=== PATIENT | female | born 1930 ===

== ENCOUNTER 2016-12-10 15:16 | Inpatient (IN) | payer MEDICARE, MEDICAID ==
--- NOTE | 2016-12-10 16:01 | ED PDOC ---
Lower Extremity Pain/Injury Time Seen by Provider: 12/10/16 15:55 Chief Complaint (Nursing): Lower Extremity Problem/Injury Chief Complaint (Provider): knee problem History Per: Patient, EMS, Family (Son), Other (Records) History/Exam Limitations: other (Mental status) Onset/Duration Of Symptoms: Days Current Symptoms Are (Timing): Still Present Additional Complaint(s): 86 y/o F with PMHx of R/knee replacement around 15 years ago presents with son transferred from [facility] for L/knee wound and hardware protruding from the lateral aspect of the knee. C/O pain with palpation in the area, denies vomiting, nausea, CP, palpitations, changes in urination or stools or SOB. Patient's son states they don't know exactly for how long the wound have been present. Denies recent trauma. Patient and son are poor historians. As per son, patient is being transferred for knee repair. [facility] to [facility] patient has Hx of liver cirrhosis and GI bleeding in the past. Past Medical History Vital Signs: Last Vital Signs Temp 97.3 F L 12/10/16 15:17 Pulse 64 12/10/16 15:17 Resp 16 12/10/16 15:17 BP 119/56 L 12/10/16 15:17 Pulse Ox 98 12/10/16 15:17 - Medical History PMH: Dementia, HTN - Surgical History Other surgeries: R/Knee replacement - Family History Family History: States: No Known Family Hx - Living Arrangements Living Arrangements: [facility] - Home Medications Home Medications: Ambulatory Orders Medication Instructions Recorded Acetaminophen [Tylenol 325mg tab] 650 mg PO Q6H PRN 05/23/16 Acetaminophen [Tylenol 325mg tab] 650 mg PO Q6H PRN 05/23/16 Citalopram [celeXA] 10 mg PO HS 05/23/16 Iron Polysaccharide [Ferrex-150] 150 mg PO DAILY 05/23/16 Lisinopril 2.5 mg PO DAILY 05/23/16 Magnesium Hydroxide [Milk Of 30 ml PO Q72 PRN 05/23/16 Magnesia] Pantoprazole Sodium [Protonix] 40 mg PO Q12H 05/23/16 Ursodiol [Marta] 250 mg PO BID 05/23/16 Donepezil [Aricept] 10 mg PO HS 12/10/16 Levothyroxine [Synthroid] 75 mcg PO DAILY 12/10/16 Memantine [Namenda] 10 mg PO BID 12/10/16 Multimineral/Multivitamin 1 tab PO DAILY 12/10/16 [Therapeutic-M Tab] Mupirocin 2% Ointment [Bactroban 1 appl TOP BID 12/10/16 Ointment] Propranolol [Inderal] 10 mg PO Q8H 12/10/16 - Allergies Allergies/Adverse Reactions: Allergies Allergy/AdvReac Type Severity Reaction Status Date / Time No Known Allergies Allergy Verified 05/23/16 11:21 Review of Systems ROS Statement: Except As Marked, All Systems Reviewed And Found Negative Musculoskeletal: Positive for: Other (Knee pain, knee wound) Physical Exam - Reviewed Nursing Documentation Reviewed: Yes Vital Signs Reviewed: Yes - Physical Exam Appears: Positive for: Non-toxic, No Acute Distress Skin: Positive for: Warm Eye Exam: Positive for: PERRL Cardiovascular/Chest: Positive for: Regular Rate, Rhythm. Negative for: Gallop Respiratory: Positive for: Normal Breath Sounds. Negative for: Crackles, Wheezing Pulses-Dorsalis Pedis (L): 2+ Pulses-Dorsalis Pedis (R): 2+ Gastrointestinal/Abdominal: Positive for: Soft. Negative for: Tenderness Extremity: Positive for: Deformity (Knee), Other (ROM R/knee slightly limited. THere is a linear wound in the anterolateral aspect of the r/knee about 4cm. Hardware observed to be protruding from the wound. NO cellulitis associated). Negative for: Pedal Edema, Calf Tenderness, Swelling Neurologic/Psych: Positive for: Alert, Other (Memory loss. ). Negative for: Oriented (Partially) - ECG O2 Sat by Pulse Oximetry: 98 Medical Decision Making Medical Decision Makin86 y/o with PMHx of knee replacement presents for knee pain and wound R/Knee wound S/p R/knee replacement 15 years ago No evident signs of skin or joint infection R/Knee xray and CT CBC/CMP/UA VS WNL Patient will be admitted for Orthopedic Sx eval Disposition - Clinical Impression Clinical Impression: Open wound of knee - Patient ED Disposition Is Patient to be Admitted: Yes - Disposition Disposition: Transfer of Care Disposition Time: 17:00 Condition: STABLE
--- NOTE | 2016-12-10 16:56 | RAD ---
PROCEDURE: Right Knee Radiographs. HISTORY: knee prostesis problem COMPARISON: Right knee radiographs 05/23/2016. FINDINGS: BONES: No acute fracture dislocation is identified. Diffuse osteopenia suggests osteoporosis. Prior right knee told knee replacement hardware is unchanged in appearance and positioning. Local soft tissues are stable and unremarkable appearing. No overt radiographic sign suggests loosening of either prosthetic device. JOINTS: As above. JOINT EFFUSION: None. OTHER FINDINGS: None. IMPRESSION: No acute fracture dislocation with diffuse osteopenia suggests osteoporosis. Normal change in the appearance of right total knee replacement hardware as discussed above.
[2016-12-10 16:59] LABS: BASO % 1.1 % (0.0-2.0); EOS # 0.2 K/uL (0.0-0.7); EOS % 6.2 % (0.0-4.0); HEMOGLOBIN 12.6 g/dL (12.0-16.0); LYMPH # 1.4 K/uL (1.0-4.3); LYMPH % 36.8 % (20.0-40.0); MEAN CELL VOLUME 94.3 fl (81.0-99.0); MEAN CORPUSCULAR HGB CONC 32.9 g/dL (33.0-37.0); MEAN PLATELET VOLUME 9.5 fl (7.2-11.7); MONO # 0.5 K/uL (0.0-0.8); NEUT # 1.6 K/uL (1.8-7.0); NEUT % 43.9 % (50.0-75.0); NRBC % 0.1 % (0.0-0.0); RBC 4.08 Mil/uL (3.80-5.20); RED CELL DISTRIBUTION WIDTH 15.3 % (11.5-14.5); WHITE BLOOD COUNT 3.7 K/uL (4.8-10.8)
--- NOTE | 2016-12-10 17:31 | CP.PCM.HP ---
History of Present Illness - History of Present Illness History of Present Illness: 86 yo female with history of CHF, DM2, Hypothyroidism, HLD, Dementia, HTN, Abdominal Mass, Malignant Ovarian Tumor and Liver Cirrhosis with bleeding esophageal varices last year brought in here as per recommendation from Dr Castle for possible surgical procedure on the right knee which had started leaking serous fluid a year ago later forming a crater exposing a white prosthetic material on the right knee. 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 Patient had been non-ambulatory since then. Present on Admission - Present on Admission Any Indicators Present on Admission: No History of DVT/PE: No History of Uncontrolled Diabetes: No Urinary Catheter: No Decubitus Ulcer Present: No Review of Systems - Review of Systems Systems not reviewed;Unavailable: Dementia Past Patient History - Tetanus Immunizations Tetanus Immunization: Unknown - Past Social History Smoking Status: Unknown If Ever Smoked Alcohol: Other (relatives remembered her drinking heavily before) Home Situation {Lives}: Alf - CARDIAC Hx Congestive Heart Failure: Yes Hx Hypertension: Yes - PULMONARY Hx Pneumonia: Yes - NEUROLOGICAL Hx Dementia: Yes - ENDOCRINE/METABOLIC Hx Diabetes Mellitus Type 2: Yes Hx Hypothyroidism: Yes - MUSCULOSKELETAL/RHEUMATOLOGICAL Hx Arthritis: Yes Hx Fractures: Yes Other/Comment: gen. muscle weakness, rt. artificial knee joint, diff. walking - GASTROINTESTINAL Other/Comment: gi hemorrhage - GENITOURINARY/GYNECOLOGICAL Hx Urinary Tract Infection: Yes Other/Comment: malignant neoplasm ovary - PSYCHIATRIC Hx Substance Use: No - SURGICAL HISTORY Hx Surgeries: Yes Hx Orthopedic Surgery: Yes - ANESTHESIA Hx Anesthesia: Yes Meds Allergies/Adverse Reactions: Allergies Allergy/AdvReac Type Severity Reaction Status Date / Time No Known Allergies Allergy Verified 05/23/16 11:21 Physical Exam - Constitutional Appears: No Acute Distress - Head Exam Head Exam: ATRAUMATIC - Eye Exam Eye Exam: absent: Scleral icterus - ENT Exam ENT Exam: Mucous Membranes Moist - Neck Exam Neck exam: Negative for: Meningismus - Respiratory Exam Respiratory Exam: absent: Rhonchi, Wheezes, Respiratory Distress - Cardiovascular Exam Cardiovascular Exam: REGULAR RHYTHM, +S1, +S2 - GI/Abdominal Exam GI & Abdominal Exam: Distended, Soft. absent: Tenderness - Rectal Exam Rectal Exam: Deferred - Extremities Exam Extremities exam: Negative for: calf tenderness, full ROM (right knee with 2 cm crater exposing a white plastic like material), pedal edema - Neurological Exam Neurological exam: Alert - Psychiatric Exam Psychiatric exam: Normal Affect - Skin Skin Exam: Dry Results - Vital Signs Recent Vital Signs: Last Vital Signs Temp 97.3 F L 12/10/16 15:17 Pulse 64 12/10/16 15:17 Resp 16 12/10/16 15:17 BP 119/56 L 12/10/16 15:17 Pulse Ox 98 12/10/16 16:52 - Labs Result Diagrams: 12/10/16 16:40 Labs: Laboratory Results - last 24 hr 12/10/16 16:40 WBC 3.7 L RBC 4.08 Hgb 12.6 Hct 38.4 MCV 94.3 D MCH 31.0 MCHC 32.9 L RDW 15.3 H Plt Count 96 L MPV 9.5 Neut % (Auto) 43.9 L Lymph % (Auto) 36.8 Florence % (Auto) 12.0 H Eos % (Auto) 6.2 H Baso % (Auto) 1.1 Neut # 1.6 L Lymph # 1.4 Florence # 0.5 Eos # 0.2 Baso # 0.0 Assessment & Plan (1) Open wound of knee Status: Acute Comment: admit to med/surg. blood culture x 2. wound cultutre on discharge of right knee. ID consult with Dr Saeed. cardiology consult with Dr Monaco for cardiac clearance. Zosyn 3.375 gm IV q 6hrs. Vancomycin 1gm IV q 12hrs. Vanco trough on at 830am (2) Liver cirrhosis Status: Acute Comment: continue Propranolol 10mg PO q 8hrs. abdominal sonogram (3) CHF (congestive heart failure) Status: Acute Comment: ECHO. cardiology consult with Dr Monaco (4) DM2 (diabetes mellitus, type 2) Status: Acute Comment: accuchek ACHS. HgA1C, BMP in am. history of diabetes noted in correction paper and confirmed by family (5) HTN (hypertension) Status: Acute Comment: BP controlled. continue Lisinopril plus Propranolol (given for portal HTN) (6) Dementia Status: Acute Comment: on Namenda and Aricept (7) DVT prophylaxis Status: Acute Comment: avoid anti coagulant because of history of GI bleed and esophageal varices
[2016-12-10 17:32] LABS: BLOOD UREA NITROGEN 12 mg/dl (7-17); CALCIUM 9.6 mg/dL (8.4-10.2); GFR AFRICAN-AMERICAN > 60; GFR NON-AFRICAN AMERICAN > 60
[2016-12-10 17:38] LABS: INR 1.2 (0.9-1.2); PARTIAL THROMBOPLASTIN TIME 37.8 Seconds (25.6-37.1); PROTHROMBIN TIME 12.6 Seconds (9.8-13.1)
[2016-12-10] MEDS ORDERED: Magnesium Hydroxide Susp 30 ml UD PO PRN (17:50)
--- NOTE | 2016-12-10 18:28 | CP.PCM.PN ---
Subjective - Date & Time of Evaluation Date of Evaluation: 12/10/16 Time of Evaluation: 18:26 - Subjective Subjective: I D NOTE INITIAL ANTIBIOTIC COVERAGE ORDERED Objective - Vital Signs/Intake and Output Vital Signs (last 24 hours): Temp Pulse Resp BP Pulse Ox 98.2 F 68 18 145/53 L 99 12/10/16 18:22 12/10/16 18:22 12/10/16 18:22 12/10/16 18:22 12/10/16 18:19 - Medications Medications: Current Medications Citalopram Hydrobromide (Celexa) 10 mg PO HS [facility] Donepezil HCl (Aricept) 10 mg PO HS [facility] Home Med (Iron Polysaccharide [Ferrex-150]) 150 mg PO DAILY [facility] Home Med (Ursodiol [Marta]) 250 mg PO BID [facility] Vancomycin HCl 1 gm/ Sodium (Chloride) 250 mls @ 166.667 mls/hr IVPB Q12 [facility] Piperacillin Sod/Tazobactam (Sod 3.375 gm/ Sodium Chloride) 100 mls @ 100 mls/ hr IVPB Q12 [facility] Levothyroxine Sodium (Synthroid) 75 mcg PO DAILY@0630 [facility] Lisinopril (Zestril) 2.5 mg PO DAILY [facility] Magnesium Hydroxide (Milk Of Magnesia) 30 ml PO Q72 PRN PRN Reason: Constipation Memantine (Namenda) 10 mg PO BID [facility] Multivitamins/Minerals (Therapeutic-M Tab) 1 tab PO DAILY [facility] Mupirocin (Bactroban Ointment) 1 applic TOP BID [facility] Pantoprazole Sodium (Protonix Ec Tab) 40 mg PO Q12H [facility] Propranolol HCl (Inderal) 10 mg PO Q8H [facility] - Labs Labs: 12/10/16 16:40 12/10/16 16:40 PT 12.6 Seconds (9.8-13.1) 12/10/16 16:40 INR 1.2 (0.9-1.2) 12/10/16 16:40 APTT 37.8 Seconds (25.6-37.1) H 12/10/16 16:40
[2016-12-10] MEDS: Piperacillin/Tazobact 3.375 GM in Sodium Chloride 0.9% 100 ML IVPB SCH (21:00)
[2016-12-10] MEDS: Pantoprazole 40 mg EC Tab PO SCH (21:59)
[2016-12-11] MEDS: Levothyroxine 75 MCG TAB PO SCH (06:29)
[2016-12-11] MEDS: Pantoprazole 40 mg EC Tab PO SCH ×2 (07:05→18:11)
[2016-12-11 07:28] LABS: BLOOD UREA NITROGEN 12 mg/dl (7-17); CALCIUM 9.3 mg/dL (8.4-10.2); GFR AFRICAN-AMERICAN > 60; GFR NON-AFRICAN AMERICAN 59
[2016-12-11 07:33] LABS: EOS # 0.2 K/uL (0.0-0.7); EOS % 5.9 % (0.0-4.0); HEMOGLOBIN 11.9 g/dL (12.0-16.0); LYMPH # 1.1 K/uL (1.0-4.3); LYMPH % 32.8 % (20.0-40.0); MEAN CELL VOLUME 94.7 fl (81.0-99.0); MEAN CORPUSCULAR HGB CONC 32.8 g/dL (33.0-37.0); MONO # 0.4 K/uL (0.0-0.8); MONO % 12.1 % (0.0-10.0); NEUT # 1.7 K/uL (1.8-7.0); NEUT % 48.2 % (50.0-75.0); NRBC % 0.4 % (0.0-0.0); RBC 3.82 Mil/uL (3.80-5.20); RED CELL DISTRIBUTION WIDTH 15.3 % (11.5-14.5); WHITE BLOOD COUNT 3.5 K/uL (4.8-10.8)
[2016-12-11] MEDS ORDERED: URSODIOL 250 MG PO SCH (09:00)
[2016-12-11] MEDS: Multivitamin With Minerals Tab PO SCH (09:06)
[2016-12-11] MEDS: Piperacillin/Tazobact 3.375 GM in Sodium Chloride 0.9% 100 ML IVPB SCH ×2 (09:08→20:38)
--- NOTE | 2016-12-11 09:35 | CARD ---
APPROVED REPORT EXAM: Two-dimensional and M-mode echocardiogram with Doppler and color Doppler. Other Information Quality : FairRhythm : NSR Technically limited study due to vERY POOR PARASTERNAL ECHO WINDOW INDICATION Pre-Op Mitral Valve E/A ratio0.0 TDI E/Lateral E'0.0E/Medial E'0.0 Tricuspid Valve TR Peak [id number] [id number] Peak Gr.24mmHg [id number] LEFT VENTRICLE The left ventricle is normal size. There is normal left ventricular wall thickness. Overall LV systolic function appeared preserved. LVEF could not be assesed. Individual LV segments could not be examined and their motion pattern could not be evaluated Could not be assesed. RIGHT VENTRICLE The right ventricle is normal size. There is normal right ventricular wall thickness. The right ventricular systolic function is normal. ATRIA The left atrium size is normal. The right atrium size is normal. AORTIC VALVE Appeared sclerotic No aortic regurgitation is present. Systolic flow pattern could not be evaluated MITRAL VALVE Mitral annular calcification is moderate to severe. There is no evidence of mitral valve prolapse. Could not be evaluated. Could not be evaluated. TRICUSPID VALVE The tricuspid valve is normal in structure. There is mild tricuspid regurgitation. Right ventricular systolic pressure is estimated at 33 mmHg. There is mild pulmonary hypertension. PULMONIC VALVE The pulmonic valve is not well visualized. Could not be evaluated GREAT VESSELS The aortic root is normal in size. The IVC was not visualized. PERICARDIAL EFFUSION The pericardium appears normal. <Conclusion> Extremely poor echo window with poor imges and an extremely poor doppler signal Mitral and aortic valves could not be interrogated. The left ventricle is normal size. There is normal left ventricular wall thickness. Individual LV segments could not be examined and their motion pattern could not be evaluated Overall LV systolic function appeared preserved. LVEF could not be assesed.
--- NOTE | 2016-12-11 10:05 | CT ---
PROCEDURE: HISTORY: knee prostesis problem COMPARISON: TECHNIQUE: FINDINGS: Evaluation demonstrates previous total knee arthroplasty with streak artifact and beam hardening artifact limiting assessment. The lateral patella appears to encroach and protrude beyond the skin surface. Recommend clinical correlation. The patella is not well visualized due to beam hardening artifact. There is no joint effusion. There is diffuse muscle atrophy. There is no evidence of loosening or infection. There is no fracture or dislocation. IMPRESSION: As above.
--- NOTE | 2016-12-11 11:52 | CP.PCM.CON ---
History of Present Illness - History of Present Illness History of Present Illness: THE PATIENT IS AN 86 YEAR OLD FEMALE [place] WHO HAD A RIGHT TKR SEVERAL YEARS AGO AND HAS HAD A SKIN OPENING OVER IT WITH DRAINAGE FOR ABOUT ONE YEAR TREATED CONSERVATIVE WITH LOCAL WOUND CARE. THE PLASTIC HARDWARE IS NOW SHOWING SO SHE WAS ADMITTED FOR WOUND ASRE ORTHOPEDIC INTERVENTION. SHE IS [place] IN THE [place]. SHE ALSO HAS A HISTORY OF DEMENTIA, CIRRHOSIS OF THE LIVER WITH A GI BLEED ABOUT 6 MOS AGO, HYPERTENSION, HYPERLIPIDEMIA AND DIABETES MELLITUS. HER MEDICAL CHART STATES THAT SHE HAD CHF BUT THE FAMILY IS UNAWARE OF ANY CAD OR HI AND IS UNAWARE OF A CHF DIAGNOSIS BUT SHE DID HAVE SOB BEFORE. CARDIOLOGY IS NOW ASKED TO SEE HER FOR CLEARANCE SHOULD SHE UNDERGO SURGERY. SHE DENIES CHEST PAIN OR SOB AT THE RESENT TIME. Past Patient History - Tetanus Immunizations Tetanus Immunization: Unknown - Past Medical History & Family History Past Medical History?: Yes - Past Social History Smoking Status: Unknown If Ever Smoked - CARDIAC Hx Cardiac Disorders: Yes Hx Congestive Heart Failure: Yes Hx Hypercholesterolemia: Yes Hx Hypertension: Yes - PULMONARY Hx Respiratory Disorders: Yes Hx Pneumonia: Yes - NEUROLOGICAL Hx Dementia: Yes - RENAL Hx Chronic Kidney Disease: Yes - ENDOCRINE/METABOLIC Hx Endocrine Disorders: Yes Hx Diabetes Mellitus Type 2: Yes Hx Hypothyroidism: Yes - HEMATOLOGICAL/ONCOLOGICAL Hx Blood Disorders: Yes - MUSCULOSKELETAL/RHEUMATOLOGICAL Hx Musculoskeletal Disorders: Yes Hx Arthritis: Yes Hx Falls: (unknown) - GASTROINTESTINAL Hx Liver Failure: Yes (liver cirrhosis) Other/Comment: gi hemorrhage/abdominal mass /bleeding esophageal varices - GENITOURINARY/GYNECOLOGICAL Hx Genitourinary Disorders: Yes Hx Ovarian Cancer: Yes (malignant ovarian tumor) Hx Urinary Tract Infection: Yes - PSYCHIATRIC Hx Psychophysiologic Disorder: Yes Hx Substance Use: (unknown) - SURGICAL HISTORY Hx Surgeries: Yes Hx Orthopedic Surgery: Yes (rt knee replacement 20 yrs ago) - ANESTHESIA Hx Anesthesia: Yes Hx Anesthesia Reactions: No Meds Allergies/Adverse Reactions: Allergies Allergy/AdvReac Type Severity Reaction Status Date / Time No Known Allergies Allergy Verified 05/23/16 11:21 - Medications Medications: Current Medications Citalopram Hydrobromide (Celexa) 10 mg PO HS [facility] Last Admin: 12/10/16 21:57 Dose: 10 mg Donepezil HCl (Aricept) 10 mg PO HS [facility] Last Admin: 12/10/16 21:57 Dose: 10 mg Home Med (Iron Polysaccharide [Ferrex-150]) 150 mg PO DAILY [facility] Home Med (Ursodiol [Marta]) 250 mg PO BID [facility] Vancomycin HCl 1 gm/ Sodium (Chloride) 250 mls @ 166.667 mls/hr IVPB Q12 [facility] Last Admin: 12/11/16 09:07 Dose: 166.667 mls/hr Piperacillin Sod/Tazobactam (Sod 3.375 gm/ Sodium Chloride) 100 mls @ 100 mls/ hr IVPB Q12 [facility] Last Admin: 12/11/16 09:08 Dose: 100 mls/hr Levothyroxine Sodium (Synthroid) 75 mcg PO DAILY@0630 [facility] Last Admin: 12/11/16 06:29 Dose: 75 mcg Lisinopril (Zestril) 2.5 mg PO DAILY [facility] Last Admin: 12/11/16 09:03 Dose: 2.5 mg Magnesium Hydroxide (Milk Of Magnesia) 30 ml PO Q72 PRN PRN Reason: Constipation Memantine (Namenda) 10 mg PO BID [facility] Last Admin: 12/11/16 09:05 Dose: 10 mg Multivitamins/Minerals (Therapeutic-M Tab) 1 tab PO DAILY [facility] Last Admin: 12/11/16 09:06 Dose: 1 tab Mupirocin (Bactroban Ointment) 1 applic TOP BID [facility] Last Admin: 12/11/16 09:09 Dose: 1 applic Pantoprazole Sodium (Protonix Ec Tab) 40 mg PO Q12H [facility] Last Admin: 12/11/16 07:05 Dose: 40 mg Propranolol HCl (Inderal) 10 mg PO Q8H [facility] Last Admin: 12/11/16 09:04 Dose: 10 mg Physical Exam - Respiratory Exam Respiratory Exam: Clear to Auscultation Bilateral - Cardiovascular Exam Cardiovascular Exam: REGULAR RHYTHM, +S1, +S2 - Extremities Exam Additional comments: NO LE EDEMA - Additional Findings Additional findings: EKG NSR ECHO SHOWS GOOD LV SYSTOLIC FUNCTION, MITRAL ANNULAR CALCIFICATION, AORTIC SCLEROSIS WITHOUT STENOSIS INR 1,[address] 80K Results - Vital Signs Recent Vital Signs: Last Vital Signs Temp 98.1 F 12/11/16 07:46 Pulse 59 L 12/11/16 09:04 Resp 20 12/11/16 07:46 BP 152/68 H 12/11/16 09:04 Pulse Ox 98 12/11/16 07:46 - Labs Result Diagrams: 12/11/16 06:25 12/11/16 06:25 Labs: Laboratory Results - last 24 hr 12/10/16 12/10/16 12/10/16 16:40 16:40 16:40 WBC 3.7 L RBC 4.08 Hgb 12.6 Hct 38.4 MCV 94.3 D MCH 31.0 MCHC 32.9 L RDW 15.3 H Plt Count 96 L MPV 9.5 Neut % (Auto) 43.9 L Lymph % (Auto) 36.8 Smith % (Auto) 12.0 H Eos % (Auto) 6.2 H Baso % (Auto) 1.1 Neut # 1.6 L Lymph # 1.4 Smith # 0.5 Eos # 0.2 Baso # 0.0 PT 12.6 INR 1.2 APTT 37.8 H Sodium 136 Potassium 4.5 Chloride 103 Carbon Dioxide 26 Anion Gap 12 BUN 12 Creatinine 0.8 Est GFR ( Amer) > 60 Est GFR (Non-Af Amer) > 60 POC Glucose (mg/dL) Random Glucose 81 Calcium 9.6 Blood Type Antibody Screen BBK History Checked 12/10/16 12/10/16 12/10/16 16:40 18:14 22:59 WBC RBC Hgb Hct MCV MCH MCHC RDW Plt Count MPV Neut % (Auto) Lymph % (Auto) Smith % (Auto) Eos % (Auto) Baso % (Auto) Neut # Lymph # Smith # Eos # Baso # PT INR APTT Sodium Potassium Chloride Carbon Dioxide Anion Gap BUN Creatinine Est GFR ( Amer) Est GFR (Non-Af Amer) POC Glucose (mg/dL) 90 76 Random Glucose Calcium Blood Type O POSITIVE Antibody Screen Negative BBK History Checked Patient has bt 12/11/16 12/11/16 12/11/16 06:25 06:25 06:43 WBC 3.5 L RBC 3.82 Hgb 11.9 L Hct 36.2 MCV 94.7 MCH 31.0 MCHC 32.8 L RDW 15.3 H Plt Count 80 L MPV 9.0 Neut % (Auto) 48.2 L Lymph % (Auto) 32.8 Smith % (Auto) 12.1 H Eos % (Auto) 5.9 H Baso % (Auto) 1.0 Neut # 1.7 L Lymph # 1.1 Smith # 0.4 Eos # 0.2 Baso # 0.0 PT INR APTT Sodium 137 Potassium 4.1 Chloride 105 Carbon Dioxide 25 Anion Gap 11 BUN 12 Creatinine 0.9 Est GFR ( Amer) > 60 Est GFR (Non-Af Amer) 59 POC Glucose (mg/dL) 78 Random Glucose 76 Calcium 9.3 Blood Type Antibody Screen BBK History Checked 12/11/16 10:37 WBC RBC Hgb Hct MCV MCH MCHC RDW Plt Count MPV Neut % (Auto) Lymph % (Auto) Smith % (Auto) Eos % (Auto) Baso % (Auto) Neut # Lymph # Smith # Eos # Baso # PT INR APTT Sodium Potassium Chloride Carbon Dioxide Anion Gap BUN Creatinine Est GFR ( Amer) Est GFR (Non-Af Amer) POC Glucose (mg/dL) 79 Random Glucose Calcium Blood Type Antibody Screen BBK History Checked Assessment & Plan - Assessment and Plan (Free Text) Assessment: REMOTE RIGHT TKR WITH WOUND OPENING AND EXPOSURE OF ORTHOPEDIC HARDWARE STABLE CARDIAC HISTORY. CHF HISTORY? HYPERTENSION HYPERLIPIDEMIA CIRRHOSIS OF THE LIVER DEMENTIA THROMBOCYTOPENIA Plan: CONTINUE METOPROLOL AND ZESTRIL IV ANTIBIOTICS PER ID HEMATOLOGY TO SEE THE FAMILY WANTS TO DISCUSS TREATMENT OPTIONS WITH DR WEISS SHE IS A HIGH RISK FOR SURGERY AND IS BEDRIDDEN THE PATIENT IS CLEARED FOR SURGERY FROM THE CARDIAC VIEWPOINT
--- NOTE | 2016-12-11 15:20 | CP.PCM.PN ---
Subjective - Date & Time of Evaluation Date of Evaluation: 12/11/16 Time of Evaluation: 11:20 - Subjective Subjective: Pt seen and examined. Appeared calm and relax. Denied any complaint. Objective - Vital Signs/Intake and Output Vital Signs (last 24 hours): Temp Pulse Resp BP Pulse Ox 98.1 F 59 L 20 152/68 H 98 12/11/16 07:46 12/11/16 09:04 12/11/16 07:46 12/11/16 09:04 12/11/16 07:46 - Medications Medications: Current Medications Citalopram Hydrobromide (Celexa) 10 mg PO [facility] Last Admin: 12/10/16 21:57 Dose: 10 mg Donepezil HCl (Aricept) 10 mg PO [facility] Last Admin: 12/10/16 21:57 Dose: 10 mg Home Med (Iron Polysaccharide [Ferrex-150]) 150 mg PO DAILY [facility] Home Med (Ursodiol [Marta]) 250 mg PO BID [facility] Vancomycin HCl 1 gm/ Sodium (Chloride) 250 mls @ 166.667 mls/hr IVPB Q12 [facility] Last Admin: 12/11/16 09:07 Dose: 166.667 mls/hr Piperacillin Sod/Tazobactam (Sod 3.375 gm/ Sodium Chloride) 100 mls @ 100 mls/ hr IVPB Q12 [facility] Last Admin: 12/11/16 09:08 Dose: 100 mls/hr Levothyroxine Sodium (Synthroid) 75 mcg PO DAILY@0630 [facility] Last Admin: 12/11/16 06:29 Dose: 75 mcg Lisinopril (Zestril) 2.5 mg PO DAILY [facility] Last Admin: 12/11/16 09:03 Dose: 2.5 mg Magnesium Hydroxide (Milk Of Magnesia) 30 ml PO Q72 PRN PRN Reason: Constipation Memantine (Namenda) 10 mg PO BID [facility] Last Admin: 12/11/16 09:05 Dose: 10 mg Multivitamins/Minerals (Therapeutic-M Tab) 1 tab PO DAILY [facility] Last Admin: 12/11/16 09:06 Dose: 1 tab Mupirocin (Bactroban Ointment) 1 applic TOP BID [facility] Last Admin: 12/11/16 09:09 Dose: 1 applic Pantoprazole Sodium (Protonix Ec Tab) 40 mg PO Q12H [facility] Last Admin: 12/11/16 07:05 Dose: 40 mg Propranolol HCl (Inderal) 10 mg PO Q8H [facility] Last Admin: 12/11/16 09:04 Dose: 10 mg - Labs Labs: 12/11/16 06:25 12/11/16 06:25 PT 12.6 Seconds (9.8-13.1) 12/10/16 16:40 INR 1.2 (0.9-1.2) 12/10/16 16:40 APTT 37.8 Seconds (25.6-37.1) H 12/10/16 16:40 - Constitutional Appears: No Acute Distress - Head Exam Head Exam: ATRAUMATIC - Eye Exam Eye Exam: absent: Scleral icterus - ENT Exam ENT Exam: Mucous Membranes Moist - Neck Exam Neck Exam: absent: Meningismus - Respiratory Exam Respiratory Exam: absent: Rhonchi, Wheezes, Respiratory Distress - Cardiovascular Exam Cardiovascular Exam: REGULAR RHYTHM, +S1, +S2 - GI/Abdominal Exam GI & Abdominal Exam: Soft. absent: Tenderness - Rectal Exam Rectal Exam: Deferred - Extremities Exam Additional comments: right knee with 2 cm crater exposing a white plastic like material - Neurological Exam Neurological Exam: Alert - Psychiatric Exam Psychiatric exam: Flat Affect - Skin Skin Exam: Dry, Intact Assessment and Plan (1) Open wound of knee Status: Acute (2) Liver cirrhosis Status: Acute (3) CHF (congestive heart failure) Status: Acute (4) DM2 (diabetes mellitus, type 2) Status: Acute (5) HTN (hypertension) Status: Acute (6) Dementia Status: Acute (7) DVT prophylaxis Status: Acute - Assessment and Plan (Free Text) Assessment: 86 yo female with history of CHF, DM2, Hypothyroidism, HLD, Dementia, HTN, Abdominal Mass, Malignant Ovarian Tumor and Liver Cirrhosis with bleeding esophageal varices last year brought in here as per recommendation from Dr Castle for possible surgical procedure on the right knee which had started leaking serous fluid a year ago later forming a crater exposing a white prosthetic material on the right knee. 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 Patient had been non-ambulatory since then. (1) Open wound of knee blood culture and wound culture: pending ID consult with Dr Saeed appreciated Dr Monaco clearing patient for surgical procedure continue Zosyn 3.375 gm IV q 6hrs and Vancomycin 1gm IV q 12hrs. Vanco trough tomorrow at 830am (2) Liver cirrhosis continue Propranolol 10mg PO q 8hrs. noted to have history of portal HTN and esophageal varices (3) CHF (congestive heart failure) ECHO: preserved LV function Dr Monaco on consult, cardiac clearance approved (4) DM2 (diabetes mellitus, type 2) BS within normal range without medication HgA1C: pending patient may not have diabetes (5) HTN (hypertension) BP controlled. 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
--- NOTE | 2016-12-11 16:32 | CP.PCM.CON ---
History of Present Illness - History of Present Illness History of Present Illness: ID: 86 yo amber sdpeaking female CC : open R knee joint injury now 11 yrs as/p index arthroplasty HPI: [id number] yo female well known to my practice presents s/P open laceration to R knee 11 yrs s/p index arthroplasty. Pt presents with open knee joint thru ER Pt had been consulted by DR Howie Dickerson when pt was in pt at [facility]. Pt admitted for medical clearance and for Arthrotomy/ irrigation and debridemnt and possible patella revision/possible patellectomy and extensor reconstruction ( David procedure) Past Patient History - Tetanus Immunizations Tetanus Immunization: Unknown - Past Medical History & Family History Past Medical History?: Yes - Past Social History Smoking Status: Unknown If Ever Smoked - CARDIAC Hx Cardiac Disorders: Yes Hx Congestive Heart Failure: Yes Hx Hypercholesterolemia: Yes Hx Hypertension: Yes - PULMONARY Hx Respiratory Disorders: Yes Hx Pneumonia: Yes - NEUROLOGICAL Hx Dementia: Yes - RENAL Hx Chronic Kidney Disease: Yes - ENDOCRINE/METABOLIC Hx Endocrine Disorders: Yes Hx Diabetes Mellitus Type 2: Yes Hx Hypothyroidism: Yes - HEMATOLOGICAL/ONCOLOGICAL Hx Blood Disorders: Yes - MUSCULOSKELETAL/RHEUMATOLOGICAL Hx Musculoskeletal Disorders: Yes Hx Arthritis: Yes Hx Falls: (unknown) - GASTROINTESTINAL Hx Liver Failure: Yes (liver cirrhosis) Other/Comment: gi hemorrhage/abdominal mass /bleeding esophageal varices - GENITOURINARY/GYNECOLOGICAL Hx Genitourinary Disorders: Yes Hx Ovarian Cancer: Yes (malignant ovarian tumor) Hx Urinary Tract Infection: Yes - PSYCHIATRIC Hx Psychophysiologic Disorder: Yes Hx Substance Use: (unknown) - SURGICAL HISTORY Hx Surgeries: Yes Hx Orthopedic Surgery: Yes (rt knee replacement 20 yrs ago) - ANESTHESIA Hx Anesthesia: Yes Hx Anesthesia Reactions: No Meds Allergies/Adverse Reactions: Allergies Allergy/AdvReac Type Severity Reaction Status Date / Time No Known Allergies Allergy Verified 05/23/16 11:21 - Medications Medications: Current Medications Citalopram Hydrobromide (Celexa) 10 mg PO [facility] Last Admin: 12/10/16 21:57 Dose: 10 mg Donepezil HCl (Aricept) 10 mg PO [facility] Last Admin: 12/10/16 21:57 Dose: 10 mg Home Med (Iron Polysaccharide [Ferrex-150]) 150 mg PO DAILY [facility] Home Med (Ursodiol [Marta]) 250 mg PO BID [facility] Vancomycin HCl 1 gm/ Sodium (Chloride) 250 mls @ 166.667 mls/hr IVPB Q12 [facility] Last Admin: 12/11/16 09:07 Dose: 166.667 mls/hr Piperacillin Sod/Tazobactam (Sod 3.375 gm/ Sodium Chloride) 100 mls @ 100 mls/ hr IVPB Q12 [facility] Last Admin: 12/11/16 09:08 Dose: 100 mls/hr Levothyroxine Sodium (Synthroid) 75 mcg PO DAILY@0630 [facility] Last Admin: 12/11/16 06:29 Dose: 75 mcg Lisinopril (Zestril) 2.5 mg PO DAILY [facility] Last Admin: 12/11/16 09:03 Dose: 2.5 mg Magnesium Hydroxide (Milk Of Magnesia) 30 ml PO Q72 PRN PRN Reason: Constipation Memantine (Namenda) 10 mg PO BID [facility] Last Admin: 12/11/16 09:05 Dose: 10 mg Multivitamins/Minerals (Therapeutic-M Tab) 1 tab PO DAILY [facility] Last Admin: 12/11/16 09:06 Dose: 1 tab Mupirocin (Bactroban Ointment) 1 applic TOP BID [facility] Last Admin: 12/11/16 09:09 Dose: 1 applic Pantoprazole Sodium (Protonix Ec Tab) 40 mg PO Q12H [facility] Last Admin: 12/11/16 07:05 Dose: 40 mg Propranolol HCl (Inderal) 10 mg PO Q8H [facility] Last Admin: 12/11/16 09:04 Dose: 10 mg Physical Exam - Additional Findings Additional findings: Exam sysrtemic excam- please refer to Dr Candelaria/DR Del Toro and DSr Badinj consult Musculoskekltal stance/ gait- defrred pt with open laceration lateral aspect of patell Xray reviewd- acceptable position of construct Results - Vital Signs Recent Vital Signs: Last Vital Signs Temp 98.1 F 12/11/16 07:46 Pulse 59 L 12/11/16 09:04 Resp 20 12/11/16 07:46 BP 152/68 H 12/11/16 09:04 Pulse Ox 98 12/11/16 07:46 - Labs Result Diagrams: 12/11/16 06:25 12/11/16 06:25 Labs: Laboratory Results - last 24 hr 0812/10/16 12/10/16 16:40 16:40 16:40 WBC 3.7 L RBC 4.08 Hgb 12.6 Hct 38.4 MCV 94.3 D MCH 31.0 MCHC 32.9 L RDW 15.3 H Plt Count 96 L MPV 9.5 Neut % (Auto) 43.9 L Lymph % (Auto) 36.8 Real % (Auto) 12.0 H Eos % (Auto) 6.2 H Baso % (Auto) 1.1 Neut # 1.6 L Lymph # 1.4 Real # 0.5 Eos # 0.2 Baso # 0.0 PT 12.6 INR 1.2 APTT 37.8 H Sodium 136 Potassium 4.5 Chloride 103 Carbon Dioxide 26 Anion Gap 12 BUN 12 Creatinine 0.8 Est GFR ( Amer) > 60 Est GFR (Non-Af Amer) > 60 POC Glucose (mg/dL) Random Glucose 81 Calcium 9.6 Blood Type Antibody Screen BBK History Checked 12/10/16 12/10/16 12/10/16 16:40 18:14 22:59 WBC RBC Hgb Hct MCV MCH MCHC RDW Plt Count MPV Neut % (Auto) Lymph % (Auto) Real % (Auto) Eos % (Auto) Baso % (Auto) Neut # Lymph # Real # Eos # Baso # PT INR APTT Sodium Potassium Chloride Carbon Dioxide Anion Gap BUN Creatinine Est GFR ( Amer) Est GFR (Non-Af Amer) POC Glucose (mg/dL) 90 76 Random Glucose Calcium Blood Type O POSITIVE Antibody Screen Negative BBK History Checked Patient has bt 12/11/16 12/11/16 12/11/16 06:25 06:25 06:43 WBC 3.5 L RBC 3.82 Hgb 11.9 L Hct 36.2 MCV 94.7 MCH 31.0 MCHC 32.8 L RDW 15.3 H Plt Count 80 L MPV 9.0 Neut % (Auto) 48.2 L Lymph % (Auto) 32.8 Real % (Auto) 12.1 H Eos % (Auto) 5.9 H Baso % (Auto) 1.0 Neut # 1.7 L Lymph # 1.1 Real # 0.4 Eos # 0.2 Baso # 0.0 PT INR APTT Sodium 137 Potassium 4.1 Chloride 105 Carbon Dioxide 25 Anion Gap 11 BUN 12 Creatinine 0.9 Est GFR ( Amer) > 60 Est GFR (Non-Af Amer) 59 POC Glucose (mg/dL) 78 Random Glucose 76 Calcium 9.3 Blood Type Antibody Screen BBK History Checked 12/11/16 12/11/16 10:37 15:29 WBC RBC Hgb Hct MCV MCH MCHC RDW Plt Count MPV Neut % (Auto) Lymph % (Auto) Real % (Auto) Eos % (Auto) Baso % (Auto) Neut # Lymph # Real # Eos # Baso # PT INR APTT Sodium Potassium Chloride Carbon Dioxide Anion Gap BUN Creatinine Est GFR ( Amer) Est GFR (Non-Af Amer) POC Glucose (mg/dL) 79 101 Random Glucose Calcium Blood Type Antibody Screen BBK History Checked Assessment & Plan - Assessment and Plan (Free Text) Assessment: A-0 open knee joint injury with damge to poly paterlla P- when medically/hematologically stable- pt to OR for arthrotomy, irrigation/ debridement R knee
--- NOTE | 2016-12-11 21:19 | CP.PCM.CON ---
History of Present Illness - History of Present Illness History of Present Illness: 86 year old female with a history of HTN, DM, CHF, hypothyroid, ovarian cancer ( untreated), liver cirrhosis with varices complicated by GI bleeding, pancytopenia, admitted for orthopedic knee surgery. The patient has had progressive complications related to an open knee wound with drainage and exposure of hardware from prior orthopedic surgery. Conservative medical management and treatment has failed to resolve her joint issues and she is admitted for orthopedic surgery treatment. Due to a platelet count of 80,000, I have been asked to clear the patient for surgery. 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 Allergies: NKA Review of systems: All remaining review of systems including HEENT, cardiovacular, respiratory, gastrointestinal, genitoruinary, musculoskeletal, dermatologic, neurologic, and psychiatric are negative unless mentioned in the HPI. Past Patient History - Tetanus Immunizations Tetanus Immunization: Unknown - Past Medical History & Family History Past Medical History?: Yes - Past Social History Smoking Status: Unknown If Ever Smoked - CARDIAC Hx Cardiac Disorders: Yes Hx Congestive Heart Failure: Yes Hx Hypercholesterolemia: Yes Hx Hypertension: Yes - PULMONARY Hx Respiratory Disorders: Yes Hx Pneumonia: Yes - NEUROLOGICAL Hx Dementia: Yes - RENAL Hx Chronic Kidney Disease: Yes - ENDOCRINE/METABOLIC Hx Endocrine Disorders: Yes Hx Diabetes Mellitus Type 2: Yes Hx Hypothyroidism: Yes - HEMATOLOGICAL/ONCOLOGICAL Hx Blood Disorders: Yes - MUSCULOSKELETAL/RHEUMATOLOGICAL Hx Musculoskeletal Disorders: Yes Hx Arthritis: Yes Hx Falls: (unknown) - GASTROINTESTINAL Hx Liver Failure: Yes (liver cirrhosis) Other/Comment: gi hemorrhage/abdominal mass /bleeding esophageal varices - GENITOURINARY/GYNECOLOGICAL Hx Genitourinary Disorders: Yes Hx Ovarian Cancer: Yes (malignant ovarian tumor) Hx Urinary Tract Infection: Yes - PSYCHIATRIC Hx Psychophysiologic Disorder: Yes Hx Substance Use: (unknown) - SURGICAL HISTORY Hx Surgeries: Yes Hx Orthopedic Surgery: Yes (rt knee replacement 20 yrs ago) - ANESTHESIA Hx Anesthesia: Yes Hx Anesthesia Reactions: No Meds Allergies/Adverse Reactions: Allergies Allergy/AdvReac Type Severity Reaction Status Date / Time No Known Allergies Allergy Verified 05/23/16 11:21 - Medications Medications: Current Medications Citalopram Hydrobromide (Celexa) 10 mg PO HS [facility] Last Admin: 12/10/16 21:57 Dose: 10 mg Donepezil HCl (Aricept) 10 mg PO [facility] Last Admin: 12/10/16 21:57 Dose: 10 mg Home Med (Iron Polysaccharide [Ferrex-150]) 150 mg PO DAILY [facility] Home Med (Ursodiol [Marta]) 250 mg PO BID [facility] Vancomycin HCl 1 gm/ Sodium (Chloride) 250 mls @ 166.667 mls/hr IVPB Q12 [facility] Last Admin: 12/11/16 09:07 Dose: 166.667 mls/hr Piperacillin Sod/Tazobactam (Sod 3.375 gm/ Sodium Chloride) 100 mls @ 100 mls/ hr IVPB Q12 [facility] Last Admin: 12/11/16 20:38 Dose: 100 mls/hr Levothyroxine Sodium (Synthroid) 75 mcg PO DAILY@0630 [facility] Last Admin: 12/11/16 06:29 Dose: 75 mcg Lisinopril (Zestril) 2.5 mg PO DAILY [facility] Last Admin: 12/11/16 09:03 Dose: 2.5 mg Magnesium Hydroxide (Milk Of Magnesia) 30 ml PO Q72 PRN PRN Reason: Constipation Memantine (Namenda) 10 mg PO BID [facility] Last Admin: 12/11/16 18:11 Dose: 10 mg Multivitamins/Minerals (Therapeutic-M Tab) 1 tab PO DAILY [facility] Last Admin: 12/11/16 09:06 Dose: 1 tab Mupirocin (Bactroban Ointment) 1 applic TOP BID [facility] Last Admin: 12/11/16 18:09 Dose: 1 applic Pantoprazole Sodium (Protonix Ec Tab) 40 mg PO Q12H [facility] Last Admin: 12/11/16 18:11 Dose: 40 mg Propranolol HCl (Inderal) 10 mg PO Q8H [facility] Last Admin: 12/11/16 18:12 Dose: 10 mg Physical Exam - Head Exam Head Exam: ATRAUMATIC - Eye Exam Eye Exam: Normal appearance - ENT Exam ENT Exam: Mucous Membranes Dry - Respiratory Exam Respiratory Exam: NORMAL BREATHING PATTERN - Cardiovascular Exam Cardiovascular Exam: +S1, +S2 - GI/Abdominal Exam GI & Abdominal Exam: Normal Bowel Sounds Results - Vital Signs Recent Vital Signs: Last Vital Signs Temp 98.6 F 12/11/16 16:27 Pulse 86 12/11/16 18:12 Resp 20 12/11/16 16:27 BP 119/54 L 12/11/16 18:12 Pulse Ox 100 12/11/16 16:27 - Labs Result Diagrams: 12/11/16 06:25 12/11/16 06:25 Labs: Laboratory Results - last 24 hr 12/10/16 12/10/16 12/10/16 16:40 18:14 22:59 WBC RBC Hgb Hct MCV MCH MCHC RDW Plt Count MPV Neut % (Auto) Lymph % (Auto) [place] % (Auto) Eos % (Auto) Baso % (Auto) Neut # Lymph # [place] # Eos # Baso # Sodium Potassium Chloride Carbon Dioxide Anion Gap BUN Creatinine Est GFR ( Amer) Est GFR (Non-Af Amer) POC Glucose (mg/dL) 90 76 Random Glucose Hemoglobin A1c Calcium Blood Type O POSITIVE Antibody Screen Negative Crossmatch IS Only See Detail BBK History Checked Patient has bt 12/11/16 12/11/16 12/11/16 06:25 06:25 06:43 WBC 3.5 L RBC 3.82 Hgb 11.9 L Hct 36.2 MCV 94.7 MCH 31.0 MCHC 32.8 L RDW 15.3 H Plt Count 80 L MPV 9.0 Neut % (Auto) 48.2 L Lymph % (Auto) 32.8 [place] % (Auto) 12.1 H Eos % (Auto) 5.9 H Baso % (Auto) 1.0 Neut # 1.7 L Lymph # 1.1 [place] # 0.4 Eos # 0.2 Baso # 0.0 Sodium 137 Potassium 4.1 Chloride 105 Carbon Dioxide 25 Anion Gap 11 BUN 12 Creatinine 0.9 Est GFR ( Amer) > 60 Est GFR (Non-Af Amer) 59 POC Glucose (mg/dL) 78 Random Glucose 76 Hemoglobin A1c Calcium 9.3 Blood Type Antibody Screen Crossmatch IS Only BBK History Checked 12/11/16 12/11/16 12/11/16 10:37 15:29 15:54 WBC RBC Hgb Hct MCV MCH MCHC RDW Plt Count MPV Neut % (Auto) Lymph % (Auto) [place] % (Auto) Eos % (Auto) Baso % (Auto) Neut # Lymph # [place] # Eos # Baso # Sodium Potassium Chloride Carbon Dioxide Anion Gap BUN Creatinine Est GFR ( Amer) Est GFR (Non-Af Amer) POC Glucose (mg/dL) 79 101 Random Glucose Hemoglobin A1c 5.1 Calcium Blood Type Antibody Screen Crossmatch IS Only BBK History Checked Assessment & Plan (1) Pancytopenia Assessment and Plan: likely related to liver disease, splenic sequestration the patient is high risk for bleeding complications given her cytopenias and liver disease. If the benefit of surgery outways the risk, I will plan to transfuse platelets prior to surgery for goal plt near 100,000. She will have a post transfusion CBC to document her blood counts are at goal prior to surgery. The patient is also s/p vitamin K for mild coagulpathy and she is cleared for surgery if INR <1.5. Any abnormal bleeding/hemostasis issues will be treated with blood, platelet, and plasma transfusions. Thank you for this interesting consult. Status: Acute
[2016-12-11 21:44] LABS: SQUAMOUS EPITHIAL 1 /hpf (0-5); URINE BACTERIA RARE (<OCC); URINE BILIRUBIN NEGATIVE (NEGATIVE); URINE BLOOD NEGATIVE (NEGATIVE); URINE CLARITY SLIGHTY-CLOUDY (Clear); URINE COLOR YELLOW (YELLOW); URINE GLUCOSE (UA) NEG (Normal); URINE LEUKOCYTE ESTERASE LARGE Leu/uL (Negative); URINE NITRATE NEGATIVE (NEGATIVE); URINE PROTEIN NEGATIVE (NEGATIVE); URINE UROBILINOGEN 0.2-1.0 mg/dL (0.2-1.0)
[2016-12-12] MEDS: Pantoprazole 40 mg EC Tab PO SCH ×2 (06:23→17:47)
[2016-12-12] MEDS: Levothyroxine 75 MCG TAB PO SCH (06:23)
[2016-12-12 07:10] LABS: HEMOGLOBIN 12.1 g/dL (12.0-16.0); MEAN CELL VOLUME 94.2 fl (81.0-99.0); MEAN CORPUSCULAR HEMOGLOBIN 30.9 pg (27.0-31.0); MEAN CORPUSCULAR HGB CONC 32.7 g/dL (33.0-37.0); RBC 3.93 Mil/uL (3.80-5.20); RED CELL DISTRIBUTION WIDTH 15.1 % (11.5-14.5); WHITE BLOOD COUNT 3.3 K/uL (4.8-10.8)
[2016-12-12] MEDS ORDERED: Absorbable Gelatin Sponge Size 100 ONE (07:10)
[2016-12-12] MEDS ORDERED: Ropivacaine 0.5% 30ML IV ONE (07:32)
[2016-12-12 07:45] LABS: INR 1.2 (0.9-1.2); PROTHROMBIN TIME 12.5 Seconds (9.8-13.1)
[2016-12-12 07:46] LABS: PARTIAL THROMBOPLASTIN TIME 37.3 Seconds (25.6-37.1)
[2016-12-12] MEDS ORDERED: Lactated Ringer's 500 ML IV ONE (08:00)
--- NOTE | 2016-12-12 09:19 | RAD ---
HISTORY: pre-op COMPARISON: No prior. FINDINGS: LUNGS: Fluid is seen in the minor fissure versus linear atelectasis adjacent to it. No acute infiltrate is identified and there is no definite pleural effusion either. Cardiac size is normal. No pulmonary derangement. PLEURA: No significant pleural effusion identified, no pneumothorax apparent. CARDIOVASCULAR: Normal. OSSEOUS STRUCTURES: No significant abnormalities. VISUALIZED UPPER ABDOMEN: Normal. OTHER FINDINGS: Elevation the right hemidiaphragm is identified of indeterminate etiology. IMPRESSION: No acute infiltrate or pleural effusion is identified. Trace fluid or linear atelectasis is seen associated with the minor fissure. Elevation the right hemidiaphragm is identified.
[2016-12-12] MEDS ORDERED: Midazolam 2 MG/2 ML VIAL ONE (09:30)
[2016-12-12] MEDS ORDERED: Propofol 10 mg/ml Inj (20 ML) ONE (09:30)
[2016-12-12] MEDS ORDERED: Phenylephrine 10 mg/ml Inj ONE (09:30)
[2016-12-12] MEDS ORDERED: Etomidate 20 mg/10ml Inj IV ONE (09:30)
[2016-12-12] MEDS ORDERED: Rocuronium 10 mg/ml (5 ml) ONE (09:30)
[2016-12-12] MEDS ORDERED: Succinylcholine 200 mg/10 ml Inj IV ONE (09:30)
[2016-12-12] MEDS ORDERED: ePHEDrine 50 mg/ml Inj ONE (09:31)
[2016-12-12 09:43] LABS: FLUID TYPE SYNOVIAL FLUID
[2016-12-12] MEDS ORDERED: Neostigmine Methylsulfate 3mg/3ml Syringe IV ONE (09:46)
[2016-12-12] MEDS ORDERED: Neostigmine Methylsulfate 2 MG/2 ML ML IV ONE ×2 (09:46→11:04)
[2016-12-12 09:47] LABS: SF GROSS APPEARANCE BLOODY (CLEAR); SYNOVIAL FLUID COMMENT CLOUDY
[2016-12-12] MEDS ORDERED: HYDROmorphone 0.5 mg/0.5 ml ISec IVP PRN (09:59)
--- NOTE | 2016-12-12 10:01 | PCM.ANESB3 ---
Femoral Nerve Block - Femoral Nerve Block Date of Procedure: 12/12/16 Anesthesiologist: elliot Pre-Procedure Diagnosis: r knee djd Post-Procedure Diagnosis: same Procedure Performed: Femoral Nerve Block Right - Procedure Femoral Nerve Block: The procedure was explained to the patient that it is for the post-operative pain management. Consent was obtained after a thorough discussion with the patient regarding the benefits and possible complications of local anesthetic block of the femoral nerve at the inguinal crease area. The patient was brought to the operating room and standard monitors were applied. Time-out was held with the circulating nurse to confirm the correct surgery and the appropriate block. After applying oxygen by nasal cannula and administering IV Sedation, patient was placed in supine position with fully extended lower extremities and the ___right groin exposed. The femoral artery was then carefully palpated. The ultrasound transducer was then applied to this area in the transverse plane and the femoral nerve was visualized lateral to the femoral artery and underneath the fascia iliaca. After thorough identification, the inguinal crease area was prepped with Betadine solution three times and 1 % Lidocaine was injected subcutaneously for topical anesthesia. At this point, a #22 gauge Stimuplex 2-inch needle was inserted immediately lateral to the femoral artery pulse at the inguinal crease and advanced perpendicularly. The needle was inserted to the ultrasound transducer in-plane towards the femoral nerve in a [id number] direction. Needle advancement was performed carefully under direct ultrasound visualization. Nerve stimulator was used and twitch of the quadriceps muscle was obtained at current of __2.0___ MA. After negative aspiration, __1___cc of __0.5___% ____ropivicaine ____was injected and this was followed with ____19__ cc of __0.5____ % __ ropivicaine . Under ultrasound guidance the local anesthetics were observed spreading below fascia iliaca and around the femoral nerve. The needle was removed intact and sterile dressing was applied. The patient had stable vital signs, was conscious and in no apparent distress. The patient tolerated the femoral nerve block well with stable vital signs and was prepared for subsequent surgery.
--- NOTE | 2016-12-12 10:03 | CP.PCM.PN ---
Subjective - Date & Time of Evaluation Date of Evaluation: 12/12/16 Time of Evaluation: 14:00 - Subjective Subjective: Patient seen and examined post op. Complains of pain to left knee . Hemodynamically stable, afebrile No acute issues overnight. Objective - Vital Signs/Intake and Output Vital Signs (last 24 hours): Temp Pulse Resp BP Pulse Ox 98.4 F 66 19 165/96 H 96 12/12/16 03:50 12/12/16 03:50 12/12/16 03:50 12/12/16 03:50 12/12/16 03:50 - Medications Medications: Current Medications Citalopram Hydrobromide (Celexa) 10 mg PO [facility] Last Admin: 12/11/16 22:00 Dose: 10 mg Donepezil HCl (Aricept) 10 mg PO [facility] Last Admin: 12/11/16 22:00 Dose: 10 mg Home Med (Iron Polysaccharide [Ferrex-150]) 150 mg PO DAILY [facility] Home Med (Ursodiol [Marta]) 250 mg PO BID [facility] Hydromorphone HCl (Dilaudid) 0.5 mg IVP Q5M PRN PRN Reason: Pain, severe (8-10) Stop: 12/12/16 11:59 Vancomycin HCl 1 gm/ Sodium (Chloride) 250 mls @ 166.667 mls/hr IVPB Q12 [facility] Last Admin: 12/11/16 22:01 Dose: 166.667 mls/hr Piperacillin Sod/Tazobactam (Sod 3.375 gm/ Sodium Chloride) 100 mls @ 100 mls/ hr IVPB Q12 [facility] Last Admin: 12/11/16 20:38 Dose: 100 mls/hr Levothyroxine Sodium (Synthroid) 75 mcg PO DAILY@0630 [facility] Last Admin: 12/12/16 06:23 Dose: Not Given Lisinopril (Zestril) 2.5 mg PO DAILY [facility] Last Admin: 12/11/16 09:03 Dose: 2.5 mg Magnesium Hydroxide (Milk Of Magnesia) 30 ml PO Q72 PRN PRN Reason: Constipation Memantine (Namenda) 10 mg PO BID [facility] Last Admin: 12/11/16 18:11 Dose: 10 mg Multivitamins/Minerals (Therapeutic-M Tab) 1 tab PO DAILY [facility] Last Admin: 12/11/16 09:06 Dose: 1 tab Mupirocin (Bactroban Ointment) 1 applic TOP BID [facility] Last Admin: 12/11/16 18:09 Dose: 1 applic Pantoprazole Sodium (Protonix Ec Tab) 40 mg PO Q12H [facility] Last Admin: 12/12/16 06:23 Dose: Not Given Propranolol HCl (Inderal) 10 mg PO Q8H [facility] Last Admin: 12/12/16 02:00 Dose: Not Given - Labs Labs: 12/12/16 06:20 12/11/16 06:25 PT 12.5 Seconds (9.8-13.1) 12/12/16 06:20 INR 1.2 (0.9-1.2) 12/12/16 06:20 APTT 37.3 Seconds (25.6-37.1) H 12/12/16 06:20 - Constitutional Appears: Non-toxic, No Acute Distress, Other (lethargic) - Head Exam Head Exam: ATRAUMATIC Additional comments: microcephaly - Eye Exam Eye Exam: EOMI, PERRL - ENT Exam ENT Exam: Mucous Membranes Dry, Normal Exam - Neck Exam Neck Exam: Normal Inspection - Respiratory Exam Respiratory Exam: Clear to Ausculation Bilateral, NORMAL BREATHING PATTERN. absent: Rales, Rhonchi, Wheezes - Cardiovascular Exam Cardiovascular Exam: REGULAR RHYTHM, RRR, +S1, +S2. absent: JVD - GI/Abdominal Exam GI & Abdominal Exam: Soft, Normal Bowel Sounds. absent: Distended, Guarding, Tenderness, Rebound - Rectal Exam Rectal Exam: Deferred - Extremities Exam Additional comments: right knee neal bandage in place warm to touch, pulses present - Neurological Exam Neurological Exam: Alert Additional comments: lethargic - Psychiatric Exam Psychiatric exam: Flat Affect - Skin Skin Exam: Dry, Warm Assessment and Plan - Assessment and Plan (Free Text) Assessment: 86 yo female with history of CHF, DM2, Hypothyroidism, HLD, Dementia, HTN, Abdominal Mass, Malignant Ovarian Tumor and Liver Cirrhosis with bleeding esophageal varices last year brought in here as per recommendation from Dr Castle for possible surgical procedure on the right knee which had started leaking serous fluid a year ago later forming a crater exposing a white prosthetic material on the right knee. 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 Patient had been non-ambulatory since then. 1. Open wound of right knee s/p knee revision arthroplasty orthopedist Dr. Castle following Patient was cleared for surgery by Dr. Monaco Follow up blood culture and wound culture ID consult with Dr Saeed appreciated continue Zosyn 3.375 gm IV q 6hrs and Vancomycin 1gm IV q 12hrs. Start PT and DVt prophylaxis as per ortho recommendations 2. Liver cirrhosis continue Propranolol 10mg PO q 8hrs. noted to have history of portal HTN and esophageal varices 3. CHF (congestive heart failure)-- unclear if patient has CHF ?-- most likely no CHF since EF is preserved ECHO: preserved LV function Dr Monaco on consult, cardiac clearance approved 4. DM2 ruled out BS within normal range without medication HgA1C: 5.1 5. HTN (hypertension) BP controlled. continue Lisinopril plus Propranolol (given for portal HTN) Hold BP medfs post oip due to hypotension Hydrate IVF 6. 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
[2016-12-12 10:21] LABS: FLUID TYPE SYNOVIAL FLUID
[2016-12-12] MEDS ORDERED: Lactated Ringer's 1,000 ML IV ONE (10:25)
[2016-12-12 10:48] LABS: SF GROSS APPEARANCE CLEAR (CLEAR)
--- NOTE | 2016-12-12 10:56 | PCM.SURG1 ---
Surgeon's Initial Post Op Note - Surgeon's Notes Surgeon: Tin Music Supervisor: STEFFEN Cruz Type of Anesthesia: General Endo, Block Regional Anesthesia Administered By: DR Inocente Washburn Pre-Operative Diagnosis: Patella fx dislocation s/p TKR- open Operative Findings: as above. fl;exion crontracture with fail;ure tiobial compopnent poly Post-Operative Diagnosis: open fx dislocation R prosthetic patella. tibal poly damage Operation Performed: Revision TKR- 2 components. ORIF patella fx with fxiation using #2 fiber wire. Removal hardware (deep). posterior capsular release. lateral patella retinacular release Specimen/Specimens Removed: patella poly/ tibial poly. A/O screw Estimated Blood Loss: EBL {In ML}: 25 Blood Products Given: N/A Drains Used: No Drains Post-Op Condition: Good Date of Surgery/Procedure: 12/12/16 Time of Surgery/Procedure: 09:10 (tiem in room 0800/ anetshesia indcution time)
--- NOTE | 2016-12-12 11:47 | CP.PCM.PN ---
Subjective - Date & Time of Evaluation Date of Evaluation: 12/12/16 Time of Evaluation: 07:00 - Subjective Subjective: NO COMPLAINTS Objective - Vital Signs/Intake and Output Vital Signs (last 24 hours): Temp Pulse Resp BP Pulse Ox 96.5 F L 89 16 112/34 L 100 12/12/16 11:35 12/12/16 11:35 12/12/16 11:35 12/12/16 11:35 12/12/16 11:35 Intake and Output: 12/12/16 12/12/16 06:59 18:59 Intake Total 550 Balance 550 - Medications Medications: Current Medications Citalopram Hydrobromide (Celexa) 10 mg PO [facility] Last Admin: 12/11/16 22:00 Dose: 10 mg Donepezil HCl (Aricept) 10 mg PO [facility] Last Admin: 12/11/16 22:00 Dose: 10 mg Home Med (Iron Polysaccharide [Ferrex-150]) 150 mg PO DAILY [facility] Home Med (Ursodiol [Marta]) 250 mg PO BID [facility] Hydromorphone HCl (Dilaudid) 0.5 mg IVP Q5M PRN PRN Reason: Pain, severe (8-10) Stop: 12/12/16 11:59 Vancomycin HCl 1 gm/ Sodium (Chloride) 250 mls @ 166.667 mls/hr IVPB Q12 [facility] Last Admin: 12/11/16 22:01 Dose: 166.667 mls/hr Piperacillin Sod/Tazobactam (Sod 3.375 gm/ Sodium Chloride) 100 mls @ 100 mls/ hr IVPB Q12 [facility] Last Admin: 12/11/16 20:38 Dose: 100 mls/hr Levothyroxine Sodium (Synthroid) 75 mcg PO DAILY@0630 [facility] Last Admin: 12/12/16 06:23 Dose: Not Given Lisinopril (Zestril) 2.5 mg PO DAILY [facility] Last Admin: 12/11/16 09:03 Dose: 2.5 mg Magnesium Hydroxide (Milk Of Magnesia) 30 ml PO Q72 PRN PRN Reason: Constipation Memantine (Namenda) 10 mg PO BID [facility] Last Admin: 12/11/16 18:11 Dose: 10 mg Multivitamins/Minerals (Therapeutic-M Tab) 1 tab PO DAILY [facility] Last Admin: 12/11/16 09:06 Dose: 1 tab Mupirocin (Bactroban Ointment) 1 applic TOP BID [facility] Last Admin: 12/11/16 18:09 Dose: 1 applic Pantoprazole Sodium (Protonix Ec Tab) 40 mg PO Q12H [facility] Last Admin: 12/12/16 06:23 Dose: Not Given Propranolol HCl (Inderal) 10 mg PO Q8H [facility] Last Admin: 12/12/16 02:00 Dose: Not Given - Labs Labs: 12/12/16 06:20 12/11/16 06:25 PT 12.5 Seconds (9.8-13.1) 12/12/16 06:20 INR 1.2 (0.9-1.2) 12/12/16 06:20 APTT 37.3 Seconds (25.6-37.1) H 12/12/16 06:20 - Respiratory Exam Respiratory Exam: Clear to Ausculation Bilateral - Cardiovascular Exam Cardiovascular Exam: REGULAR RHYTHM, +S1, +S2 Assessment and Plan - Assessment and Plan (Free Text) Assessment: S/P RIGHT TKR WITH WOUND OPENING HYPERTENSION Plan: CONTINUE PROPRANOLOL AND LISINOPRIL FOR OR TODAY
[2016-12-12 12:17] LABS: SYNOVIAL FLUID MONO/MACROPHAGE 4 % (0-0)
--- NOTE | 2016-12-12 12:30 | RAD ---
PROCEDURE: Right Knee Radiographs. HISTORY: s/p rev.right knee arthroplasty COMPARISON: Right knee 12/10/2016 FINDINGS: BONES: No suspicious interval lytic or blastic change. JOINTS: In the interval, postop changes seen at the anterior right knee soft tissues apparently status post revision of prior right knee arthroplasty with no interval fracture is, subluxation or dislocation identified this time. Distal right femoral and proximal right tibial prosthetic devices are appreciated. Increased radiodensity seen deep to the medial tibial prosthetic component suggestive of added orthopedic cement. Diffuse osteopenia suggests osteoporosis. Skin morris are identified at the anterior knee soft tissues. JOINT EFFUSION: None. OTHER FINDINGS: None. IMPRESSION: Postop changes seen the right knee as discussed above with increased orthopedic spine identified related to the medial proximal tibia deep to the tibial prosthetic component as per above. No interval fracture or dislocation.
[2016-12-12] MEDS: Multivitamin With Minerals Tab PO SCH ×2 (15:22→17:47)
[2016-12-12] MEDS: Piperacillin/Tazobact 3.375 GM in Sodium Chloride 0.9% 100 ML IVPB SCH ×2 (15:24→21:39)
--- NOTE | 2016-12-13 06:10 | CP.PCM.PN ---
Subjective - Date & Time of Evaluation Date of Evaluation: 12/12/16 Time of Evaluation: 17:00 - Subjective Subjective: Appears comfortable post op Objective - Vital Signs/Intake and Output Vital Signs (last 24 hours): Temp Pulse Resp BP Pulse Ox 98.7 F 76 18 101/58 L 95 12/13/16 05:00 12/13/16 05:00 12/13/16 05:00 12/13/16 05:00 12/13/16 05:00 Intake and Output: 12/12/16 12/13/16 18:59 06:59 Intake Total 850 Output Total 300 Balance 550 - Medications Medications: Current Medications Citalopram Hydrobromide (Celexa) 10 mg PO [facility] Last Admin: 12/12/16 21:38 Dose: 10 mg Donepezil HCl (Aricept) 10 mg PO [facility] Last Admin: 12/12/16 21:38 Dose: 10 mg Home Med (Iron Polysaccharide [Ferrex-150]) 150 mg PO DAILY [facility] Home Med (Ursodiol [Marta]) 250 mg PO BID [facility] Piperacillin Sod/Tazobactam (Sod 3.375 gm/ Sodium Chloride) 100 mls @ 100 mls/ hr IVPB Q12 [facility] Last Admin: 12/12/16 21:39 Dose: 100 mls/hr Levothyroxine Sodium (Synthroid) 75 mcg PO DAILY@0630 [facility] Last Admin: 12/12/16 06:23 Dose: Not Given Lisinopril (Zestril) 2.5 mg PO DAILY [facility] Last Admin: 12/12/16 15:24 Dose: Not Given Magnesium Hydroxide (Milk Of Magnesia) 30 ml PO Q72 PRN PRN Reason: Constipation Memantine (Namenda) 10 mg PO BID [facility] Last Admin: 12/12/16 17:47 Dose: 10 mg Multivitamins/Minerals (Therapeutic-M Tab) 1 tab PO DAILY [facility] Last Admin: 12/12/16 17:47 Dose: 1 tab Mupirocin (Bactroban Ointment) 1 applic TOP BID [facility] Last Admin: 12/12/16 16:34 Dose: Not Given Pantoprazole Sodium (Protonix Ec Tab) 40 mg PO Q12H [facility] Last Admin: 12/12/16 17:47 Dose: 40 mg Propranolol HCl (Inderal) 10 mg PO Q8H [facility] Last Admin: 12/13/16 02:00 Dose: Not Given Tramadol HCl (Ultram) 100 mg PO Q6 PRN PRN Reason: Pain, severe (8-10) Tramadol HCl (Ultram) 50 mg PO Q6 PRN PRN Reason: Pain, moderate (4-7) Last Admin: 12/12/16 17:46 Dose: 50 mg - Labs Labs: 12/12/16 06:20 12/11/16 06:25 PT 12.5 Seconds (9.8-13.1) 12/12/16 06:20 INR 1.2 (0.9-1.2) 12/12/16 06:20 APTT 37.3 Seconds (25.6-37.1) H 12/12/16 06:20 - Head Exam Head Exam: ATRAUMATIC - Eye Exam Eye Exam: Normal appearance - ENT Exam ENT Exam: Mucous Membranes Dry - Respiratory Exam Respiratory Exam: NORMAL BREATHING PATTERN - Cardiovascular Exam Cardiovascular Exam: +S1, +S2 - GI/Abdominal Exam GI & Abdominal Exam: Normal Bowel Sounds Assessment and Plan (1) Pancytopenia Assessment & Plan: s/p plt transfusion for orthopedic surgery cont. to monitor counts. Status: Acute
[2016-12-13] MEDS: Pantoprazole 40 mg EC Tab PO SCH (06:14)
[2016-12-13] MEDS: Levothyroxine 75 MCG TAB PO SCH (06:14)
[2016-12-13 07:25] LABS: HEMOGLOBIN 10.1 g/dL (12.0-16.0); MEAN CELL VOLUME 93.7 fl (81.0-99.0); MEAN CORPUSCULAR HEMOGLOBIN 31.7 pg (27.0-31.0); MEAN CORPUSCULAR HGB CONC 33.9 g/dL (33.0-37.0); RBC 3.17 Mil/uL (3.80-5.20); RED CELL DISTRIBUTION WIDTH 14.8 % (11.5-14.5); WHITE BLOOD COUNT 4.9 K/uL (4.8-10.8)
[2016-12-13 07:34] LABS: BLOOD UREA NITROGEN 10 mg/dl (7-17); CALCIUM 8.5 mg/dL (8.4-10.2); GFR AFRICAN-AMERICAN > 60; GFR NON-AFRICAN AMERICAN > 60
--- NOTE | 2016-12-13 07:49 | CP.PCM.PN ---
Subjective - Date & Time of Evaluation Date of Evaluation: 12/13/16 Time of Evaluation: 07:45 - Subjective Subjective: S- pt with post op incisional discomfort Objective - Vital Signs/Intake and Output Vital Signs (last 24 hours): Temp Pulse Resp BP Pulse Ox 98.8 F 76 18 93/57 L 95 12/13/16 07:34 12/13/16 07:34 12/13/16 07:34 12/13/16 07:34 12/13/16 07:34 - Medications Medications: Current Medications Citalopram Hydrobromide (Celexa) 10 mg PO HS [facility] Last Admin: 12/12/16 21:38 Dose: 10 mg Donepezil HCl (Aricept) 10 mg PO [facility] Last Admin: 12/12/16 21:38 Dose: 10 mg Home Med (Iron Polysaccharide [Ferrex-150]) 150 mg PO DAILY [facility] Home Med (Ursodiol [Marta]) 250 mg PO BID [facility] Piperacillin Sod/Tazobactam (Sod 3.375 gm/ Sodium Chloride) 100 mls @ 100 mls/ hr IVPB Q12 [facility] Last Admin: 12/12/16 21:39 Dose: 100 mls/hr Levothyroxine Sodium (Synthroid) 75 mcg PO DAILY@0630 [facility] Last Admin: 12/13/16 06:14 Dose: 75 mcg Lisinopril (Zestril) 2.5 mg PO DAILY [facility] Last Admin: 12/12/16 15:24 Dose: Not Given Magnesium Hydroxide (Milk Of Magnesia) 30 ml PO Q72 PRN PRN Reason: Constipation Memantine (Namenda) 10 mg PO BID [facility] Last Admin: 12/12/16 17:47 Dose: 10 mg Multivitamins/Minerals (Therapeutic-M Tab) 1 tab PO DAILY [facility] Last Admin: 12/12/16 17:47 Dose: 1 tab Mupirocin (Bactroban Ointment) 1 applic TOP BID [facility] Last Admin: 12/12/16 16:34 Dose: Not Given Pantoprazole Sodium (Protonix Ec Tab) 40 mg PO Q12H [facility] Last Admin: 12/13/16 06:14 Dose: 40 mg Propranolol HCl (Inderal) 10 mg PO Q8H [facility] Last Admin: 12/13/16 02:00 Dose: Not Given Tramadol HCl (Ultram) 100 mg PO Q6 PRN PRN Reason: Pain, severe (8-10) Tramadol HCl (Ultram) 50 mg PO Q6 PRN PRN Reason: Pain, moderate (4-7) Last Admin: 12/12/16 17:46 Dose: 50 mg - Labs Labs: 12/12/16 06:20 12/11/16 06:25 PT 12.5 Seconds (9.8-13.1) 12/12/16 06:20 INR 1.2 (0.9-1.2) 12/12/16 06:20 APTT 37.3 Seconds (25.6-37.1) H 12/12/16 06:20 - Additional Findings Additional findings: Objective systemic wnl Musculoskeletal stance/gait- defrred dressing/immobilizer dry and intact imp - post op Xrays reveal excellent [id number] pof construct Assessment and Plan - Assessment and Plan (Free Text) Assessment: A- post op xrays reveal excellent positon ofconstruct P- full weight bearing? CPM/ orthopedically stable
--- NOTE | 2016-12-13 08:50 | PCM.OP ---
Operative Report - Operative Report Date of Surgery/Procedure: 12/12/16 Time of Surgery/Procedure: 09:10 (Time in room 8:05/anaesthesia induction time 8 :05) Surgeon: Tin Housefellow: BERT Cruz Anesthesia/Sedation: GETA/ regional- DR Cricket Robb Pre-Operative Diagnosis: Patella fx dislocation s/p R TKR. flexion/extension imbalance causing contracture Post-Operative Diagnosis: same. POSTERIOR CAPSULAR CONTRACTURE Indication for Surgery: OPEN KNEE JOINT WITH FX DISLOCATION R PATELLA COMPONENT Operative Findings: ABOVE Procedure/Operation Description: Revisioin TKR ( 2components). Open treatment patella fx. posterior capsular release. lateral patella release. excisison skin/subcutaneous tissu/muscle. operative procedure. After having obtained informed consent after having identified side site and procedure garcia critical pause/ time out, after the satisfactory ondcution of the anaesthetic by DR Robb, the R lower ext is prepped and draped in the usual fashion for lower ext surgery. The patient had presented with an open knee joint and with fracture dislocation of the patellar component. This was clearly of long standing. The patient presented with a flexion contracture of long duration. I had operated this pot in 2005/. With the right lower extremity prepped and free draped the right lower extremity is exsanguinated using a 6 inch Esmarch . The tourniquet which had been applied is inflated to 350 mmhg. An incision is described 2 fb above the original incision and 2 fb below. skin, subcutaneous tissue and muscle is 3excised. patella component ifs found to be fractured and dislocated. The patella is relocated. there is found to be a flexion contracture with apostyerior capsular contracture. The patella is relocated, the open fracture is treated with partial excision. The patella component is removed with oscillating saw. The patella is removed and reamed. The tibial poly is removed. the posterior capsulae is identiifed and found to be contracted. The posterior capsule is excise,d and released. trialing is accomplished, and the flexion extension gap is balanced. The free hand patella cut is accomplished. patella is reamed to 29 mm. the 12 mm poly is inserted flexion / extension is balanced and found to be excellewnt. Patella is cemented lateral opatella release is performed/ closure is in layers #2 quill O quilkl 2-0 vicryl and morris for skin René Toney compression dressing is applied with knee imjmobilizer post op Xrays satisfatory End op note for Rachel Caraballo Estimated Blood Loss: 85cc Blood Replaced: None Sponge/Instrument Count: correct Drains: none Complications: none Specimen: patella component/tibial poly Discharge & Condition: stable
--- NOTE | 2016-12-13 09:24 | CP.PCM.PN ---
Objective - Vital Signs/Intake and Output Vital Signs (last 24 hours): Temp Pulse Resp BP Pulse Ox 98.8 F 76 18 93/57 L 95 12/13/16 07:34 12/13/16 07:34 12/13/16 07:34 12/13/16 07:34 12/13/16 07:34 - Medications Medications: Current Medications Citalopram Hydrobromide (Celexa) 10 mg PO [facility] Last Admin: 12/12/16 21:38 Dose: 10 mg Donepezil HCl (Aricept) 10 mg PO HS [facility] Last Admin: 12/12/16 21:38 Dose: 10 mg Home Med (Iron Polysaccharide [Ferrex-150]) 150 mg PO DAILY [facility] Home Med (Ursodiol [Marta]) 250 mg PO BID [facility] Piperacillin Sod/Tazobactam (Sod 3.375 gm/ Sodium Chloride) 100 mls @ 100 mls/ hr IVPB Q12 [facility] Last Admin: 12/12/16 21:39 Dose: 100 mls/hr Levothyroxine Sodium (Synthroid) 75 mcg PO DAILY@0630 [facility] Last Admin: 12/13/16 06:14 Dose: 75 mcg Lisinopril (Zestril) 2.5 mg PO DAILY [facility] Last Admin: 12/12/16 15:24 Dose: Not Given Magnesium Hydroxide (Milk Of Magnesia) 30 ml PO Q72 PRN PRN Reason: Constipation Memantine (Namenda) 10 mg PO BID [facility] Last Admin: 12/12/16 17:47 Dose: 10 mg Multivitamins/Minerals (Therapeutic-M Tab) 1 tab PO DAILY [facility] Last Admin: 12/12/16 17:47 Dose: 1 tab Mupirocin (Bactroban Ointment) 1 applic TOP BID [facility] Last Admin: 12/12/16 16:34 Dose: Not Given Pantoprazole Sodium (Protonix Ec Tab) 40 mg PO Q12H [facility] Last Admin: 12/13/16 06:14 Dose: 40 mg Propranolol HCl (Inderal) 10 mg PO Q8H [facility] Last Admin: 12/13/16 02:00 Dose: Not Given Tramadol HCl (Ultram) 100 mg PO Q6 PRN PRN Reason: Pain, severe (8-10) Tramadol HCl (Ultram) 50 mg PO Q6 PRN PRN Reason: Pain, moderate (4-7) Last Admin: 12/12/16 17:46 Dose: 50 mg - Labs Labs: 12/13/16 06:50 12/13/16 06:50 PT 12.5 Seconds (9.8-13.1) 12/12/16 06:20 INR 1.2 (0.9-1.2) 12/12/16 06:20 APTT 37.3 Seconds (25.6-37.1) H 12/12/16 06:20 Assessment and Plan - Assessment and Plan (Free Text) Assessment: 86 yo female with history of CHF, DM2, Hypothyroidism, HLD, Dementia, HTN, Abdominal Mass, Malignant Ovarian Tumor and Liver Cirrhosis with bleeding esophageal varices last year brought in here as per recommendation from Dr Castle for possible surgical procedure on the right knee which had started leaking serous fluid a year ago later forming a crater exposing a white prosthetic material on the right knee. 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 Patient had been non-ambulatory since then. 1. Open wound of right knee s/p knee revision arthroplasty orthopedist Dr. Castle following Patient was cleared for surgery by Dr. Monaco Follow up blood culture and wound culture ID consult with Dr Saeed appreciated continue Zosyn 3.375 gm IV q 6hrs and Vancomycin 1gm IV q 12hrs. Start PT and DVt prophylaxis as per ortho recommendations 2. Liver cirrhosis continue Propranolol 10mg PO q 8hrs. noted to have history of portal HTN and esophageal varices 3. CHF (congestive heart failure)-- unclear if patient has CHF ?-- most likely no CHF since EF is preserved ECHO: preserved LV function Dr Monaco on consult, cardiac clearance approved 4. DM2 ruled out BS within normal range without medication HgA1C: 5.1 5. HTN (hypertension) BP controlled. continue Lisinopril plus Propranolol (given for portal HTN) Hold BP medfs post oip due to hypotension Hydrate IVF 6. 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
[2016-12-13] MEDS: Piperacillin/Tazobact 3.375 GM in Sodium Chloride 0.9% 100 ML IVPB SCH (09:25)
[2016-12-13] MEDS: Multivitamin With Minerals Tab PO SCH (09:32)
--- NOTE | 2016-12-13 11:00 | US ---
HISTORY: liver cirrhosis and abdominal mass (by history) COMPARISON: None. TECHNIQUE: Sonographic evaluation of the abdomen. FINDINGS: LIVER: Measures 13.7 cm. Variable echogenicity of the liver parenchyma. No mass. No intrahepatic bile duct dilatation. GALLBLADDER: Nonvisualized. COMMON BILE DUCT: Nonvisualized. PANCREAS: Obscured by overlying bowel gas. Non diagnostic assessment of the pancreas RIGHT KIDNEY: Measures 4.9 x 9.7cm. Normal echogenicity. No calculus, mass, or hydronephrosis. LEFT KIDNEY: Measures 4.7 x 8.9cm. Normal echogenicity. No calculus, mass, or hydronephrosis.Incidental finding(s): Cyst lower pole 3.1 x 3.0 cm SPLEEN: Normal in size and contour. No mass. AORTA: No aneurysmal dilatation. IVC: Unremarkable. OTHER FINDINGS: None. IMPRESSION: No significant or acute findings to account for/ related to the clinical presentation. Limitations of the current examination: Nonvisualization of the gallbladder, common bile duct and pancreas.
--- NOTE | 2016-12-13 11:03 | CP.PCM.DIS ---
Provider - Provider Date of Admission: 12/10/16 16:06 Attending physician: Sarwat Candelaria MD Consults: ortho consult Hematology consult cardiology consult Id consult Time Spent in preparation of Discharge (in minutes): 15 Hospital Course - Lab Results Lab Results: Micro Results 12/12/16 13:45 Knee - Right Gram Stain - Final 12/12/16 13:45 Knee - Right Gram Stain - Final 12/12/16 13:45 Knee - Right Gram Stain - Final 12/12/16 13:45 Knee - Right Gram Stain - Final 12/12/16 13:45 Knee - Right Gram Stain - Final 12/12/16 13:45 Knee - Right Gram Stain - Final 12/12/16 13:45 Knee - Right Gram Stain - Final 12/12/16 13:45 Knee - Right Gram Stain - Final 12/12/16 10:18 Synovial Fluid Gram Stain - Final 12/12/16 09:41 Synovial Fluid Gram Stain - Final Most Recent Lab Values WBC 4.9 K/uL (4.8-10.8) 12/13/16 06:50 RBC 3.17 Mil/uL (3.80-5.20) L 12/13/16 06:50 Hgb 10.1 g/dL (12.0-16.0) L D 12/13/16 06:50 Hct 29.7 % (34.0-47.0) L 12/13/16 06:50 MCV 93.7 fl (81.0-99.0) 12/13/16 06:50 MCH 31.7 pg (27.0-31.0) H 12/13/16 06:50 MCHC 33.9 g/dL (33.0-37.0) 12/13/16 06:50 RDW 14.8 % (11.5-14.5) H 12/13/16 06:50 Plt Count 93 K/uL (130-400) L D 12/13/16 06:50 MPV 9.0 fl (7.2-11.7) 12/11/16 06:25 Neut % (Auto) 48.2 % (50.0-75.0) L 12/11/16 06:25 Lymph % (Auto) 32.8 % (20.0-40.0) 12/11/16 06:25 Ralls % (Auto) 12.1 % (0.0-10.0) H 12/11/16 06:25 Eos % (Auto) 5.9 % (0.0-4.0) H 12/11/16 06:25 Baso % (Auto) 1.0 % (0.0-2.0) 12/11/16 06:25 Neut # 1.7 K/uL (1.8-7.0) L 12/11/16 06:25 Lymph # 1.1 K/uL (1.0-4.3) 12/11/16 06:25 Ralls # 0.4 K/uL (0.0-0.8) 12/11/16 06:25 Eos # 0.2 K/uL (0.0-0.7) 12/11/16 06:25 Baso # 0.0 K/uL (0.0-0.2) 12/11/16 06:25 PT 12.5 Seconds (9.8-13.1) 12/12/16 06:20 INR 1.2 (0.9-1.2) 12/12/16 06:20 APTT 37.3 Seconds (25.6-37.1) H 12/12/16 06:20 Sodium 139 mmol/l (132-148) 12/13/16 06:50 Potassium 3.5 MMOL/L (3.6-5.0) L 12/13/16 06:50 Chloride 107 mmol/L (98-107) 12/13/16 06:50 Carbon Dioxide 25 mmol/L (22-30) 12/13/16 06:50 Anion Gap 11 (10-20) 12/13/16 06:50 BUN 10 mg/dl (7-17) 12/13/16 06:50 Creatinine 0.8 mg/dL (0.7-1.2) 12/13/16 06:50 Est GFR ( Amer) > 60 12/13/16 06:50 Est GFR (Non-Af Amer) > 60 12/13/16 06:50 POC Glucose (mg/dL) 111 mg/dL (65-110) H 12/13/16 05:05 Random Glucose 110 mg/dL (65-105) H 12/13/16 06:50 Hemoglobin A1c 5.1 % (4.2-6.5) 12/11/16 15:54 Calcium 8.5 mg/dL (8.4-10.2) 12/13/16 06:50 TSH 3rd Generation 1.68 mIU/ML (0.46-4.68) 12/13/16 06:50 Urine Color Yellow (YELLOW) 12/11/16 21:30 Urine Clarity Slighty-cloudy (Clear) 12/11/16 21:30 Urine pH 7.0 (5.0-8.0) 12/11/16 21:30 Ur Specific [place] 1.010 (1.003-1.030) 12/11/16 21:30 Urine Protein Negative mg/dL (NEGATIVE) 12/11/16 21:30 Urine Glucose (UA) Neg mg/dL (Normal) 12/11/16 21:30 Urine Ketones Negative mg/dL (NEGATIVE) 12/11/16 21:30 Urine Blood Negative (NEGATIVE) 12/11/16 21:30 Urine Nitrate Negative (NEGATIVE) 12/11/16 21:30 Urine Bilirubin Negative (NEGATIVE) 12/11/16 21:30 Urine Urobilinogen 0.2-1.0 mg/dL (0.2-1.0) 12/11/16 21:30 Ur Leukocyte Esterase Large Alethea/uL (Negative) 12/11/16 21:30 Urine RBC (Auto) 2 /hpf (0-3) 12/11/16 21:30 Urine Microscopic WBC 114 /hpf (0-5) H 12/11/16 21:30 Ur Squamous Epith Cells 1 /hpf (0-5) 12/11/16 21:30 Urine Bacteria Rare (<OCC) 12/11/16 21:30 Fluid Type Synovial fluid 12/12/16 10:20 Synovial WBC 7.0 /mm3 (0.0-150.0) 12/12/16 10:20 Synovial RBC 156.0 /mm3 (0.0-0.0) H 12/12/16 10:20 Synovial Neutrophils 4.0 % (0-0) H 12/12/16 10:20 Synovial Lymphocytes 1.0 % (0-0) H 12/12/16 10:20 Synov Monos/Macrophage TEST NOT PERFORMED 12/12/16 10:20 Synovial Fluid Comment None 12/12/16 10:20 Vancomycin Trough 23.9 ug/mL (5.0-10.0) H 12/12/16 06:20 Blood Type O POSITIVE 12/10/16 16:40 Antibody Screen Negative 12/10/16 16:40 Crossmatch IS Only See Detail 12/10/16 16:40 BBK History Checked Patient has bt 12/10/16 16:40 - Hospital Course Hospital Course: 86 yo female with history of CHF, DM2, Hypothyroidism, HLD, Dementia, HTN, Abdominal Mass, Malignant Ovarian Tumor and Liver Cirrhosis with bleeding esophageal varices last year brought in here as per recommendation from Dr Castle for possible surgical procedure on the right knee which had started leaking serous fluid a year ago later forming a crater exposing a white prosthetic material on the right knee. 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 Patient has been non-ambulatory since then.Patient was admitted , ortho and ID was consulted . She was started empirically on Vanco and Zosyn Iv.She underwent knee revision arthroplasty after cardiology and hematology clearance. Post op patient doing well, pain is controlled . PT consulted and recommended continuation of PT at [facility]. Patient cleared from ortho for discharge.Will d/c patient to [facility]. Follow up with Dr. Garcia in 1 week.No anticoagulation due to thrombocytopenia. Discussed with ID Dr. Saeed and recommended switching to PO Zyvox for 4 weeks 1. Open wound of right knee s/p knee revision arthroplasty orthopedist Dr. Castle was consulted and patient underwent revision of right knee Patient was cleared for surgery by Dr. Monaco cultures with no growth ID consult with Dr Saeed appreciated received Zosyn 3.375 gm IV q 6hrs and Vancomycin 1gm IV q 12hrs. will continue Zyvox po for 4 weeks PT as tolerated in [facility] with full weight bearing to RLE as per ortho no anticoagulation due to thrombocytopenia 2. Liver cirrhosis continue Propranolol 10mg PO q 8hrs. noted to have history of portal HTN and esophageal varices 3. CHF (congestive heart failure)-- unclear if patient has CHF ?-- most likely no CHF since EF is preserved ECHO: preserved LV function Dr Monaco on consult, cardiac clearance approved 4. DM2 ruled out BS within normal range without medication HgA1C: 5.1 5. HTN (hypertension) BP controlled. continue Lisinopril plus Propranolol (given for portal HTN) Held BP meds post op due to hypotension Hydrated with IVF 6. Dementia on Namenda and Aricept 7.Thrombocytopenia platelet:93 k hematology consult with Dr Gerard APPRECIATED given 1 bag of platelet preop for the surgical procedure Need to follow up Plt count once discharge Qweek while taking Zyvox Follow up with Here PMD 8 .DVT prophylaxis avoid anti coagulant because of history of GI bleed and esophageal varices Discharge Exam - Head Exam Head Exam: ATRAUMATIC, NORMOCEPHALIC - Eye Exam Eye Exam: EOMI, PERRL Pupil Exam: NORMAL ACCOMODATION - ENT Exam ENT Exam: Mucous Membranes Moist, Normal Exam - Neck Exam Neck exam: Full Rom, Normal Inspection - Respiratory Exam Respiratory Exam: Clear to PA & Lateral, NORMAL BREATHING PATTERN. absent: Rhonchi, Wheezes, Respiratory Distress - Cardiovascular Exam Cardiovascular Exam: REGULAR RHYTHM, RRR, +S1, +S2. absent: JVD - GI/Abdominal Exam GI & Abdominal Exam: Normal Bowel Sounds, Soft. absent: Distended, Guarding, Rebound, Tenderness - Rectal Exam Rectal Exam: Deferred - Extremities Exam Extremities exam: pedal pulses present Additional comments: right knee dressing in place - Neurological Exam Neurological exam: Alert Additional comments: awake demented - Psychiatric Exam Psychiatric exam: Flat Affect - Skin Skin Exam: Dry, Normal Color, Warm Discharge Plan - Discharge Medications Prescriptions: Linezolid [Zyvox] 600 mg PO Q12 #60 tab - Follow Up Plan Condition: STABLE Disposition: TRANSF TO SNF Additional Instructions: Continue Zyvox for 4 weeks Full weight bearing to RLE Follow up with Dr. Castle in 1 week Referrals: Prince Castle III, MD [Family Provider] -
--- NOTE | 2016-12-13 11:08 | CP.PCM.PN ---
Subjective - Date & Time of Evaluation Date of Evaluation: 12/13/16 Time of Evaluation: 08:00 - Subjective Subjective: NO COMPLAINTS Objective - Vital Signs/Intake and Output Vital Signs (last 24 hours): Temp Pulse Resp BP Pulse Ox 98.8 F 76 18 93/57 L 95 12/13/16 07:34 12/13/16 09:29 12/13/16 07:34 12/13/16 09:29 12/13/16 07:34 - Medications Medications: Current Medications Citalopram Hydrobromide (Celexa) 10 mg PO [facility] Last Admin: 12/12/16 21:38 Dose: 10 mg Donepezil HCl (Aricept) 10 mg PO [facility] Last Admin: 12/12/16 21:38 Dose: 10 mg Home Med (Iron Polysaccharide [Ferrex-150]) 150 mg PO DAILY [facility] Home Med (Ursodiol [Marta]) 250 mg PO BID [facility] Piperacillin Sod/Tazobactam (Sod 3.375 gm/ Sodium Chloride) 100 mls @ 100 mls/ hr IVPB Q12 [facility] Last Admin: 12/13/16 09:25 Dose: 100 mls/hr Levothyroxine Sodium (Synthroid) 75 mcg PO DAILY@0630 [facility] Last Admin: 12/13/16 06:14 Dose: 75 mcg Lisinopril (Zestril) 2.5 mg PO DAILY [facility] Last Admin: 12/13/16 09:29 Dose: Not Given Magnesium Hydroxide (Milk Of Magnesia) 30 ml PO Q72 PRN PRN Reason: Constipation Memantine (Namenda) 10 mg PO BID [facility] Last Admin: 12/13/16 09:27 Dose: 10 mg Multivitamins/Minerals (Therapeutic-M Tab) 1 tab PO DAILY [facility] Last Admin: 12/13/16 09:32 Dose: 1 tab Pantoprazole Sodium (Protonix Ec Tab) 40 mg PO Q12H [facility] Last Admin: 12/13/16 06:14 Dose: 40 mg Propranolol HCl (Inderal) 10 mg PO Q8H [facility] Last Admin: 12/13/16 09:27 Dose: Not Given Tramadol HCl (Ultram) 100 mg PO Q6 PRN PRN Reason: Pain, severe (8-10) Last Admin: 12/13/16 08:20 Dose: 100 mg Tramadol HCl (Ultram) 50 mg PO Q6 PRN PRN Reason: Pain, moderate (4-7) Last Admin: 12/12/16 17:46 Dose: 50 mg - Labs Labs: 12/13/16 06:50 12/13/16 06:50 PT 12.5 Seconds (9.8-13.1) 12/12/16 06:20 INR 1.2 (0.9-1.2) 12/12/16 06:20 APTT 37.3 Seconds (25.6-37.1) H 12/12/16 06:20 - Respiratory Exam Respiratory Exam: Clear to Ausculation Bilateral - Cardiovascular Exam Cardiovascular Exam: REGULAR RHYTHM, +S1, +S2 - Additional Findings Additional findings: ORTHOPEDIC OPERATIVE REPORT REVIEWED WITH PATELLA FX REPAIR AND REMOVAL OF DEEP HARDWARE Assessment and Plan - Assessment and Plan (Free Text) Assessment: REPAIR OF RIGHT TKR HYPERTENSION HYPERLIPIDEMIA CIRRHOSIS OF THE LIVER Plan: CONTINUE ANTIBIOTICS, INDERAL AND LISINOPRIL PATIENT TO BE TRANSFERRED TO SNF
--- NOTE | 2016-12-13 13:51 | CP.PCM.PN ---
Subjective - Date & Time of Evaluation Date of Evaluation: 12/13/16 Time of Evaluation: 10:30 - Subjective Subjective: No complaints, family at bedside Objective - Vital Signs/Intake and Output Vital Signs (last 24 hours): Temp Pulse Resp BP Pulse Ox 98.8 F 76 18 93/57 L 95 12/13/16 07:34 12/13/16 09:29 12/13/16 07:34 12/13/16 09:29 12/13/16 07:34 - Medications Medications: Current Medications Citalopram Hydrobromide (Celexa) [address] [facility] Last Admin: 12/12/16 21:38 Dose: 10 mg Donepezil HCl (Aricept) [address] [facility] Last Admin: 12/12/16 21:38 Dose: 10 mg Home Med (Iron Polysaccharide [Ferrex-150]) 150 mg PO DAILY [facility] Home Med (Ursodiol [Marta]) 250 mg PO BID [facility] Piperacillin Sod/Tazobactam (Sod 3.375 gm/ Sodium Chloride) 100 mls @ 100 mls/ hr IVPB Q12 [facility] Last Admin: 12/13/16 09:25 Dose: 100 mls/hr Levothyroxine Sodium (Synthroid) 75 mcg PO DAILY@0630 [facility] Last Admin: 12/13/16 06:14 Dose: 75 mcg Lisinopril (Zestril) 2.5 mg PO DAILY [facility] Last Admin: 12/13/16 09:29 Dose: Not Given Magnesium Hydroxide (Milk Of Magnesia) 30 ml PO Q72 PRN PRN Reason: Constipation Memantine (Namenda) 10 mg PO BID [facility] Last Admin: 12/13/16 09:27 Dose: 10 mg Multivitamins/Minerals (Therapeutic-M Tab) 1 tab PO DAILY [facility] Last Admin: 12/13/16 09:32 Dose: 1 tab Pantoprazole Sodium (Protonix Ec Tab) 40 mg PO Q12H [facility] Last Admin: 12/13/16 06:14 Dose: 40 mg Propranolol HCl (Inderal) 10 mg PO Q8H [facility] Last Admin: 12/13/16 09:27 Dose: Not Given Tramadol HCl (Ultram) 100 mg PO Q6 PRN PRN Reason: Pain, severe (8-10) Last Admin: 12/13/16 08:20 Dose: 100 mg Tramadol HCl (Ultram) 50 mg PO Q6 PRN PRN Reason: Pain, moderate (4-7) Last Admin: 12/12/16 17:46 Dose: 50 mg - Labs Labs: 12/13/16 06:50 12/13/16 06:50 PT 12.5 Seconds (9.8-13.1) 12/12/16 06:20 INR 1.2 (0.9-1.2) 12/12/16 06:20 APTT 37.3 Seconds (25.6-37.1) H 12/12/16 06:20 - Head Exam Head Exam: ATRAUMATIC - Eye Exam Eye Exam: Normal appearance - ENT Exam ENT Exam: Mucous Membranes Dry - Respiratory Exam Respiratory Exam: NORMAL BREATHING PATTERN - Cardiovascular Exam Cardiovascular Exam: +S1, +S2 - GI/Abdominal Exam GI & Abdominal Exam: Normal Bowel Sounds - Extremities Exam Additional comments: right leg brace Assessment and Plan (1) Pancytopenia Assessment & Plan: mild s/p plt transfusion preop outpatient count check Status: Acute
[2016-12-13 16:18] VITALS: BP 134/76; PULSE 68; RESP 20; TEMP 98.5; O2SAT 98
== END 2016-12-13 17:56 | DRG 467 ==
LOC: H.ER 15:16 → H.ERHOLD 16:06 → H.MEDSURG1 18:39
PROC: 6A550Z2 Pheresis of Platelets, Single (ICD-10-PCS; 2016-12-11)
PROC: 3E0T3CZ (ICD-10-PCS; 2016-12-12)
PROC: 3E0T33Z Introduction of Anti-inflammatory into Peripheral Nerves and Plexi, Percutaneous Approach (ICD-10-PCS; 2016-12-12)
PROC: 0SPC0JC Removal of Synthetic Substitute from Right Knee Joint, Patellar Surface, Open Approach (ICD-10-PCS; principal; 2016-12-12 08:00)
PROC: 0SRC0J9 Replacement of Right Knee Joint with Synthetic Substitute, Cemented, Open Approach (ICD-10-PCS; 2016-12-12 08:00)
DX: T84.022A Instability of internal right knee prosthesis, initial encounter (principal); D61.818 Other pancytopenia; D68.9 Coagulation defect, unspecified; M96.69 Fracture of other bone following insertion of orthopedic implant, joint prosthesis, or bone plate; K76.6 Portal hypertension; I85.10 Secondary esophageal varices without bleeding; F03.90 Unspecified dementia, unspecified severity, without behavioral disturbance, psychotic disturbance, mood disturbance, and anxiety; S81.001A Unspecified open wound, right knee, initial encounter; M24.561 Contracture, right knee; K74.69 Other cirrhosis of liver; E03.9 Hypothyroidism, unspecified; I12.9 Hypertensive chronic kidney disease with stage 1 through stage 4 chronic kidney disease, or unspecified chronic kidney disease; N18.9 Chronic kidney disease, unspecified; Z96.651 Presence of right artificial knee joint; E78.5 Hyperlipidemia, unspecified; E78.00 Pure hypercholesterolemia, unspecified; Y79.2 Prosthetic and other implants, materials and accessory orthopedic devices associated with adverse incidents; Z85.43 Personal history of malignant neoplasm of ovary; Z74.01 Bed confinement status; Z87.01 Personal history of pneumonia (recurrent); Z87.440 Personal history of urinary (tract) infections; Y92.129 Unspecified place in nursing home as the place of occurrence of the external cause

== ENCOUNTER 2017-02-16 14:17 | Inpatient (IN) | payer MEDICARE, MEDICAID ==
--- NOTE | 2017-02-16 20:05 | CP.PCM.HP ---
History of Present Illness - History of Present Illness History of Present Illness: 86 yo female with history of CHF, Hypothyroidism, HLD, Dementia, HTN, Abdominal Mass, Malignant Ovarian Tumor and Liver Cirrhosis had revision of right TKR [address] Castle was admitted last night to [facility] after her knee was noted to be swollen, reddened and slightly oozing some pus in [place]. She also continued to complain of pain on the right knee but denied having fever or chills. As per history, her right knee was first operated for right TKR 20 yrs ago and was brought in to [facility] for revision because the knee has a crater exposing the prosthetic material and oozing serou-sanguinous fluid. 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 Present on Admission - Present on Admission Any Indicators Present on Admission: No History of DVT/PE: No History of Uncontrolled Diabetes: No Urinary Catheter: No Decubitus Ulcer Present: No Review of Systems - Review of Systems All systems: reviewed and no additional remarkable complaints except (aside from those mentioned above, 12 point system review were negative by me) Past Patient History - Tetanus Immunizations Tetanus Immunization: Unknown - Past Medical History & Family History Past Medical History?: Yes - Past Social History Smoking Status: Unknown If Ever Smoked Alcohol: None Drugs: Denies Home Situation {Lives}: Prison - CARDIAC Hx Cardiac Disorders: Yes Hx Congestive Heart Failure: Yes Hx Hypercholesterolemia: Yes Hx Hypertension: Yes - PULMONARY Hx Respiratory Disorders: Yes Hx Pneumonia: Yes - NEUROLOGICAL Hx Dementia: Yes - RENAL Hx Chronic Kidney Disease: Yes - ENDOCRINE/METABOLIC Hx Endocrine Disorders: Yes Hx Diabetes Mellitus Type 2: Yes Hx Hypothyroidism: Yes - HEMATOLOGICAL/ONCOLOGICAL Hx Blood Disorders: Yes - MUSCULOSKELETAL/RHEUMATOLOGICAL Hx Musculoskeletal Disorders: Yes Hx Arthritis: Yes Hx Falls: (unknown) - GASTROINTESTINAL Hx Liver Failure: Yes (liver cirrhosis) Other/Comment: gi hemorrhage/abdominal mass /bleeding esophageal varices - GENITOURINARY/GYNECOLOGICAL Hx Genitourinary Disorders: Yes Hx Ovarian Cancer: Yes (malignant ovarian tumor) Hx Urinary Tract Infection: Yes - PSYCHIATRIC Hx Psychophysiologic Disorder: Yes Hx Substance Use: (unknown) - SURGICAL HISTORY Hx Surgeries: Yes Hx Orthopedic Surgery: Yes (rt knee replacement 20 yrs ago) - ANESTHESIA Hx Anesthesia: Yes Hx Anesthesia Reactions: No Meds Allergies/Adverse Reactions: Allergies Allergy/AdvReac Type Severity Reaction Status Date / Time No Known Allergies Allergy Verified 05/23/16 11:21 Physical Exam - Constitutional Appears: No Acute Distress - Head Exam Head Exam: ATRAUMATIC - Eye Exam Eye Exam: absent: Scleral icterus - ENT Exam ENT Exam: Mucous Membranes Moist - Neck Exam Neck exam: Negative for: Meningismus - Respiratory Exam Respiratory Exam: absent: Rhonchi, Wheezes, Respiratory Distress - Cardiovascular Exam Cardiovascular Exam: REGULAR RHYTHM, +S1, +S2 - GI/Abdominal Exam GI & Abdominal Exam: Soft. absent: Tenderness - Rectal Exam Rectal Exam: Deferred - Extremities Exam Extremities exam: Positive for: joint swelling (right knee with limited ROM) - Neurological Exam Neurological exam: Alert - Psychiatric Exam Psychiatric exam: Normal Affect - Skin Skin Exam: Dry, Intact Assessment & Plan (1) Status post revision of total replacement of right knee Status: Acute Comment: surgical wound infected. blood and wound culture. continue Vancomycin 1gm IV q 12hrs. continue Maxipime 2gm IV q 8hrs. Ortho consult with Dr Castle. ID consult with Dr Saeed (2) Liver cirrhosis Status: Chronic Comment: continue Propranolol 10mg PO q 8hrs (3) CHF (congestive heart failure) Status: Suspected Comment: cardiology consult with Dr Monaco. ECHO has preserved LV function. unclear if patient really have CHF (4) HTN (hypertension) Status: Chronic Comment: BP stable. continue Propranolol and Lisinopril (5) Dementia Status: Chronic Comment: on Namenda and Aricept (6) Thrombocytopenia Status: Acute Comment: probably secondary to malignancy and liver failure. follow up hematology consult with Dr Gerard. repeat CBC in am
[2017-02-16 20:22] VITALS: BMI 27.6
[2017-02-16] MEDS: Oxycodone/Acetaminophen 5/325 mg Tab PO PRN (21:23)
[2017-02-17 06:44] LABS: BASO % 0.8 % (0.0-2.0); EOS # 0.3 K/uL (0.0-0.7); EOS % 6.3 % (0.0-4.0); LYMPH # 1.4 K/uL (1.0-4.3); LYMPH % 34.3 % (20.0-40.0); MEAN CELL VOLUME 99.8 fl (81.0-99.0); MEAN CORPUSCULAR HEMOGLOBIN 31.8 pg (27.0-31.0); MEAN CORPUSCULAR HGB CONC 31.8 g/dL (33.0-37.0); MEAN PLATELET VOLUME 9.4 fl (7.2-11.7); MONO # 0.4 K/uL (0.0-0.8); MONO % 10.9 % (0.0-10.0); NEUT # 1.9 K/uL (1.8-7.0); NEUT % 47.7 % (50.0-75.0); NRBC % 0.2 % (0.0-0.0); RED CELL DISTRIBUTION WIDTH 17.8 % (11.5-14.5)
[2017-02-17 06:48] LABS: ALB/GLOB RATIO 0.8 (1.0-2.1); ALKALINE PHOSPHATASE 180 U/L (38-126); ALT/SGPT 39 U/L (9-52); AST/SGOT 47 U/L (14-36); BILIRUBIN,TOTAL 0.5 mg/dl (0.2-1.3); BLOOD UREA NITROGEN 13 mg/dl (7-17); CALCIUM 8.4 mg/dL (8.4-10.2); CARBON DIOXIDE 26 mmol/L (22-30); CHLORIDE 109 mmol/L (98-107); GFR AFRICAN-AMERICAN > 60; GLUCOSE,RANDOM 82 mg/dL (65-105); POTASSIUM 3.9 MMOL/L (3.6-5.0); SODIUM 140 mmol/l (132-148); TOTAL PROTEIN 6.1 G/DL (6.3-8.2)
[2017-02-17] MEDS ORDERED: Influenza Vaccine 18yr & older 0.5 ML/45 MCG SYR IM ONE (07:26)
--- NOTE | 2017-02-17 08:46 | CP.PCM.CON ---
History of Present Illness - History of Present Illness History of Present Illness: Orthopedic consultation requested Dr. Castle 86F with right knee wound infection admitted to [facility] over the weekend and transferred to [facility]. Patient is s/p right knee TKR approx 11 years ago, with open patellar dislocation s/p revision TKR 12/12/16 which included open treatment of patella fracture, 2 component revision, posterior capsular release, lateral retinacular release. She now presents with wound infection. Unable to obtain any history from patient Case d/w Cameron Joy son, who is next of kin and will consent for procedure. Review of Systems - Review of Systems Systems not reviewed;Unavailable: Dementia Past Patient History - Tetanus Immunizations Tetanus Immunization: Unknown - Past Medical History & Family History Past Medical History?: Yes - Past Social History Smoking Status: Never Smoked - CARDIAC Hx Cardiac Disorders: Yes Hx Congestive Heart Failure: Yes Hx Hypercholesterolemia: Yes Hx Hypertension: Yes - PULMONARY Hx Respiratory Disorders: Yes Hx Pneumonia: Yes - NEUROLOGICAL Hx Dementia: Yes - HEENT Hx HEENT Problems: No - RENAL Hx Chronic Kidney Disease: Yes - ENDOCRINE/METABOLIC Hx Endocrine Disorders: Yes Hx Diabetes Mellitus Type 2: Yes Hx Hypothyroidism: Yes - HEMATOLOGICAL/ONCOLOGICAL Hx Blood Disorders: Yes Hx Cancer: Yes (Neoplasm colon) - INTEGUMENTARY Hx Dermatological Problems: No - MUSCULOSKELETAL/RHEUMATOLOGICAL Hx Falls: No - GASTROINTESTINAL Hx Liver Failure: Yes (liver cirrhosis) Other/Comment: gi hemorrhage/abdominal mass /bleeding esophageal varices - GENITOURINARY/GYNECOLOGICAL Hx Genitourinary Disorders: Yes Hx Ovarian Cancer: Yes (malignant ovarian tumor) Hx Urinary Tract Infection: Yes - PSYCHIATRIC Hx Substance Use: No - SURGICAL HISTORY Hx Surgeries: Yes Hx Orthopedic Surgery: Yes (rt knee replacement 20 yrs ago) - ANESTHESIA Hx Anesthesia: Yes Hx Anesthesia Reactions: No Meds Allergies/Adverse Reactions: Allergies Allergy/AdvReac Type Severity Reaction Status Date / Time No Known Allergies Allergy Verified 05/23/16 11:21 - Medications Medications: Current Medications Acetaminophen (Tylenol 325mg Tab) 650 mg PO Q6 PRN PRN Reason: Fever >100.4 F Docusate Sodium (Colace) 100 mg PO BID [facility] Oxycodone/Acetaminophen (Percocet 5/325 Mg Tab) 1 tab PO Q4 PRN PRN Reason: Pain, moderate (4-7) Stop: 02/19/17 20:31 Last Admin: 02/16/17 21:23 Dose: 1 tab Pantoprazole Sodium (Protonix Ec Tab) 40 mg PO DAILY [facility] Physical Exam - Constitutional Appears: Confused - Extremities Exam Additional comments: patient doesnt follow commands calves soft , no obvious tenderness +DP/PT pulses - Skin Skin Exam: Warm Additional comments: 1cm deep draining wound to right knee, noted pus and serous fluid Results - Vital Signs Recent Vital Signs: Last Vital Signs Temp 98 F 02/17/17 08:12 Pulse 72 02/17/17 08:12 Resp 20 02/17/17 08:12 BP 132/63 02/17/17 08:12 Pulse Ox 100 02/17/17 08:12 - Labs Result Diagrams: 02/17/17 05:15 02/17/17 05:15 Labs: Laboratory Results - last 24 hr 02/17/17 02/17/17 05:15 05:15 WBC 4.0 L RBC 3.10 L Hgb 9.9 L Hct 31.0 L MCV 99.8 H D MCH 31.8 H MCHC 31.8 L RDW 17.8 H Plt Count 98 L MPV 9.4 Neut % (Auto) 47.7 L Lymph % (Auto) 34.3 [place] % (Auto) 10.9 H Eos % (Auto) 6.3 H Baso % (Auto) 0.8 Neut # 1.9 Lymph # 1.4 [place] # 0.4 Eos # 0.3 Baso # 0.0 Sodium 140 Potassium 3.9 Chloride 109 H Carbon Dioxide 26 Anion Gap 9 L BUN 13 Creatinine 0.8 Est GFR ( Amer) > 60 Est GFR (Non-Af Amer) > 60 Random Glucose 82 Calcium 8.4 Total Bilirubin 0.5 AST 47 H ALT 39 Alkaline Phosphatase 180 H Total Protein 6.1 L Albumin 2.7 L D Globulin 3.4 Albumin/Globulin Ratio 0.8 L Assessment & Plan (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 Castle labs reviewed, T&C, u/a, Pt/PTT ordered awaiting medical/cardiac optimization d/w Dr. Castle, agrees with above diet reordered hematology consult requested Status: Acute
[2017-02-17] MEDS: Pantoprazole 40 mg EC Tab PO SCH (09:19)
--- NOTE | 2017-02-17 09:21 | CP.PCM.CON ---
History of Present Illness - History of Present Illness History of Present Illness: THE PATIENT IS AN 83 YEAR OLD FEMALE WITH A HISTORY OF A RIGHT TKR ABOUT 20 YEARS AGO WHO HAD AN INFECTED ULCER AT THE SURGICAL SITE WITH PROTRUDING HARDWARE SURGICALLY REPAIRED [address] WEISS AT [facility]. SHE NOW HAS AN INFECTED SURGICAL SITE WITH PUS AND WAS SENT BACK TO [facility] TO BE TREATED BY DR WEISS. SHE ALSO HAS A HISTORY OF HYPERTENSION, HYPERLIPIDEMIA, HYPOTHYROIDISM, CIRRHOSIS OF THE LIVER AND DEMENTIA. CARDIOLOGY WAS ASKED TO SEE AND FOLLOW HER. SHE DENIES CHEST PAIN OR SOB. Past Patient History - Tetanus Immunizations Tetanus Immunization: Unknown - Past Medical History & Family History Past Medical History?: Yes - Past Social History Smoking Status: Never Smoked - CARDIAC Hx Cardiac Disorders: Yes Hx Congestive Heart Failure: Yes Hx Hypercholesterolemia: Yes Hx Hypertension: Yes - PULMONARY Hx Respiratory Disorders: Yes Hx Pneumonia: Yes - NEUROLOGICAL Hx Dementia: Yes - HEENT Hx HEENT Problems: No - RENAL Hx Chronic Kidney Disease: Yes - ENDOCRINE/METABOLIC Hx Endocrine Disorders: Yes Hx Diabetes Mellitus Type 2: Yes Hx Hypothyroidism: Yes - HEMATOLOGICAL/ONCOLOGICAL Hx Blood Disorders: Yes Hx Cancer: Yes (Neoplasm colon) - INTEGUMENTARY Hx Dermatological Problems: No - MUSCULOSKELETAL/RHEUMATOLOGICAL Hx Falls: No - GASTROINTESTINAL Hx Liver Failure: Yes (liver cirrhosis) Other/Comment: gi hemorrhage/abdominal mass /bleeding esophageal varices - GENITOURINARY/GYNECOLOGICAL Hx Genitourinary Disorders: Yes Hx Ovarian Cancer: Yes (malignant ovarian tumor) Hx Urinary Tract Infection: Yes - PSYCHIATRIC Hx Substance Use: No - SURGICAL HISTORY Hx Surgeries: Yes Hx Orthopedic Surgery: Yes (rt knee replacement 20 yrs ago) - ANESTHESIA Hx Anesthesia: Yes Hx Anesthesia Reactions: No Meds Allergies/Adverse Reactions: Allergies Allergy/AdvReac Type Severity Reaction Status Date / Time No Known Allergies Allergy Verified 05/23/16 11:21 - Medications Medications: Current Medications Acetaminophen (Tylenol 325mg Tab) 650 mg PO Q6 PRN PRN Reason: Fever >100.4 F Docusate Sodium (Colace) 100 mg PO BID [facility] Oxycodone/Acetaminophen (Percocet 5/325 Mg Tab) 1 tab PO Q4 PRN PRN Reason: Pain, moderate (4-7) Stop: 02/19/17 20:31 Last Admin: 02/16/17 21:23 Dose: 1 tab Pantoprazole Sodium (Protonix Ec Tab) 40 mg PO DAILY [facility] Physical Exam - Respiratory Exam Respiratory Exam: Clear to Auscultation Bilateral - Cardiovascular Exam Cardiovascular Exam: REGULAR RHYTHM, +S1, +S2 - Extremities Exam Additional comments: SURGICAL DRESSINGS OVER RIGHT KNEE AREA - Additional Findings Additional findings: EKG NSR Results - Vital Signs Recent Vital Signs: Last Vital Signs Temp 98 F 02/17/17 08:12 Pulse 72 02/17/17 08:12 Resp 20 02/17/17 08:12 BP 132/63 02/17/17 08:12 Pulse Ox 100 02/17/17 08:12 - Labs Result Diagrams: 02/17/17 05:15 02/17/17 05:15 Labs: Laboratory Results - last 24 hr 02/17/17 02/17/17 02/17/17 05:15 05:15 08:25 WBC 4.0 L RBC 3.10 L Hgb 9.9 L Hct 31.0 L MCV 99.8 H D MCH 31.8 H MCHC 31.8 L RDW 17.8 H Plt Count 98 L MPV 9.4 Neut % (Auto) 47.7 L Lymph % (Auto) 34.3 [place] % (Auto) 10.9 H Eos % (Auto) 6.3 H Baso % (Auto) 0.8 Neut # 1.9 Lymph # 1.4 [place] # 0.4 Eos # 0.3 Baso # 0.0 Sodium 140 Potassium 3.9 Chloride 109 H Carbon Dioxide 26 Anion Gap 9 L BUN 13 Creatinine 0.8 Est GFR ( Amer) > 60 Est GFR (Non-Af Amer) > 60 Random Glucose 82 Calcium 8.4 Total Bilirubin 0.5 AST 47 H ALT 39 Alkaline Phosphatase 180 H Total Protein 6.1 L Albumin 2.7 L D Globulin 3.4 Albumin/Globulin Ratio 0.8 L Crossmatch See Detail BBK History Checked Patient has bt Assessment & Plan - Assessment and Plan (Free Text) Assessment: INFECTED RIGHT KNEE HYPERTENSION HYPERLIPIDEMIA Plan: PATIENT IS CLEARED FOR SURGERY FROM CARDIAC [facility] LISINOPRIL RESTARTED ID TO SEE PATIENT
--- NOTE | 2017-02-17 09:42 | PQF GENQUE ---
This form is a permanent part of the medical record 02/17/17 Dr. Candelaria, Admitting RN has documentation of a sacral stage 2, healing ? R upper buttocks redness noted. 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 Documentation Clarification: After workup please clarify if you concur with the above breakdown and please document along with the ETIOLOGY and if POA. Clarification of your documentation is requested to better reflect the severity of illness and intensity of treatment of your patient. Indicators present [] Specify: [] [] Specify: [] [] Specify: [] [] Specify: [] Location in the medical record that reflects the above clinical findings: [] Treatment Provided: [] PHYSICIAN'S RESPONSE Based on your medical judgment of the clinical indicators outlined above please clarify the following: [x] Practitioner response: upon review a small 0.5cm , stage II sacral ulcer was noted, redness on right upper buttock not seen [] If unable to determine, please check the box, sign and date. Present On Admission (POA) Indicator: [x] Present at the time of admission [] Not present at the time of admission [] Clinically Undetermined In responding to this query, please exercise your independent professional judgment. The fact that a question is asked does not imply that any particular answer is desired or expected. Thank you for your clarification on this documentation. If you have any questions please call: extension [phone] * Thank you, Neda Hancock RN [facility]
[2017-02-17 09:58] LABS: RBC URINE 3 /hpf (0-3); URINE BILIRUBIN NEGATIVE (NEGATIVE); URINE BLOOD NEGATIVE (NEGATIVE); URINE COLOR YELLOW (YELLOW); URINE GLUCOSE (UA) NEG (Normal); URINE KETONE NEGATIVE (NEGATIVE); URINE LEUKOCYTE ESTERASE NEG Leu/uL (Negative); URINE PROTEIN NEGATIVE (NEGATIVE); URINE UROBILINOGEN 0.2-1.0 mg/dL (0.2-1.0); WBC URINE 1 /hpf (0-5)
[2017-02-17] MEDS ORDERED: Magnesium Hydroxide Susp 30 ml UD PO PRN (10:12)
[2017-02-17] MEDS ORDERED: Pantoprazole 40 mg EC Tab PO SCH (10:15)
[2017-02-17 10:40] LABS: PARTIAL THROMBOPLASTIN TIME 35.4 Seconds (25.6-37.1)
--- NOTE | 2017-02-17 11:44 | CP.PCM.PN ---
Subjective - Date & Time of Evaluation Date of Evaluation: 02/17/17 Time of Evaluation: 09:00 - Subjective Subjective: Patient seen and examined bedside. Complains of right knee pain. Hemodynamically stable BP 132/63 Tmax 100.1 saturating 98 % in RA HR 72 WBC 4 K , Hgb 9.9 Plt 98 K Objective - Vital Signs/Intake and Output Vital Signs (last 24 hours): Temp Pulse Resp BP Pulse Ox 98 F 72 20 132/63 100 02/17/17 08:12 02/17/17 08:12 02/17/17 08:12 02/17/17 08:12 02/17/17 08:12 - Medications Medications: Current Medications Acetaminophen (Tylenol 325mg Tab) 650 mg PO Q6 PRN PRN Reason: Fever >100.4 F Citalopram Hydrobromide (Celexa) 10 mg PO HS [facility] Docusate Sodium (Colace) 100 mg PO BID [facility] Last Admin: 02/17/17 09:19 Dose: Not Given Donepezil HCl (Aricept) 10 mg PO HS [facility] Ferrous Sulfate (Feosol) 325 mg PO DAILY [facility] Vancomycin/Sodium Chloride (Vancocin) 1 gm in 200 mls @ 133.333 mls/hr IVPB Q12 [facility] PRN Reason: Protocol Stop: 02/22/17 21:01 Cefepime HCl 2 gm/ Dextrose 100 mls @ 100 mls/hr IVPB Q12 [facility] Vancomycin HCl 1 gm/ Sodium (Chloride) 250 mls @ 166.667 mls/hr IVPB ONCE ONE PRN Reason: Protocol Stop: 02/17/17 13:03 Dextrose/Sodium Chloride (Dextrose 5%/0.9% Ns 1000 Ml) 1,000 mls @ 80 mls/hr IV .[id number] [facility] Stop: 02/18/17 11:43 Levothyroxine Sodium (Synthroid) 75 mcg PO DAILY [facility] Lisinopril (Zestril) 2.5 mg PO DAILY [facility] Magnesium Hydroxide (Milk Of Magnesia) 30 ml PO Q72 PRN PRN Reason: Constipation Memantine (Namenda) 10 mg PO BID [facility] Multivitamins/Minerals (Therapeutic-M Tab) 1 tab PO DAILY [facility] Mupirocin (Bactroban Ointment) 1 applic TOP DAILY [facility] Oxycodone/Acetaminophen (Percocet 5/325 Mg Tab) 1 tab PO Q4 PRN PRN Reason: Pain, moderate (4-7) Stop: 02/19/17 20:31 Last Admin: 02/16/17 21:23 Dose: 1 tab Pantoprazole Sodium (Protonix Ec Tab) 40 mg PO DAILY [facility] Last Admin: 02/17/17 09:19 Dose: Not Given Propranolol HCl (Inderal) 10 mg PO Q8H [facility] Tramadol HCl (Ultram) 50 mg PO Q6 PRN PRN Reason: Pain, moderate (4-7) Ursodiol (Actigall) 300 mg PO BID [facility] - Labs Labs: 02/17/17 05:15 02/17/17 05:15 PT 12.7 Seconds (9.8-13.1) 02/17/17 10:05 INR 1.1 (0.9-1.2) 02/17/17 10:05 APTT 35.4 Seconds (25.6-37.1) 02/17/17 10:05 - Constitutional Appears: Non-toxic, Chronically Ill - Head Exam Head Exam: ATRAUMATIC, NORMOCEPHALIC - Eye Exam Eye Exam: EOMI, PERRL Pupil Exam: NORMAL ACCOMODATION - ENT Exam ENT Exam: Mucous Membranes Moist, Normal Exam - Neck Exam Neck Exam: Full ROM, Normal Inspection - Respiratory Exam Respiratory Exam: Clear to Ausculation Bilateral. absent: Rhonchi, Wheezes, Respiratory Distress - Cardiovascular Exam Cardiovascular Exam: REGULAR RHYTHM, +S1, +S2. absent: JVD - GI/Abdominal Exam GI & Abdominal Exam: Soft, Normal Bowel Sounds. absent: Distended, Guarding, Tenderness, Rebound - Rectal Exam Rectal Exam: Deferred - Extremities Exam Extremities Exam: absent: Calf Tenderness, Pedal Edema Additional comments: Right knee anterior aspect surgical open surgical wound , hardware visible with erythema and tenderness on palpation - Back Exam Back Exam: NORMAL INSPECTION - Neurological Exam Neurological Exam: Alert, Awake Additional comments: oriented to person and place - Skin Skin Exam: Dry, Warm Assessment and Plan - Assessment and Plan (Free Text) Assessment: 86 yo female with history of Hypothyroidism, HLD, Dementia, HTN, Abdominal Mass , Malignant Ovarian Tumor and Liver Cirrhosis had revision of right TKR [address] Castle was admitted last night to [facility] after her knee was noted to be swollen, reddened and slightly oozing some pus in ELIZABET. She also continued to complain of pain on the right knee but denied having fever or chills. As per history, her right knee was first operated for right TKR 20 yrs ago and was brought in to [facility] for revision because the knee has a crater exposing the prosthetic material and oozing serou-sanguinous fluid. 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 1. Infected surgical wound with septic joint History right TKR 20 years ago and revision 2 months ago Was on Zosyn IV at [place] Ortho and ID consulted Started Vanco and Maxipime Follow up wound and blood cultures Cardiology consulted for preop clearance 2. Status post revision of total replacement of right knee as above 3. Thrombocytopenia/ pancytopenia WBC 4 Hgb 9.9 Plt 98 K probably secondary to malignancy and liver failure. Hematology consulted and case discussed with Dr. Gerard. Will check manual Platelet count stat before deciding for transfusion 4. Liver cirrhosis Chronic continue Propranolol 10mg PO q 8hrs 5. CHF ruled out patient has no CHF cardiology consult with Dr Monaco. ECHO has preserved LV function 6. HTN (hypertension) Chronic BP stable. continue Propranolol and Lisinopril 7.Dementia Chronic on Namenda and Aricept 8. DVT prophylaxis SCD for now
[2017-02-17] MEDS ORDERED: Thrombin Topical 5,000 IU Spray Kit ONE (12:45)
[2017-02-17] MEDS ORDERED: ceFAZolin IV 1 gm in Dextrose 0 GM/0 ML BAG IVPB ONE (12:45)
[2017-02-17] MEDS ORDERED: Gentamicin 80 mg/2mL Inj. ONE (12:45)
[2017-02-17] MEDS ORDERED: Absorbable Gelatin Sponge Size 100 ONE (12:45)
[2017-02-17] MEDS ORDERED: Bacitracin Ointment 30 GM TUBE ONE (12:45)
[2017-02-17] MEDS ORDERED: Lidocaine 1% Inj (20ml) ONE (14:48)
--- NOTE | 2017-02-17 15:18 | PCM.SURG1 ---
Surgeon's Initial Post Op Note - Surgeon's Notes Surgeon: Vishal Montana MD Uniforms Sales Representative: NONE Type of Anesthesia: Local Pre-Operative Diagnosis: Knee infection Operative Findings: Patent right basilic vein Post-Operative Diagnosis: Knee infection Operation Performed: Single lumen picc placement right basilic vein, 33 cm. Tip is in the SVC. Specimen/Specimens Removed: NONE Estimated Blood Loss: EBL {In ML}: 2 Blood Products Given: N/A Drains Used: No Drains Post-Op Condition: Fair Date of Surgery/Procedure: 02/17/17 Time of Surgery/Procedure: 15:15
[2017-02-17] MEDS ORDERED: Povidone Iodine Topical 10% Sol ONE (16:26)
--- NOTE | 2017-02-17 16:28 | CARD ---
APPROVED REPORT EKG Measurement Heart [id number] <Conclusion> Normal sinus rhythm Normal ECG
[2017-02-17] MEDS ORDERED: Cefepime 2 GM in Sodium Chloride 0.9% 100 ML IVPB SCH (17:00)
[2017-02-17] MEDS: Dextrose 5%/0.9% NS 1,000 ML IV SCH (17:18)
[2017-02-17] MEDS: Cefepime 2 GM in Dextrose 5% In Water 100 ML IVPB SCH (20:15)
[2017-02-17] MEDS ORDERED: CEFEPIME IVPB SCH (21:00)
[2017-02-17] MEDS ORDERED: NS IVPB SCH (21:00)
[2017-02-17] MEDS: Vancomycin 1 gm/NS 200 ml 1 GM/200 ML BAG IVPB SCH (21:04)
--- NOTE | 2017-02-17 21:27 | CT ---
EXAM: CT Right Lower Extremity Without Intravenous Contrast, Knee EXAM DATE/TIME: 02/17/2017 4:59 PM CLINICAL HISTORY: 86 years old, female; Signs and symptoms; Other: Infected joint; Prior surgery; Surgery date: 6+ months; Surgery type: Last surgery, was revision of rt knee about 2 months ago TECHNIQUE: Axial computed tomography images of the right knee without intravenous contrast. All CT scans at this facility use one or more dose reduction techniques, viz.: automated exposure control; ma/kV adjustment per patient size (including targeted exams where dose is matched to indication; i.e. head); or iterative reconstruction technique. Coronal reformatted images were created and reviewed. COMPARISON: CT - KNEE WITHOUT CONTRAST RIGHT 12/10/2016 4:16:25 PM FINDINGS: Bones/joints: There is a right knee prosthesis. Extensive streak artifact limits evaluation of the knee. There is soft tissue swelling at the knee. There is air and fluid in the knee joint. Allowing for streak, no instrument failure is identified. Bony structures are osteopenic. No acute fracture is identified. Muscles appear atrophic. Soft tissues: See above. IMPRESSION: Anatomic alignment of a right knee prosthesis; fluid and air in the knee joint which may be postoperative; muscular atrophy, no fracture seen
[2017-02-18] MEDS: Dextrose 5%/0.9% NS 1,000 ML IV SCH (00:15)
--- NOTE | 2017-02-18 05:06 | CON ---
INFECTIOUS DISEASE CONSULTATION DATE: HISTORY OF PRESENT ILLNESS: She is an 86-year-old female with history of CHF, hypothyroidism, dementia, H-type hypertension, abdominal mass, malignant ovarian tumor and liver cirrhosis, who had a revision of a right total knee replacement two months ago by Dr. Castle. Apparently, was seen at outside hospital last night after the knee was noted to be swollen, reddened and slightly oozing some purulent material. Apparently, she had some pain, although it is only noted when you put any pressure on the wound. There was no fever or chills. Apparently, the knee was done many years ago approximately 20, and she recently was brought to [facility] for an exposure of the prosthetic material with oozing and serosanguineous fluid. Total knee replacement was done at that time. The patient is now admitted because of the previously noted swelling and opening of the wound and opening of the lesion at the lateral side of the knee, and there is some serosanguineous fluid. She also has an eschar noted going proximally up from the wound. The patient is awake, but somewhat confused, although she does only speak Montserratian. She lives in a custodial, has a history of CHF as previously noted, hypercholesterolemia, and hypertension and also COPD. Has a history of hemorrhage, abdominal mass, bleeding from esophageal varices, and history of a malignant ovarian tumor. PHYSICAL EXAMINATION: HEENT: Facial wasting. NECK: Supple. HEART: Regular sinus rhythm. LUNGS: Clear, but diminished. ABDOMEN: Soft, maybe some ascites. EXTREMITIES: Knee as noted before. ASSESSMENT AND PLAN: At present time, probably needs to have a clean-out procedure of the right knee and also removal of the eschar. I have discussed this also with For the present time, we will treat her with vancomycin and Maxipime as previously ordered. Jose Saeed MD MTDD
[2017-02-18] MEDS: Levothyroxine 75 MCG TAB PO SCH (05:40)
[2017-02-18 06:41] LABS: BASO % 0.8 % (0.0-2.0); EOS # 0.3 K/uL (0.0-0.7); EOS % 7.3 % (0.0-4.0); HEMATOCRIT 29.4 % (34.0-47.0); LYMPH % 25.9 % (20.0-40.0); MEAN CELL VOLUME 100.5 fl (81.0-99.0); MEAN CORPUSCULAR HEMOGLOBIN 32.7 pg (27.0-31.0); MEAN CORPUSCULAR HGB CONC 32.6 g/dL (33.0-37.0); MEAN PLATELET VOLUME 9.1 fl (7.2-11.7); MONO # 0.5 K/uL (0.0-0.8); MONO % 12.3 % (0.0-10.0); NEUT % 53.7 % (50.0-75.0); RED CELL DISTRIBUTION WIDTH 17.7 % (11.5-14.5); WHITE BLOOD COUNT 3.7 K/uL (4.8-10.8)
[2017-02-18 06:58] LABS: BLOOD UREA NITROGEN 10 mg/dl (7-17); CALCIUM 8.5 mg/dL (8.4-10.2); CARBON DIOXIDE 28 mmol/L (22-30); CHLORIDE 109 mmol/L (98-107); GFR AFRICAN-AMERICAN > 60; GLUCOSE,RANDOM 104 mg/dL (65-105); POTASSIUM 3.6 MMOL/L (3.6-5.0); SODIUM 143 mmol/l (132-148)
--- NOTE | 2017-02-18 07:45 | CP.PCM.PN ---
Subjective - Date & Time of Evaluation Date of Evaluation: 02/18/17 Time of Evaluation: 09:30 - Subjective Subjective: Patient seen and examined bedside.Elderly female lying in bed complaining of pain to right knee especially with movement and palpation. Hemodynamically stable, afebrile. No acute issues overnight Objective - Vital Signs/Intake and Output Vital Signs (last 24 hours): Temp Pulse Resp BP Pulse Ox 98.2 F 67 20 93/50 L 98 02/18/17 00:35 02/18/17 02:17 02/18/17 00:35 02/18/17 02:17 02/18/17 00:35 - Medications Medications: Current Medications Acetaminophen (Tylenol 325mg Tab) 650 mg PO Q6 PRN PRN Reason: Fever >100.4 F Citalopram Hydrobromide (Celexa) 10 mg PO [facility] Last Admin: 02/17/17 21:01 Dose: 10 mg Docusate Sodium (Colace) 100 mg PO BID [facility] Last Admin: 02/17/17 17:18 Dose: 100 mg Donepezil HCl (Aricept) 10 mg PO [facility] Last Admin: 02/17/17 21:01 Dose: 10 mg Ferrous Sulfate (Feosol) 325 mg PO DAILY [facility] Vancomycin/Sodium Chloride (Vancocin) 1 gm in 200 mls @ 133.333 mls/hr IVPB Q12 [facility] PRN Reason: Protocol Stop: 02/22/17 21:01 Last Admin: 02/17/17 21:04 Dose: 133.333 mls/hr Cefepime HCl 2 gm/ Dextrose 100 mls @ 100 mls/hr IVPB Q12 [facility] Last Admin: 02/17/17 20:15 Dose: 100 mls/hr Dextrose/Sodium Chloride (Dextrose 5%/0.9% Ns 1000 Ml) 1,000 mls @ 80 mls/hr IV .[id number] [facility] Stop: 02/18/17 11:43 Last Admin: 02/18/17 00:15 Dose: Not Given Levothyroxine Sodium (Synthroid) 75 mcg PO DAILY@0630 [facility] Last Admin: 02/18/17 05:40 Dose: 75 mcg Lisinopril (Zestril) 2.5 mg PO DAILY [facility] Magnesium Hydroxide (Milk Of Magnesia) 30 ml PO Q72 PRN PRN Reason: Constipation Memantine (Namenda) 10 mg PO BID [facility] Last Admin: 02/17/17 17:19 Dose: 10 mg Multivitamins/Minerals (Therapeutic-M Tab) 1 tab PO DAILY [facility] Mupirocin (Bactroban Ointment) 1 applic TOP DAILY [facility] Oxycodone/Acetaminophen (Percocet 5/325 Mg Tab) 1 tab PO Q4 PRN PRN Reason: Pain, moderate (4-7) Stop: 02/19/17 20:31 Last Admin: 02/16/17 21:23 Dose: 1 tab Pantoprazole Sodium (Protonix Ec Tab) 40 mg PO DAILY [facility] Last Admin: 02/17/17 09:19 Dose: Not Given Propranolol HCl (Inderal) 10 mg PO Q8H [facility] Last Admin: 02/18/17 02:17 Dose: 10 mg Tramadol HCl (Ultram) 50 mg PO Q6 PRN PRN Reason: Pain, moderate (4-7) Ursodiol (Actigall) 300 mg PO BID [facility] Last Admin: 02/17/17 17:18 Dose: 300 mg - Labs Labs: 02/18/17 05:45 02/18/17 05:45 PT 12.7 Seconds (9.8-13.1) 02/17/17 10:05 INR 1.1 (0.9-1.2) 02/17/17 10:05 APTT 35.4 Seconds (25.6-37.1) 02/17/17 10:05 - Constitutional Appears: Non-toxic, No Acute Distress - Head Exam Head Exam: ATRAUMATIC, NORMAL INSPECTION, NORMOCEPHALIC - Eye Exam Eye Exam: EOMI, PERRL Pupil Exam: NORMAL ACCOMODATION - ENT Exam ENT Exam: Mucous Membranes Moist, Normal Exam - Neck Exam Neck Exam: Full ROM, Normal Inspection - Respiratory Exam Respiratory Exam: Clear to Ausculation Bilateral, NORMAL BREATHING PATTERN. absent: Rhonchi, Wheezes, Respiratory Distress - Cardiovascular Exam Cardiovascular Exam: REGULAR RHYTHM, RRR, +S1, +S2. absent: JVD - GI/Abdominal Exam GI & Abdominal Exam: Soft, Normal Bowel Sounds. absent: Distended, Guarding, Tenderness, Rebound - Rectal Exam Rectal Exam: Deferred - Extremities Exam Extremities Exam: absent: Calf Tenderness, Pedal Edema Additional comments: right knee anterior knee open wound with prosthesis visible surgical scar present tenderness with palpation and decreased ROM - Back Exam Back Exam: NORMAL INSPECTION - Neurological Exam Neurological Exam: Alert, Awake - Psychiatric Exam Psychiatric exam: Flat Affect - Skin Skin Exam: Dry, Warm Additional comments: small sacral decubitus stage II Assessment and Plan - Assessment and Plan (Free Text) Assessment: 86 yo female with history of Hypothyroidism, HLD, Dementia, HTN, Abdominal Mass , Malignant Ovarian Tumor and Liver Cirrhosis had revision of right TKR [address] Castle was admitted last night to [facility] after her knee was noted to be swollen, reddened and slightly oozing some pus in [place]IZABET. She also continued to complain of pain on the right knee but denied having fever or chills. As per history, her right knee was first operated for right TKR 20 yrs ago and was brought in to [facility] for revision because the knee has a crater exposing the prosthetic material and oozing serou-sanguinous fluid. 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 1. Infected surgical wound with septic joint History right TKR 20 years ago and revision [address] knee showed Anatomic alignment of a right knee prosthesis; fluid and air in the knee joint which may be postoperative; muscular atrophy, no fracture seen Was on Zosyn IV at [place] Ortho and ID consulted Started Vanco and Maxipime Follow up wound and blood cultures Cardiology and hematology clearance on chart Ortho on consult .Patient for OR in AM 2. Status post revision of total replacement of right knee as above 3. Thrombocytopenia/ pancytopenia WBC 4 Hgb 9.9 Plt 98 K probably secondary to malignancy and liver failure. Hematology consulted and case discussed with Dr. Gerard. Manual Plt count is 99K. Patient is cleared for surgery 4. Liver cirrhosis Chronic continue Propranolol 10mg PO q 8hrs 5. CHF ruled out patient has no CHF cardiology consult with Dr Monaco. ECHO has preserved LV function 6. HTN (hypertension) Chronic BP stable. continue Propranolol and Lisinopril 7.Dementia Chronic on Namenda and Aricept 8. DVT prophylaxis SCD for now
--- NOTE | 2017-02-18 08:19 | CP.PCM.PN ---
Subjective - Date & Time of Evaluation Date of Evaluation: 02/18/17 Time of Evaluation: 08:16 - Subjective Subjective: Patient complains of knee pain during exam. Objective - Vital Signs/Intake and Output Vital Signs (last 24 hours): Temp Pulse Resp BP Pulse Ox 98.3 F 73 18 110/72 96 02/18/17 07:53 02/18/17 07:53 02/18/17 07:53 02/18/17 07:53 02/18/17 07:53 - Medications Medications: Current Medications Acetaminophen (Tylenol 325mg Tab) 650 mg PO Q6 PRN PRN Reason: Fever >100.4 F Citalopram Hydrobromide (Celexa) 10 mg PO HS [facility] Last Admin: 02/17/17 21:01 Dose: 10 mg Docusate Sodium (Colace) 100 mg PO BID [facility] Last Admin: 02/17/17 17:18 Dose: 100 mg Donepezil HCl (Aricept) 10 mg PO [facility] Last Admin: 02/17/17 21:01 Dose: 10 mg Ferrous Sulfate (Feosol) 325 mg PO DAILY [facility] Vancomycin/Sodium Chloride (Vancocin) 1 gm in 200 mls @ 133.333 mls/hr IVPB Q12 [facility] PRN Reason: Protocol Stop: 02/22/17 21:01 Last Admin: 02/17/17 21:04 Dose: 133.333 mls/hr Cefepime HCl 2 gm/ Dextrose 100 mls @ 100 mls/hr IVPB Q12 [facility] Last Admin: 02/17/17 20:15 Dose: 100 mls/hr Dextrose/Sodium Chloride (Dextrose 5%/0.9% Ns 1000 Ml) 1,000 mls @ 80 mls/hr IV .[id number] [facility] Stop: 02/18/17 11:43 Last Admin: 02/18/17 00:15 Dose: Not Given Levothyroxine Sodium (Synthroid) 75 mcg PO DAILY@0630 [facility] Last Admin: 02/18/17 05:40 Dose: 75 mcg Lisinopril (Zestril) 2.5 mg PO DAILY [facility] Magnesium Hydroxide (Milk Of Magnesia) 30 ml PO Q72 PRN PRN Reason: Constipation Memantine (Namenda) 10 mg PO BID [facility] Last Admin: 02/17/17 17:19 Dose: 10 mg Multivitamins/Minerals (Therapeutic-M Tab) 1 tab PO DAILY [facility] Mupirocin (Bactroban Ointment) 1 applic TOP DAILY [facility] Oxycodone/Acetaminophen (Percocet 5/325 Mg Tab) 1 tab PO Q4 PRN PRN Reason: Pain, moderate (4-7) Stop: 02/19/17 20:31 Last Admin: 02/16/17 21:23 Dose: 1 tab Pantoprazole Sodium (Protonix Ec Tab) 40 mg PO DAILY [facility] Last Admin: 02/17/17 09:19 Dose: Not Given Propranolol HCl (Inderal) 10 mg PO Q8H [facility] Last Admin: 02/18/17 02:17 Dose: 10 mg Tramadol HCl (Ultram) 50 mg PO Q6 PRN PRN Reason: Pain, moderate (4-7) Ursodiol (Actigall) 300 mg PO BID [facility] Last Admin: 02/17/17 17:18 Dose: 300 mg - Labs Labs: 02/18/17 05:45 02/18/17 05:45 PT 12.7 Seconds (9.8-13.1) 02/17/17 10:05 INR 1.1 (0.9-1.2) 02/17/17 10:05 APTT 35.4 Seconds (25.6-37.1) 02/17/17 10:05 - Extremities Exam Additional comments: Right knee: deep draining wound noted, eschar to incision line, unsure if full thickness. does not follow commands. +DP/PT pulses, calves soft no obvious tenderness Assessment and Plan (1) Infection of prosthetic right knee joint Assessment & Plan: NPO p MN for OR 02/19 for removal of implant and spacer placement manual platelet count 99 hematology consultation appreciated T&C 2 units PRBC PICC line placed, pt will need course of IV abx as per ID post explant labs in am cardiology optimization noted d/w Dr. Castle, agrees with above Status: Acute
[2017-02-18] MEDS: Multivitamin With Minerals Tab PO SCH (08:45)
[2017-02-18] MEDS: Cefepime 2 GM in Dextrose 5% In Water 100 ML IVPB SCH ×2 (08:45→20:34)
[2017-02-18] MEDS: Pantoprazole 40 mg EC Tab PO SCH (08:47)
--- NOTE | 2017-02-18 08:52 | CP.PCM.CON ---
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 The patient had progressive complications related to an open right knee wound with drainage and exposure of hardware from prior orthopedic surgery which was medically and surgically treated during her last hospitalization. She is currently readmitted with 1 week right knee infection requiring treatment. I evaluated her during her last admission for low platelets. She was transfused platelets prior to surgery for a goal platelet count at minimum 100,000. Her pancytopenia was felt to be related to liver disease and splenic sequestration. 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 Allergies: NKA Review of systems: All remaining review of systems including HEENT, cardiovacular, respiratory, gastrointestinal, genitoruinary, musculoskeletal, dermatologic, neurologic, and psychiatric are negative unless mentioned in the HPI. Past Patient History - Tetanus Immunizations Tetanus Immunization: Unknown - Past Medical History & Family History Past Medical History?: Yes - Past Social History Smoking Status: Never Smoked - CARDIAC Hx Cardiac Disorders: Yes Hx Congestive Heart Failure: Yes Hx Hypercholesterolemia: Yes Hx Hypertension: Yes - PULMONARY Hx Respiratory Disorders: Yes Hx Pneumonia: Yes - NEUROLOGICAL Hx Dementia: Yes - HEENT Hx HEENT Problems: No - RENAL Hx Chronic Kidney Disease: Yes - ENDOCRINE/METABOLIC Hx Endocrine Disorders: Yes Hx Diabetes Mellitus Type 2: Yes Hx Hypothyroidism: Yes - HEMATOLOGICAL/ONCOLOGICAL Hx Blood Disorders: Yes Hx Cancer: Yes (Neoplasm colon) - INTEGUMENTARY Hx Dermatological Problems: No - MUSCULOSKELETAL/RHEUMATOLOGICAL Hx Falls: No - GASTROINTESTINAL Hx Liver Failure: Yes (liver cirrhosis) Other/Comment: gi hemorrhage/abdominal mass /bleeding esophageal varices - GENITOURINARY/GYNECOLOGICAL Hx Genitourinary Disorders: Yes Hx Ovarian Cancer: Yes (malignant ovarian tumor) Hx Urinary Tract Infection: Yes - PSYCHIATRIC Hx Substance Use: No - SURGICAL HISTORY Hx Surgeries: Yes Hx Orthopedic Surgery: Yes (rt knee replacement 20 yrs ago) - ANESTHESIA Hx Anesthesia: Yes Hx Anesthesia Reactions: No Meds Allergies/Adverse Reactions: Allergies Allergy/AdvReac Type Severity Reaction Status Date / Time No Known Allergies Allergy Verified 05/23/16 11:21 - Medications Medications: Current Medications Acetaminophen (Tylenol 325mg Tab) 650 mg PO Q6 PRN PRN Reason: Fever >100.4 F Citalopram Hydrobromide (Celexa) 10 mg PO HS [facility] Last Admin: 02/17/17 21:01 Dose: 10 mg Docusate Sodium (Colace) 100 mg PO BID [facility] Last Admin: 02/18/17 08:47 Dose: 100 mg Donepezil HCl (Aricept) 10 mg PO HS [facility] Last Admin: 02/17/17 21:01 Dose: 10 mg Ferrous Sulfate (Feosol) 325 mg PO DAILY [facility] Last Admin: 02/18/17 08:45 Dose: 325 mg Vancomycin/Sodium Chloride (Vancocin) 1 gm in 200 mls @ 133.333 mls/hr IVPB Q12 [facility] PRN Reason: Protocol Stop: 02/22/17 21:01 Last Admin: 02/17/17 21:04 Dose: 133.333 mls/hr Cefepime HCl 2 gm/ Dextrose 100 mls @ 100 mls/hr IVPB Q12 [facility] Last Admin: 02/18/17 08:45 Dose: 100 mls/hr Dextrose/Sodium Chloride (Dextrose 5%/0.9% Ns 1000 Ml) 1,000 mls @ 80 mls/hr IV .[id number] [facility] Stop: 02/18/17 11:43 Last Admin: 02/18/17 00:15 Dose: Not Given Levothyroxine Sodium (Synthroid) 75 mcg PO DAILY@0630 [facility] Last Admin: 02/18/17 05:40 Dose: 75 mcg Lisinopril (Zestril) 2.5 mg PO DAILY [facility] Last Admin: 02/18/17 08:46 Dose: 2.5 mg Magnesium Hydroxide (Milk Of Magnesia) 30 ml PO Q72 PRN PRN Reason: Constipation Memantine (Namenda) 10 mg PO BID [facility] Last Admin: 02/18/17 08:46 Dose: 10 mg Multivitamins/Minerals (Therapeutic-M Tab) 1 tab PO DAILY [facility] Last Admin: 02/18/17 08:45 Dose: 1 tab Mupirocin (Bactroban Ointment) 1 applic TOP DAILY [facility] Oxycodone/Acetaminophen (Percocet 5/325 Mg Tab) 1 tab PO Q4 PRN PRN Reason: Pain, moderate (4-7) Stop: 02/19/17 20:31 Last Admin: 02/16/17 21:23 Dose: 1 tab Pantoprazole Sodium (Protonix Ec Tab) 40 mg PO DAILY [facility] Last Admin: 02/18/17 08:47 Dose: 40 mg Propranolol HCl (Inderal) 10 mg PO Q8H [facility] Last Admin: 02/18/17 02:17 Dose: 10 mg Tramadol HCl (Ultram) 50 mg PO Q6 PRN PRN Reason: Pain, moderate (4-7) Ursodiol (Actigall) 300 mg PO BID [facility] Last Admin: 02/18/17 08:47 Dose: 300 mg Physical Exam - Head Exam Head Exam: ATRAUMATIC - Eye Exam Eye Exam: Normal appearance - ENT Exam ENT Exam: Mucous Membranes Dry - Respiratory Exam Respiratory Exam: NORMAL BREATHING PATTERN - Cardiovascular Exam Cardiovascular Exam: +S1, +S2 - GI/Abdominal Exam GI & Abdominal Exam: Normal Bowel Sounds Results - Vital Signs Recent Vital Signs: Last Vital Signs Temp 98.3 F 02/18/17 07:53 Pulse 73 02/18/17 07:53 Resp 18 02/18/17 07:53 BP 110/62 02/18/17 08:46 Pulse Ox 96 02/18/17 07:53 - Labs Result Diagrams: 02/18/17 05:45 02/18/17 05:45 Labs: Laboratory Results - last 24 hr 02/17/17 02/17/17 02/17/17 08:25 09:32 10:05 WBC RBC Hgb Hct MCV MCH MCHC RDW Plt Count Manual Plt Count MPV Neut % (Auto) Lymph % (Auto) Burke % (Auto) Eos % (Auto) Baso % (Auto) Neut # Lymph # Burke # Eos # Baso # PT 12.7 INR 1.1 APTT 35.4 Sodium Potassium Chloride Carbon Dioxide Anion Gap BUN Creatinine Est GFR ( Amer) Est GFR (Non-Af Amer) POC Glucose (mg/dL) Random Glucose Calcium Urine Color Yellow Urine Clarity Clear Urine pH 6.0 Ur Specific Ramey 1.011 Urine Protein Negative Urine Glucose (UA) Neg Urine Ketones Negative Urine Blood Negative Urine Nitrate Negative Urine Bilirubin Negative Urine Urobilinogen 0.2-1.0 Ur Leukocyte Esterase Neg Urine RBC (Auto) 3 Urine Microscopic WBC 1 Vancomycin Trough Blood Type O POSITIVE Antibody Screen Negative Crossmatch See Detail BBK History Checked Patient has bt 02/17/17 02/17/17 02/17/17 11:52 12:13 15:35 WBC RBC Hgb Hct MCV MCH MCHC RDW Plt Count Manual Plt Count 99 L MPV Neut % (Auto) Lymph % (Auto) Burke % (Auto) Eos % (Auto) Baso % (Auto) Neut # Lymph # Burke # Eos # Baso # PT INR APTT Sodium Potassium Chloride Carbon Dioxide Anion Gap BUN Creatinine Est GFR ( Amer) Est GFR (Non-Af Amer) POC Glucose (mg/dL) 92 94 Random Glucose Calcium Urine Color Urine Clarity Urine pH Ur Specific Ramey Urine Protein Urine Glucose (UA) Urine Ketones Urine Blood Urine Nitrate Urine Bilirubin Urine Urobilinogen Ur Leukocyte Esterase Urine RBC (Auto) Urine Microscopic WBC Vancomycin Trough Blood Type Antibody Screen Crossmatch BBK History Checked 02/17/17 02/17/17 02/18/17 19:03 21:30 04:52 WBC RBC Hgb Hct MCV MCH MCHC RDW Plt Count Manual Plt Count MPV Neut % (Auto) Lymph % (Auto) Burke % (Auto) Eos % (Auto) Baso % (Auto) Neut # Lymph # Burke # Eos # Baso # PT INR APTT Sodium Potassium Chloride Carbon Dioxide Anion Gap BUN Creatinine Est GFR ( Amer) Est GFR (Non-Af Amer) POC Glucose (mg/dL) 125 H 127 H Random Glucose Calcium Urine Color Urine Clarity Urine pH Ur Specific Ramey Urine Protein Urine Glucose (UA) Urine Ketones Urine Blood Urine Nitrate Urine Bilirubin Urine Urobilinogen Ur Leukocyte Esterase Urine RBC (Auto) Urine Microscopic WBC Vancomycin Trough 18.1 H Blood Type Antibody Screen Crossmatch BBK History Checked 02/18/17 02/18/17 05:45 05:45 WBC 3.7 L RBC 2.92 L Hgb 9.6 L Hct 29.4 L MCV 100.5 H MCH 32.7 H MCHC 32.6 L RDW 17.7 H Plt Count 95 L Manual Plt Count MPV 9.1 Neut % (Auto) 53.7 Lymph % (Auto) 25.9 Burke % (Auto) 12.3 H Eos % (Auto) 7.3 H Baso % (Auto) 0.8 Neut # 2.0 Lymph # 1.0 Burke # 0.5 Eos # 0.3 Baso # 0.0 PT INR APTT Sodium 143 Potassium 3.6 Chloride 109 H Carbon Dioxide 28 Anion Gap 10 BUN 10 Creatinine 0.6 L Est GFR ( Amer) > 60 Est GFR (Non-Af Amer) > 60 POC Glucose (mg/dL) Random Glucose 104 Calcium 8.5 Urine Color Urine Clarity Urine pH Ur Specific Ramey Urine Protein Urine Glucose (UA) Urine Ketones Urine Blood Urine Nitrate Urine Bilirubin Urine Urobilinogen Ur Leukocyte Esterase Urine RBC (Auto) Urine Microscopic WBC Vancomycin Trough Blood Type Antibody Screen Crossmatch BBK History Checked Assessment & Plan (1) Pancytopenia Assessment and Plan: suspect related to liver disease given her age, myelodysplastic syndrome is a consideration she has mild leukopenia but no neutropenia I will evaluate her b12, folate, iron stores given her anemia; nutritional deficiency may be contributing her cytopenias the patient has a platelet count of near 100,000 and she is cleared from a hematologic standpoint for orthopedic surgery Thank you for this interesting consult. Status: Acute
[2017-02-18] MEDS: Vancomycin 1 gm/NS 200 ml 1 GM/200 ML BAG IVPB SCH ×2 (09:45→21:56)
--- NOTE | 2017-02-18 11:44 | CP.PCM.PN ---
Subjective - Date & Time of Evaluation Date of Evaluation: 02/18/17 Time of Evaluation: 08:30 - Subjective Subjective: NO COMPLAINTS Objective - Vital Signs/Intake and Output Vital Signs (last 24 hours): Temp Pulse Resp BP Pulse Ox 98.3 F 73 18 110/62 96 02/18/17 07:53 02/18/17 07:53 02/18/17 07:53 02/18/17 08:46 02/18/17 07:53 - Medications Medications: Current Medications Acetaminophen (Tylenol 325mg Tab) 650 mg PO Q6 PRN PRN Reason: Fever >100.4 F Citalopram Hydrobromide (Celexa) 10 mg PO HS [facility] Last Admin: 02/17/17 21:01 Dose: 10 mg Docusate Sodium (Colace) 100 mg PO BID [facility] Last Admin: 02/18/17 08:47 Dose: 100 mg Donepezil HCl (Aricept) 10 mg PO HS [facility] Last Admin: 02/17/17 21:01 Dose: 10 mg Ferrous Sulfate (Feosol) 325 mg PO DAILY [facility] Last Admin: 02/18/17 08:45 Dose: 325 mg Vancomycin/Sodium Chloride (Vancocin) 1 gm in 200 mls @ 133.333 mls/hr IVPB Q12 [facility] PRN Reason: Protocol Stop: 02/22/17 21:01 Last Admin: 02/17/17 21:04 Dose: 133.333 mls/hr Cefepime HCl 2 gm/ Dextrose 100 mls @ 100 mls/hr IVPB Q12 [facility] Last Admin: 02/18/17 08:45 Dose: 100 mls/hr Dextrose/Sodium Chloride (Dextrose 5%/0.9% Ns 1000 Ml) 1,000 mls @ 80 mls/hr IV .[id number] [facility] Stop: 02/18/17 11:43 Last Admin: 02/18/17 00:15 Dose: Not Given Levothyroxine Sodium (Synthroid) 75 mcg PO DAILY@0630 [facility] Last Admin: 02/18/17 05:40 Dose: 75 mcg Lisinopril (Zestril) 2.5 mg PO DAILY [facility] Last Admin: 02/18/17 08:46 Dose: 2.5 mg Magnesium Hydroxide (Milk Of Magnesia) 30 ml PO Q72 PRN PRN Reason: Constipation Memantine (Namenda) 10 mg PO BID [facility] Last Admin: 02/18/17 08:46 Dose: 10 mg Multivitamins/Minerals (Therapeutic-M Tab) 1 tab PO DAILY [facility] Last Admin: 02/18/17 08:45 Dose: 1 tab Mupirocin (Bactroban Ointment) 1 applic TOP DAILY [facility] Oxycodone/Acetaminophen (Percocet 5/325 Mg Tab) 1 tab PO Q4 PRN PRN Reason: Pain, moderate (4-7) Stop: 02/19/17 20:31 Last Admin: 02/16/17 21:23 Dose: 1 tab Pantoprazole Sodium (Protonix Ec Tab) 40 mg PO DAILY [facility] Last Admin: 02/18/17 08:47 Dose: 40 mg Propranolol HCl (Inderal) 10 mg PO Q8H [facility] Last Admin: 02/18/17 02:17 Dose: 10 mg Tramadol HCl (Ultram) 50 mg PO Q6 PRN PRN Reason: Pain, moderate (4-7) Ursodiol (Actigall) 300 mg PO BID [facility] Last Admin: 02/18/17 08:47 Dose: 300 mg - Labs Labs: 02/18/17 05:45 02/18/17 05:45 PT 12.7 Seconds (9.8-13.1) 02/17/17 10:05 INR 1.1 (0.9-1.2) 02/17/17 10:05 APTT 35.4 Seconds (25.6-37.1) 02/17/17 10:05 - Respiratory Exam Respiratory Exam: Clear to Ausculation Bilateral - Cardiovascular Exam Cardiovascular Exam: REGULAR RHYTHM, +S1, +S2 Assessment and Plan - Assessment and Plan (Free Text) Assessment: INFECTION AT RIGHT KNEE AREA HYPERTENSION Plan: CONTINUECONTINUE PROPANOLOL, LISINOPRIL AND ANTIBIOTICS FOR SURGERY
[2017-02-18] MEDS: Oxycodone/Acetaminophen 5/325 mg Tab PO PRN (12:42)
--- NOTE | 2017-02-18 14:53 | VASCULAR ---
PROCEDURE: Date of procedure: 02/17/2017 Procedure: 1. Placement of a right arm PICC with ultrasound and fluoroscopic guidance, CPT 94043 2. PICC tip confirmation with spot radiograph and is in the superior vena cava Medications: 1 percent lidocaine Total Fluoro time: 3 seconds Radiation: 0.19 MGy EBL: 2 cc HISTORY: Poor venous access TECHNIQUE: Following informed consent and procedure time-out, the patient was placed supine on the interventional table and the right arm prepped and draped in the usual sterile fashion. Ultrasound showed a patent and compressible right basilic vein. After the skin was anesthetized with lidocaine, the basilic vein was accessed with micro micropuncture technique using ultrasound guidance. A guidewire was then advanced under fluoroscopic guidance into the superior vena cava. An image documenting ultrasound guidance for vascular access was permanently saved. The length of the single-lumen 4 Turkish PICC was trimmed to 33 centimeters and advanced through a peel-away sheath. The PICC was position with tip of PICC confirm a spot radiograph the superior vena cava. The PICC was secured to the patient's skin. The PICC was flushed. A biopatch and sterile dressing was applied. IMPRESSION: Placement of a single-lumen 4 Turkish PICC trimmed to 33 centimeters via right basilic vein. The tip of the PICC is confirmed with spot radiograph and is in the superior vena cava.
[2017-02-19 06:31] LABS: HEMATOCRIT 30.4 % (34.0-47.0); MEAN CELL VOLUME 99.2 fl (81.0-99.0); MEAN CORPUSCULAR HEMOGLOBIN 32.7 pg (27.0-31.0); MEAN CORPUSCULAR HGB CONC 32.9 g/dL (33.0-37.0); RED CELL DISTRIBUTION WIDTH 17.7 % (11.5-14.5); WHITE BLOOD COUNT 5.2 K/uL (4.8-10.8)
[2017-02-19] MEDS: Levothyroxine 75 MCG TAB PO SCH (06:38)
[2017-02-19 06:40] LABS: BLOOD UREA NITROGEN 12 mg/dl (7-17); CALCIUM 8.6 mg/dL (8.4-10.2); CARBON DIOXIDE 25 mmol/L (22-30); CHLORIDE 110 mmol/L (98-107); GFR AFRICAN-AMERICAN > 60; GLUCOSE,RANDOM 90 mg/dL (65-105); SODIUM 141 mmol/l (132-148)
[2017-02-19] MEDS ORDERED: Ropivacaine 0.5% 30ML IV ONE (07:37)
[2017-02-19] MEDS ORDERED: Absorbable Gelatin Sponge Size 100 ONE (07:38)
[2017-02-19] MEDS ORDERED: Thrombin Topical 5,000 IU Spray Kit ONE (07:38)
[2017-02-19] MEDS ORDERED: Phenylephrine 10 mg/ml Inj ONE (07:41)
[2017-02-19] MEDS ORDERED: Etomidate 20 mg/10ml Inj IV ONE (07:41)
[2017-02-19] MEDS ORDERED: Succinylcholine 200 mg/10 ml Inj IV ONE (07:41)
[2017-02-19] MEDS ORDERED: Rocuronium 10 mg/ml (5 ml) ONE (07:41)
[2017-02-19] MEDS ORDERED: Sodium Chloride 0.9% 1,000 ML IV ONE (07:45)
--- NOTE | 2017-02-19 08:34 | RAD ---
PROCEDURE: CHEST RADIOGRAPH, 1 VIEW HISTORY: preop COMPARISON: 12/11/2016 FINDINGS: LUNGS: [id number] PLEURA: No pneumothorax or pleural fluid seen. CARDIOVASCULAR: No radiographic findings to suggest acute or significant cardiovascular disease. OSSEOUS STRUCTURES: No significant abnormalities. VISUALIZED UPPER ABDOMEN: Normal. OTHER FINDINGS: None. IMPRESSION: No active disease. No acute/significant interval changes.
[2017-02-19] MEDS ORDERED: Cefepime (Maxipime) 2 g Inj IVPB ONE (08:45)
[2017-02-19] MEDS ORDERED: Gentamicin 80 mg/2mL Inj. ONE (09:21)
[2017-02-19] MEDS ORDERED: Vancomycin 1 g Inj ONE (09:22)
[2017-02-19] MEDS ORDERED: Neostigmine Methylsulfate 3mg/3ml Syringe IV ONE (09:29)
[2017-02-19 09:30] LABS: FLUID TYPE SYNOVIAL FLUID
[2017-02-19] MEDS ORDERED: ePHEDrine 50 mg/ml Inj ONE (09:51)
[2017-02-19] MEDS ORDERED: Vancomycin 1 g Inj IVPB ONE (10:00)
[2017-02-19 10:28] LABS: SYNOVIAL FLUID TOTAL COUNT 100 (0-0)
[2017-02-19 10:29] LABS: SYNOVIAL FLUID TOTAL COUNT 100 (0-0)
[2017-02-19] MEDS ORDERED: Lactated Ringer's 1,000 ML IV ONE (10:30)
--- NOTE | 2017-02-19 10:33 | PCM.SURG1 ---
Surgeon's Initial Post Op Note - Surgeon's Notes Surgeon: Tin Feather Duster Winder: Marissa Gonzalez PA-c/DR Arvizu, 1st yr podiatry resident Type of Anesthesia: General Endo Anesthesia Administered By: DR Cricket Ag Pre-Operative Diagnosis: septic R TKR Operative Findings: septic R TKR with wound dehiscience. purulence in femoralbone Post-Operative Diagnosis: same Operation Performed: Removal septic TKR/ insertion abio impregnated spacer. patellectomy and laquita procedure. repair patella ligament. anterior and posterior synovectomy. lateral patella release. applx provena wound vac drainage Specimen/Specimens Removed: synovium/prostheises/bone Estimated Blood Loss: EBL {In ML}: 20 Blood Products Given: N/A Drains Used: No Drains Post-Op Condition: Fair Date of Surgery/Procedure: 02/19/17 Time of Surgery/Procedure: 08:50 (time in room/aneathseisa indcution time 7:45)
--- NOTE | 2017-02-19 11:19 | CP.PCM.PN ---
Subjective - Date & Time of Evaluation Date of Evaluation: 02/19/17 Time of Evaluation: 10:00 - Subjective Subjective: NO CHEST PAIN OR SOB Objective - Vital Signs/Intake and Output Vital Signs (last 24 hours): Temp Pulse Resp BP Pulse Ox 98.5 F 72 18 113/71 97 02/19/17 08:09 02/19/17 08:09 02/19/17 08:09 02/19/17 08:09 02/19/17 08:09 Intake and Output: 02/19/17 02/19/17 06:59 18:59 Intake Total 1000 Balance 1000 - Medications Medications: Current Medications Acetaminophen (Tylenol 325mg Tab) 650 mg PO Q6 PRN PRN Reason: Fever >100.4 F Citalopram Hydrobromide (Celexa) 10 mg PO HS [facility] Last Admin: 02/18/17 21:14 Dose: 10 mg Docusate Sodium (Colace) 100 mg PO BID [facility] Last Admin: 02/18/17 16:56 Dose: 100 mg Donepezil HCl (Aricept) 10 mg PO [facility] Last Admin: 02/18/17 21:15 Dose: 10 mg Ferrous Sulfate (Feosol) 325 mg PO DAILY [facility] Last Admin: 02/18/17 08:45 Dose: 325 mg Vancomycin/Sodium Chloride (Vancocin) 1 gm in 200 mls @ 133.333 mls/hr IVPB Q12 [facility] PRN Reason: Protocol Stop: 02/22/17 21:01 Last Admin: 02/18/17 21:56 Dose: 133.333 mls/hr Cefepime HCl 2 gm/ Dextrose 100 mls @ 100 mls/hr IVPB Q12 [facility] Last Admin: 02/18/17 20:34 Dose: 100 mls/hr Levothyroxine Sodium (Synthroid) 75 mcg PO DAILY@0630 [facility] Last Admin: 02/19/17 06:38 Dose: Not Given Lisinopril (Zestril) 2.5 mg PO DAILY [facility] Last Admin: 02/18/17 08:46 Dose: 2.5 mg Magnesium Hydroxide (Milk Of Magnesia) 30 ml PO Q72 PRN PRN Reason: Constipation Memantine (Namenda) 10 mg PO BID [facility] Last Admin: 02/18/17 16:56 Dose: 10 mg Multivitamins/Minerals (Therapeutic-M Tab) 1 tab PO DAILY [facility] Last Admin: 02/18/17 08:45 Dose: 1 tab Mupirocin (Bactroban Ointment) 1 applic TOP DAILY [facility] Last Admin: 02/18/17 09:57 Dose: 1 applic Oxycodone/Acetaminophen (Percocet 5/325 Mg Tab) 1 tab PO Q4 PRN PRN Reason: Pain, moderate (4-7) Stop: 02/19/17 20:31 Last Admin: 02/18/17 12:42 Dose: 1 tab Pantoprazole Sodium (Protonix Ec Tab) 40 mg PO DAILY [facility] Last Admin: 02/18/17 08:47 Dose: 40 mg Propranolol HCl (Inderal) 10 mg PO Q8H [facility] Last Admin: 02/19/17 03:00 Dose: 10 mg Tramadol HCl (Ultram) 50 mg PO Q6 PRN PRN Reason: Pain, moderate (4-7) Ursodiol (Actigall) 300 mg PO BID [facility] Last Admin: 02/18/17 16:56 Dose: 300 mg - Labs Labs: 02/19/17 05:15 02/19/17 05:15 PT 12.7 Seconds (9.8-13.1) 02/17/17 10:05 INR 1.1 (0.9-1.2) 02/17/17 10:05 APTT 30.5 Seconds (25.6-37.1) 02/19/17 05:15 - Respiratory Exam Respiratory Exam: Clear to Ausculation Bilateral - Cardiovascular Exam Cardiovascular Exam: REGULAR RHYTHM, +S2, +S4 - Additional Findings Additional findings: OR NOTES SEEN WITH REMOVAL OF INFECTED TKR AND SPACER INSERTION Assessment and Plan - Assessment and Plan (Free Text) Assessment: S/P REMOVAL OF INFECTED RIGHT KNEE HARDWARE HYPERTENSION Plan: CONTINUE PROPRANOLOL AND LISINOPRIL
[2017-02-19] MEDS ORDERED: HYDROmorphone 0.5 mg/0.5 ml ISec IVP PRN (11:31)
--- NOTE | 2017-02-19 11:33 | CP.PCM.PN ---
Subjective - Date & Time of Evaluation Date of Evaluation: 02/19/17 Time of Evaluation: 11:30 - Subjective Subjective: Intraoperative WBC per HPF much lower than anticipated as patient had exposed hardware and continued wound breakdown after last procedure for open patellar dislocation. Per Dr. Castle, doubt accuracy of low HPF, and proceeded with explant as infection obvious clinically. Objective - Vital Signs/Intake and Output Vital Signs (last 24 hours): Temp Pulse Resp BP Pulse Ox 98.5 F 72 18 113/71 97 02/19/17 08:09 02/19/17 08:09 02/19/17 08:09 02/19/17 08:09 02/19/17 08:09 Intake and Output: 02/19/17 02/19/17 06:59 18:59 Intake Total 1000 Balance 1000 - Medications Medications: Current Medications Acetaminophen (Tylenol 325mg Tab) 650 mg PO Q6 PRN PRN Reason: Fever >100.4 F Citalopram Hydrobromide (Celexa) 10 mg PO HS [facility] Last Admin: 02/18/17 21:14 Dose: 10 mg Docusate Sodium (Colace) 100 mg PO BID [facility] Last Admin: 02/18/17 16:56 Dose: 100 mg Donepezil HCl (Aricept) 10 mg PO HS [facility] Last Admin: 02/18/17 21:15 Dose: 10 mg Ferrous Sulfate (Feosol) 325 mg PO DAILY [facility] Last Admin: 02/18/17 08:45 Dose: 325 mg Vancomycin/Sodium Chloride (Vancocin) 1 gm in 200 mls @ 133.333 mls/hr IVPB Q12 [facility] PRN Reason: Protocol Stop: 02/22/17 21:01 Last Admin: 02/18/17 21:56 Dose: 133.333 mls/hr Cefepime HCl 2 gm/ Dextrose 100 mls @ 100 mls/hr IVPB Q12 [facility] Last Admin: 02/18/17 20:34 Dose: 100 mls/hr Levothyroxine Sodium (Synthroid) 75 mcg PO DAILY@0630 [facility] Last Admin: 02/19/17 06:38 Dose: Not Given Lisinopril (Zestril) 2.5 mg PO DAILY [facility] Last Admin: 02/18/17 08:46 Dose: 2.5 mg Magnesium Hydroxide (Milk Of Magnesia) 30 ml PO Q72 PRN PRN Reason: Constipation Memantine (Namenda) 10 mg PO BID [facility] Last Admin: 02/18/17 16:56 Dose: 10 mg Multivitamins/Minerals (Therapeutic-M Tab) 1 tab PO DAILY [facility] Last Admin: 02/18/17 08:45 Dose: 1 tab Mupirocin (Bactroban Ointment) 1 applic TOP DAILY [facility] Last Admin: 02/18/17 09:57 Dose: 1 applic Oxycodone/Acetaminophen (Percocet 5/325 Mg Tab) 1 tab PO Q4 PRN PRN Reason: Pain, moderate (4-7) Stop: 02/19/17 20:31 Last Admin: 02/18/17 12:42 Dose: 1 tab Pantoprazole Sodium (Protonix Ec Tab) 40 mg PO DAILY [facility] Last Admin: 02/18/17 08:47 Dose: 40 mg Propranolol HCl (Inderal) 10 mg PO Q8H [facility] Last Admin: 02/19/17 03:00 Dose: 10 mg Tramadol HCl (Ultram) 50 mg PO Q6 PRN PRN Reason: Pain, moderate (4-7) Ursodiol (Actigall) 300 mg PO BID [facility] Last Admin: 02/18/17 16:56 Dose: 300 mg - Labs Labs: 02/19/17 05:15 02/19/17 05:15 PT 12.7 Seconds (9.8-13.1) 02/17/17 10:05 INR 1.1 (0.9-1.2) 02/17/17 10:05 APTT 30.5 Seconds (25.6-37.1) 02/19/17 05:15 Assessment and Plan (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
--- NOTE | 2017-02-19 11:37 | PCM.ANESB3 ---
Femoral Nerve Block - Femoral Nerve Block Date of Procedure: 02/19/17 Anesthesiologist: April Pre-Procedure Diagnosis: Infected Right TKA Post-Procedure Diagnosis: Same Procedure Performed: Femoral Nerve Block Right - Procedure Femoral Nerve Block: The procedure was explained to the patient that it is for the post-operative pain management. Consent was obtained after a thorough discussion with the patient regarding the benefits and possible complications of local anesthetic block of the femoral nerve at the inguinal crease area. The patient was brought to the operating room and standard monitors were applied. Time-out was held with the circulating nurse to confirm the correct surgery and the appropriate block. Under general anesthesia, patient was placed in supine position with fully extended lower extremities and the ____right____ groin exposed. The femoral artery was then carefully palpated. The ultrasound transducer was then applied to this area in the transverse plane and the femoral nerve was visualized lateral to the femoral artery and underneath the fascia iliaca. After thorough identification, the inguinal crease area was prepped with Chloraprep. At this point, a #22 gauge Stimuplex 4-inch needle was inserted immediately lateral to the femoral artery pulse at the inguinal crease and advanced perpendicularly. The needle was inserted to the ultrasound transducer in-plane towards the femoral nerve in a [id number] direction. Needle advancement was performed carefully under direct ultrasound visualization. Nerve stimulator was used and twitch of the quadriceps muscle was obtained at current of __0.4___ MA. After negative aspiration, __2___cc of __0.375___% ropivicaine was injected and this was followed with __18____ cc of __0.375____ % ____ ____ropivicaine . Under ultrasound guidance the local anesthetics were observed spreading below fascia iliaca and around the femoral nerve. The needle was removed intact and sterile dressing was applied. The patient had stable vital signs,. The patient tolerated the femoral nerve block well with stable vital signs and was prepared for subsequent surgery.
--- NOTE | 2017-02-19 11:39 | PCM.ANESB2 ---
Popliteal Nerve Block - Popliteal Nerve Block Date of Procedure: 02/19/17 Anesthesiologist: April Pre-Procedure Diagnosis: Infected Right TKA Post-Procedure Diagnosis: Same Procedure Performed: Popliteal Nerve Block Right - Procedure Popliteal Nerve Block: This procedure was explained to the patient that it is for post-operative pain management. Consent was obtained after a thorough discussion with the patient regarding the benefits and possible complications of local anesthetic block of the sciatic nerve at the popliteal level. The patient was brought to the operating room and standard monitors are applied. Time-out was held with the circulating nurse to confirm the correct surgery and the appropriate block. Under general anesthesia, patient's operative leg was gently raised and supported and the groove in between the biceps femoris and vastus lateralis muscles was carefully palpated. The skin approximately 8cm above the popliteal crease was then marked. The ultrasound transducer was then applied to the posterior thigh approximately 8cm above the popliteal crease in the transverse plane and the sciatic nerve before its division was visualized lateral to the popliteal artery and in between the bicep femoris and semimembranosus/ semitendinosus muscles. After identification, the lateral portion of the thigh was prepped with Chloraprep. At this point, a # 21 gauge Stimuplex insulated 4 inch needle was inserted into pre-marked area and advanced in a perpendicular direction. The needle was inserted above the ultrasound transducer in-plane towards the sciatic nerve in a [id number] direction. Needle advancement was performed carefully under direct ultrasound visualization. Nerve stimulator was used and dorsiflexion of the __right___ foot was elicited at a current of __0.4___ MA. After repeated negative aspiration, __2___cc of __0.375___ % __ropivicaine was injected and this was flowed with __13____ cc of __0.375____% ____ropivicaine___ . Under ultrasound guidance the local anesthetics were observed surrounding sciatic nerve . The needle was removed intact . The patient tolerated the popliteal nerve block well with stable vital signs and was subsequently prepared for the surgery.
[2017-02-19] MEDS: Vancomycin 1 gm/NS 200 ml 1 GM/200 ML BAG IVPB SCH ×2 (12:15→22:21)
[2017-02-19 13:23] LABS: FOLATE 7.9 ng/mL
--- NOTE | 2017-02-19 14:06 | CP.PCM.PN ---
Subjective - Date & Time of Evaluation Date of Evaluation: 02/19/17 Time of Evaluation: 13:00 - Subjective Subjective: Pt seen and examined in the Recovery Room post op Remains intubated on Vent Blood transfusion in progress Wound Vac in place with sanguinous discharge Pt is awake, responds to verbal stimuli by nodding Objective - Vital Signs/Intake and Output Vital Signs (last 24 hours): Temp Pulse Resp BP Pulse Ox 96.8 F L 74 10 L 115/56 L 100 02/19/17 12:10 02/19/17 12:10 02/19/17 12:10 02/19/17 12:10 02/19/17 12:10 Intake and Output: 02/19/17 02/19/17 06:59 18:59 Intake Total 1462 Output Total 200 Balance 1262 - Medications Medications: Current Medications Acetaminophen (Tylenol 325mg Tab) 650 mg PO Q6 PRN PRN Reason: Fever >100.4 F Citalopram Hydrobromide (Celexa) 10 mg PO HS [facility] Last Admin: 02/18/17 21:14 Dose: 10 mg Docusate Sodium (Colace) 100 mg PO BID [facility] Last Admin: 02/18/17 16:56 Dose: 100 mg Donepezil HCl (Aricept) 10 mg PO HS [facility] Last Admin: 02/18/17 21:15 Dose: 10 mg Ferrous Sulfate (Feosol) 325 mg PO DAILY [facility] Last Admin: 02/18/17 08:45 Dose: 325 mg Vancomycin/Sodium Chloride (Vancocin) 1 gm in 200 mls @ 133.333 mls/hr IVPB Q12 CAREN PRN Reason: Protocol Stop: 02/22/17 21:01 Last Admin: 02/19/17 12:15 Dose: 175 mls Cefepime HCl 2 gm/ Dextrose 100 mls @ 100 mls/hr IVPB Q12 [facility] Last Admin: 02/18/17 20:34 Dose: 100 mls/hr Levothyroxine Sodium (Synthroid) 75 mcg PO DAILY@0630 [facility] Last Admin: 02/19/17 06:38 Dose: Not Given Lisinopril (Zestril) 2.5 mg PO DAILY [facility] Last Admin: 02/18/17 08:46 Dose: 2.5 mg Magnesium Hydroxide (Milk Of Magnesia) 30 ml PO Q72 PRN PRN Reason: Constipation Memantine (Namenda) 10 mg PO BID [facility] Last Admin: 02/18/17 16:56 Dose: 10 mg Multivitamins/Minerals (Therapeutic-M Tab) 1 tab PO DAILY [facility] Last Admin: 02/18/17 08:45 Dose: 1 tab Mupirocin (Bactroban Ointment) 1 applic TOP DAILY [facility] Last Admin: 02/18/17 09:57 Dose: 1 applic Oxycodone/Acetaminophen (Percocet 5/325 Mg Tab) 1 tab PO Q4 PRN PRN Reason: Pain, moderate (4-7) Stop: 02/19/17 20:31 Last Admin: 02/18/17 12:42 Dose: 1 tab Pantoprazole Sodium (Protonix Ec Tab) 40 mg PO DAILY [facility] Last Admin: 02/18/17 08:47 Dose: 40 mg Propranolol HCl (Inderal) 10 mg PO Q8H [facility] Last Admin: 02/19/17 03:00 Dose: 10 mg Tramadol HCl (Ultram) 50 mg PO Q6 PRN PRN Reason: Pain, moderate (4-7) Ursodiol (Actigall) 300 mg PO BID [facility] Last Admin: 02/18/17 16:56 Dose: 300 mg - Labs Labs: 02/19/17 05:15 02/19/17 05:15 PT 12.7 Seconds (9.8-13.1) 02/17/17 10:05 INR 1.1 (0.9-1.2) 02/17/17 10:05 APTT 30.5 Seconds (25.6-37.1) 02/19/17 05:15 - Constitutional Appears: Non-toxic, Other (Intubated on Vent) - Head Exam Head Exam: NORMAL INSPECTION, NORMOCEPHALIC - Eye Exam Eye Exam: EOMI, Normal appearance Pupil Exam: NORMAL ACCOMODATION - ENT Exam ENT Exam: Mucous Membranes Dry, Normal External Ear Exam - Neck Exam Neck Exam: Full ROM. absent: Meningismus - Respiratory Exam Respiratory Exam: absent: Rales, Wheezes Additional comments: Intubated on Vent - Cardiovascular Exam Cardiovascular Exam: REGULAR RHYTHM, +S1, +S2 - GI/Abdominal Exam GI & Abdominal Exam: Soft, Normal Bowel Sounds. absent: Tenderness - Extremities Exam Extremities Exam: Normal Capillary Refill. 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 Ortho and ID consulted. Pt was started on IV Vanco and Cefepime. Pt underwent Removal of Septic Right TKR and placement of Abx spacer on 02/19. Post op has some resp insufficiency - Pt was not extubated and transferred to ICU for monitoring. 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 Hypothyroidism conrt Levothyroxine (10) DVT prophylaxis Status: Acute SCD Lovenox in am
--- NOTE | 2017-02-19 14:39 | RAD ---
PROCEDURE: Right Knee Radiographs. HISTORY: pt in PACU, s/p removal of prosthesis COMPARISON: 12/12/2016. FINDINGS: BONES: Expected postoperative findings following prosthesis removal. JOINTS: Normal. No osteoarthritis. JOINT EFFUSION: None. OTHER FINDINGS: None. IMPRESSION: Satisfactory postoperative status.
--- NOTE | 2017-02-19 14:41 | CP.CCUPN ---
CCU Subjective - Physician Review Subjective (Free Text): ICU admission and consultation: 86F transferred to ICU post-operatively on MV support with difficulty in extubating manifest by very reduced TVs during SBTs; subsequently placed onto SIMV PS support. On SIMV 10, PS 18, 400ml TV and 50% oxygen, total RR= 13, and VTe was 460 ml. Patient placed onto CPAP 5, PS 8 and 40% oxygen with RR 16, TV range 150 to 230 ml and SPo2 remains at 100%. ETCO2 while on SIMV PS was 34, and on CPAP PS is approx. 46, but she is awake, and intermittently lifts her head off the bed. In OR today , underwent removal of infected R TKR hardware and placement of abx spacer. Dehydration noted pre-op and intra-op received approx. 1 liter saline and ordered for 1 unit PRBCs in the PACU. Other vitals and I/O's reviewed. ALLERGIES: NKDA Home meds: multiple med list reviewed in AMB ORDERS section of [email or web address] ROS: unobtainable, intubated. No other pertinent negs or positives on 10+ system review. PMSFH: Cirrhosis, HTN, Hyperlipidemia, Dementia, bed-bound, Ovarian CA, R TKR approx. 20 yrs ago. All Nursing and physician documentation reviewed to date; no new pertinent info noted relevant to current medical problems. EK/16 study shows NSR, 70/min, no acute ischemic changes. CXR: PACU film reviewed, YESENIA intubation noted ( my interp). MAJOR PROBLEMS: 1. Acute resp insuff: post-operative 2. s/p R TKR Hardware infection and removal 3. Dehydration 4. Chronic disease anemia / Pancytopenia PLAN: 1. ETT needs to re-positioned, unless If ETCO2 remains in acceptable levels on low level CPAP PS now, and as mental status remains in a well-awake and non- distressed state, would extubate. 2. IVF hydration. 3. Watch WBC, RBC and PLT cell lines. S/P 1 unit PRBCs in PACU today. 4. Empiric abx coverage noted. Repeat Vanco levels. 5. Consider holding Psych other meds with [employer] effects: Celexa, Aricept, Namenda. CCU Objective - Vital Signs / Intake & Output Vital Signs (Last 4 hours): Vital Signs Temp Pulse Resp BP Pulse Ox 02/19/17 13:54 97.4 F L 75 16 143/73 100 02/19/17 12:10 96.8 F L 74 10 L 115/56 L 100 02/19/17 11:55 96.5 F L 77 10 L 119/53 L 100 02/19/17 11:40 96.6 F L 79 10 L 112/55 L 100 02/19/17 11:25 96.7 F L 88 10 L 141/67 100 02/19/17 11:10 96.6 F L 92 H 10 L 154/74 H 100 Intake and Output (Last 8hrs): Intake & Output 02/18/17 02/19/17 02/19/17 22:59 06:59 14:59 Intake Total 1462 Output Total 200 Balance 1262 Intake: IV 1175 Blood Product 287 Output: Drainage 200 - Physical Exam Head: Positive for: Normocephalic Pupils: Positive for: PERRL Extroacular Muscles: Positive for: EOMI Conjunctiva: Positive for: Normal. Negative for: Icteric Mouth: Positive for: Moist Mucous Membranes Neck: Negative for: JVD Respiratory/Chest: Positive for: Clear to Auscultation. Negative for: Accessory Muscle Use, Wheezes Cardiovascular: Positive for: Regular Rate and Rhythm, Normal S1, S2, Rub. Negative for: Murmurs Abdomen: Positive for: Normal Bowel Sounds. Negative for: Tenderness, Distention Lower Extremity: Positive for: Other (R knee drain intact with sanguinous drainage.) Neurological: Positive for: Motor Func Grossly Intact, Normal Sensory Function Psychiatric: Positive for: Alert, Normal Affect. Negative for: Agitated - Medications Active Medications: Active Medications Generic Name Dose Route Start Last Admin Trade Name Freq PRN Reason Stop Dose Admin Acetaminophen 650 mg 02/16/17 20:31 Tylenol 325mg Tab PO Q6 PRN Fever >100.4 F Citalopram Hydrobromide 10 mg 02/17/17 22:00 02/18/17 21:14 Celexa PO 10 mg HS CAREN Administration Docusate Sodium 100 mg 02/17/17 09:00 02/18/17 16:56 Colace PO 100 mg BID CAREN Administration Donepezil HCl 10 mg 02/17/17 22:00 02/18/17 21:15 Aricept PO 10 mg HS CAREN Administration Ferrous Sulfate 325 mg 02/18/17 09:00 02/18/17 08:45 Feosol PO 325 mg DAILY [facility] Administration Vancomycin/Sodium Chloride 1 gm in 200 mls @ 133.333 mls/hr 02/17/17 21:00 12:15 Vancocin IVPB 02/22/17 21:01 175 mls Q12 CAREN Administration Protocol Cefepime HCl 2 gm/ Dextrose 100 mls @ 100 mls/hr 02/17/17 21:00 02/18/17 20: 34 IVPB 100 mls/hr Q12 CAREN Administration Levothyroxine Sodium 75 mcg 02/18/17 06:30 02/19/17 06:38 Synthroid PO Not Given DAILY@0630 CAREN Lisinopril 2.5 mg 02/18/17 09:00 02/18/17 08:46 Zestril PO 2.5 mg DAILY CAREN Administration Magnesium Hydroxide 30 ml 02/17/17 10:12 Milk Of Magnesia PO Q72 PRN Constipation Memantine 10 mg 02/17/17 17:00 02/18/17 16:56 Namenda PO 10 mg BID CAREN Administration Multivitamins/Minerals 1 tab 02/18/17 09:00 02/18/17 08:45 Therapeutic-M Tab PO 1 tab DAILY [facility]EN Administration Mupirocin 1 applic 02/18/17 09:00 02/18/17 09:57 Bactroban Ointment TOP 1 applic DAILY [facility]EN Administration Oxycodone/Acetaminophen 1 tab 02/16/17 20:30 02/18/17 12:42 Percocet 5/325 Mg Tab PO 02/19/17 20:31 1 tab Q4 PRN Administration Pain, moderate (4-7) Pantoprazole Sodium 40 mg 02/17/17 09:00 02/18/17 08:47 Protonix Ec Tab PO 40 mg DAILY [facility]EN Administration Propranolol HCl 10 mg 02/17/17 10:15 02/19/17 03:00 Inderal PO 10 mg Q8H CAREN Administration Tramadol HCl 50 mg 02/17/17 10:12 Ultram PO Q6 PRN Pain, moderate (4-7) Ursodiol 300 mg 02/17/17 17:00 02/18/17 16:56 Actigall PO 300 mg BID CAREN Administration - Patient Studies Lab Studies: Microbiology Studies 02/19/17 09:09 Gram Stain - Final Synovial Fluid 02/19/17 09:28 Gram Stain - Final Synovial Fluid 02/16/17 20:57 Blood Culture - Preliminary Blood-Venous NO GROWTH AFTER 48 HOURS 02/16/17 20:30 Blood Culture - Preliminary Blood-Venous NO GROWTH AFTER 48 HOURS Lab Studies 02/19/17 02/19/17 02/19/17 Range/Units 09:28 09:28 06:39 WBC (4.8-10.8) K/uL RBC (3.80-5.20) Mil/uL Hgb (12.0-16.0) g/dL Hct (34.0-47.0) % MCV (81.0-99.0) fl MCH (27.0-31.0) pg MCHC (33.0-37.0) g/dL RDW (11.5-14.5) % Plt Count (130-400) K/uL Retic Count (0.5-1.5) % APTT (25.6-37.1) Seconds Sodium (132-148) mmol/l Potassium (3.6-5.0) MMOL/L Chloride (98-107) mmol/L Carbon Dioxide (22-30) mmol/L Anion Gap (10-20) BUN (7-17) mg/dl Creatinine (0.7-1.2) mg/dL Est GFR ( Amer) Est GFR (Non-Af Amer) POC Glucose (mg/dL) 95 (65-110) mg/dL Random Glucose (65-105) mg/dL Calcium (8.4-10.2) mg/dL Ferritin (11.1-264.0) ng/Ml Vitamin B12 (239-931) pg/mL Folate ng/mL Fluid Type Synovial fluid Synovial fluid Synovial WBC 89.0 238.0 H (0.0-150.0) /mm3 Synovial RBC 9851.0 H 66699.0 H (0.0-0.0) /mm3 Synovial Neutrophils 19.0 H 71.0 H (0-0) % Synovial Lymphocytes 69.0 H 22.0 H (0-0) % Synov Monos/Macrophage 12 H 7 H (0-0) % Synovial Fluid Comment Moderately bloody Turbid Blood Type Antibody Screen Crossmatch BBK History Checked 1002/19/17 02/19/17 Range/Units 06:17 05:15 05:15 WBC (4.8-10.8) K/uL RBC (3.80-5.20) Mil/uL Hgb (12.0-16.0) g/dL Hct (34.0-47.0) % MCV (81.0-99.0) fl MCH (27.0-31.0) pg MCHC (33.0-37.0) g/dL RDW (11.5-14.5) % Plt Count (130-400) K/uL Retic Count 2.6 H (0.5-1.5) % APTT 30.5 (25.6-37.1) Seconds Sodium 141 (132-148) mmol/l Potassium 4.0 (3.6-5.0) MMOL/L Chloride 110 H (98-107) mmol/L Carbon Dioxide 25 (22-30) mmol/L Anion Gap 10 (10-20) BUN 12 (7-17) mg/dl Creatinine 0.8 (0.7-1.2) mg/dL Est GFR ( Amer) > 60 Est GFR (Non-Af Amer) > 60 POC Glucose (mg/dL) (65-110) mg/dL Random Glucose 90 (65-105) mg/dL Calcium 8.6 (8.4-10.2) mg/dL Ferritin 71.4 (11.1-264.0) ng/Ml Vitamin B12 722 (239-931) pg/mL Folate 7.9 ng/mL Fluid Type Synovial WBC (0.0-150.0) /mm3 Synovial RBC (0.0-0.0) /mm3 Synovial Neutrophils (0-0) % Synovial Lymphocytes (0-0) % Synov Monos/Macrophage (0-0) % Synovial Fluid Comment Blood Type Antibody Screen Crossmatch BBK History Checked 02/19/17 02/18/17 02/18/17 Range/Units 05:15 21:26 15:42 WBC 5.2 (4.8-10.8) K/uL RBC 3.06 L (3.80-5.20) Mil/uL Hgb 10.0 L (12.0-16.0) g/dL Hct 30.4 L (34.0-47.0) % MCV 99.2 H (81.0-99.0) fl MCH 32.7 H (27.0-31.0) pg MCHC 32.9 L (33.0-37.0) g/dL RDW 17.7 H (11.5-14.5) % Plt Count 101 L (130-400) K/uL Retic Count (0.5-1.5) % APTT (25.6-37.1) Seconds Sodium (132-148) mmol/l Potassium (3.6-5.0) MMOL/L Chloride (98-107) mmol/L Carbon Dioxide (22-30) mmol/L Anion Gap (10-20) BUN (7-17) mg/dl Creatinine (0.7-1.2) mg/dL Est GFR ( Amer) Est GFR (Non-Af Amer) POC Glucose (mg/dL) 132 H 99 (65-110) mg/dL Random Glucose (65-105) mg/dL Calcium (8.4-10.2) mg/dL Ferritin (11.1-264.0) ng/Ml Vitamin B12 (239-931) pg/mL Folate ng/mL Fluid Type Synovial WBC (0.0-150.0) /mm3 Synovial RBC (0.0-0.0) /mm3 Synovial Neutrophils (0-0) % Synovial Lymphocytes (0-0) % Synov Monos/Macrophage (0-0) % Synovial Fluid Comment Blood Type Antibody Screen Crossmatch BBK History Checked 02/17/17 Range/Units 08:25 WBC (4.8-10.8) K/uL RBC (3.80-5.20) Mil/uL Hgb (12.0-16.0) g/dL Hct (34.0-47.0) % MCV (81.0-99.0) fl MCH (27.0-31.0) pg MCHC (33.0-37.0) g/dL RDW (11.5-14.5) % Plt Count (130-400) K/uL Retic Count (0.5-1.5) % APTT (25.6-37.1) Seconds Sodium (132-148) mmol/l Potassium (3.6-5.0) MMOL/L Chloride (98-107) mmol/L Carbon Dioxide (22-30) mmol/L Anion Gap (10-20) BUN (7-17) mg/dl Creatinine (0.7-1.2) mg/dL Est GFR ( Amer) Est GFR (Non-Af Amer) POC Glucose (mg/dL) (65-110) mg/dL Random Glucose (65-105) mg/dL Calcium (8.4-10.2) mg/dL Ferritin (11.1-264.0) ng/Ml Vitamin B12 (239-931) pg/mL Folate ng/mL Fluid Type Synovial WBC (0.0-150.0) /mm3 Synovial RBC (0.0-0.0) /mm3 Synovial Neutrophils (0-0) % Synovial Lymphocytes (0-0) % Synov Monos/Macrophage (0-0) % Synovial Fluid Comment Blood Type O POSITIVE Antibody Screen Negative Crossmatch See Detail BBK History Checked Patient has bt Laboratory Results - last 24 hr 02/17/17 02/18/17 02/18/17 08:25 15:42 21:26 WBC RBC Hgb Hct MCV MCH MCHC RDW Plt Count Retic Count APTT Sodium Potassium Chloride Carbon Dioxide Anion Gap BUN Creatinine Est GFR ( Amer) Est GFR (Non-Af Amer) POC Glucose (mg/dL) 99 132 H Random Glucose Calcium Ferritin Vitamin B12 Folate Fluid Type Synovial WBC Synovial RBC Synovial Neutrophils Synovial Lymphocytes Synov Monos/Macrophage Synovial Fluid Comment Blood Type O POSITIVE Antibody Screen Negative Crossmatch See Detail BBK History Checked Patient has bt 02/19/17 02/19/17 02/19/17 05:15 05:15 05:15 WBC 5.2 RBC 3.06 L Hgb 10.0 L Hct 30.4 L MCV 99.2 H MCH 32.7 H MCHC 32.9 L RDW 17.7 H Plt Count 101 L Retic Count APTT 30.5 Sodium 141 Potassium 4.0 Chloride 110 H Carbon Dioxide 25 Anion Gap 10 BUN 12 Creatinine 0.8 Est GFR ( Amer) > 60 Est GFR (Non-Af Amer) > 60 POC Glucose (mg/dL) Random Glucose 90 Calcium 8.6 Ferritin 71.4 Vitamin B12 722 Folate 7.9 Fluid Type Synovial WBC Synovial RBC Synovial Neutrophils Synovial Lymphocytes Synov Monos/Macrophage Synovial Fluid Comment Blood Type Antibody Screen Crossmatch BBK History Checked 1002/19/17 02/19/17 06:17 06:39 09:28 WBC RBC Hgb Hct MCV MCH MCHC RDW Plt Count Retic Count 2.6 H APTT Sodium Potassium Chloride Carbon Dioxide Anion Gap BUN Creatinine Est GFR ( Amer) Est GFR (Non-Af Amer) POC Glucose (mg/dL) 95 Random Glucose Calcium Ferritin Vitamin B12 Folate Fluid Type Synovial fluid Synovial WBC 238.0 H Synovial RBC 89641.0 H Synovial Neutrophils 71.0 H Synovial Lymphocytes 22.0 H Synov Monos/Macrophage 7 H Synovial Fluid Comment Turbid Blood Type Antibody Screen Crossmatch BBK History Checked 02/19/17 09:28 WBC RBC Hgb Hct MCV MCH MCHC RDW Plt Count Retic Count APTT Sodium Potassium Chloride Carbon Dioxide Anion Gap BUN Creatinine Est GFR ( Amer) Est GFR (Non-Af Amer) POC Glucose (mg/dL) Random Glucose Calcium Ferritin Vitamin B12 Folate Fluid Type Synovial fluid Synovial WBC 89.0 Synovial RBC 9851.0 H Synovial Neutrophils 19.0 H Synovial Lymphocytes 69.0 H Synov Monos/Macrophage 12 H Synovial Fluid Comment Moderately bloody Blood Type Antibody Screen Crossmatch BBK History Checked Fingerstick Blood Sugar Results: 95 Review of Systems - Review of Systems Systems not reviewed;Unavailable: Intubated Critical Care Progress Note - Ventilator Checklist Head of Bed 30 Degrees: Yes Daily Sedation Vacation: Yes Daily Assessment of Readiness to Wean: Yes Daily Spontaneous Breathing Trial: Yes PUD Prophalyxis: Yes DVT Prophylaxis: Yes Oral Care with Chlorhexidine Gluconate {CHG}: Yes - Vent Settings MODE:: IMV TIDAL VOLUME:: 400 RESP RATE:: 10 FIO2:: 50 PEEP:: 5 PRESSURE SUPPORT:: 18 - Extremities/Vascular Does the Patient have a Central Venous Catheter?: No Does the Patient need a Central Venous Catheter?: No Does the Patient have a Mancini Catheter?: Yes Does the Patient need a Mancini Catheter?: Yes - Restraints Justification for Restraints: High risk for self extubation, High risk for removing IV access, High risk for harming self - Prophylaxis DVT Prophylaxis DVT: SCDs - Nutrition Nutrition: Nutrition Category Date Time Status Dysphagia/Modified Consistency Diet [DIET] Diets 02/19/17 Dinner Active NPO Diet [DIET] Diets 02/19/17 Breakfast Active
--- NOTE | 2017-02-19 15:17 | OP ---
PROCEDURE DATE: 02/19/2017 PREOPERATIVE DIAGNOSIS: Septic right total knee replacement arthroplasty. POSTOPERATIVE DIAGNOSES: 1. Septic right total knee replacement arthroplasty. 2. Anterior and posterior synovitis. 3. Rule out osteomyelitis. PROCEDURES: 1: Revision/removal of right total knee replacement arthroplasty with insertion of antibiotic-impregnated spacer. 2. Patellectomy and reconstruction with David procedure. 3. Repair/reinforcement of patellar ligament. 4. Anterior and posterior synovectomy. 5. Wound VAC. 6. Excision of skin and subcutaneous tissue with closure, application of Prevena wound VAC. SURGEON: Prince Castle MD. CLAIMS CUSTOMER SERVICE REPRESENTATIVE: Carlitos Gonzalez, certified registered PA-C. SECOND SUPERVISOR ELECTRONICS PROCESSING: Dr. Stewart, first year of podiatry resident. TYPE OF ANESTHESIA: Spinal and general anesthesia. ANESTHESIA ADMINISTERED BY: Crciket Chen M.D. COMPLICATIONS: None. DRAINS: None. OPERATIVE INDICATION: Rachel Caraballo is a woman who is referred to me by Dr. Krishnamurthy. She had a total knee replacement approximately 10 to 12 years ago. The patient, because of poor wound management at the nursing facility she was in, developed an erosion and subluxation of the patella. The patella was revised and realigned and the wound was again closed. Again, with poor wound management in the nursing facility, the wound dehisced and the knee became septic. Patient was seen most recently and referred to Plastic Surgery. Plastics evaluated the patient. Patient was sent to [facility]. The patient was diagnosed with septic knee. Discussion was made about amputation. Resident, discussed the case with me. Infectious Disease noted that the knee was grossly septic. We arranged for immediate transport. Patient was stabilized after presentation at [facility]. Pros, cons, risks, and benefits of component and hardware removal and insertion of antibiotic-impregnated spacer was discussed. Because of the poor quality of the patella and bone, the concept of patellectomy, patellar ligament, patellar tendon reconstruction was discussed. DESCRIPTION OF PROCEDURE: After having obtained informed consent in the above fashion, after thoroughly discussing the pros, cons, risks and benefits, possibility of recurrent infection, possibility of amputation, possibility of nerve injury and stiffness, thromboembolic disease, even are discussed, the patient's family wished her to have the procedure since it has been described to them by the Infectious Disease Service at [place] as life saving. After exsanguinating the limb using a 6-inch Esmarch bandage, the tourniquet, which had been applied, was inflated to 225 mmHg. An incision was described 2 fingerbreadths above the incision. Skin incision was carried down through the skin and subcutaneous tissue and ellipse of skin is removed. The patella was everted, the knee is flexed, the knee replacement was dislocated. Patella insert was removed. There was found to be gross purulence with compromise of the femoral and tibial bone. An extensive anterior and posterior synovectomy was set. Specimen was sent for wound biopsy and culture. Two different aliquots were sent for Gram stain, aerobic, anaerobic, AFB, and fungal cultures. This having been accomplished, the attention was turned to component removal. The femur was first addressed. The interface between the cement and bone was developed using the desirae and then the AcuDriver instrument. This accomplished on the femoral side and on the tibial side. The femoral component is removed. Further synovectomy was accomplished. Bone specimen is sent for tibial bone biopsy. This having been accomplished, the wound was thoroughly irrigated. Attention is turned to the tibia and again the interface between the tibia and the cement and the tibial plate is developed. This having been accomplished, the tibial plate is removed. The cement is removed. At this point in time, patellectomy was accomplished by everting the patella. The patella was enucleated and David procedure was accomplished by inverting the patella with inverted sutures of #1 FiberWire. Anterior and posterior synovectomy having been accomplished, the components having been accomplished, the wound was thoroughly irrigated. Anterior and posterior synovectomy having been accomplished, the bone is prepared, Pulsavac, and a size small antibiotic-impregnated spacer is introduced and lightly cemented. Antibiotic-impregnated pellets were employed. The wound was thoroughly irrigated. Patellar ligament was repaired. After patellectomy and David procedure with a PEEK anchor and the patellar ligament is repaired to the tibial tuberosity. Closure was in layers with FiberWire for the medial arthrotomy, followed by 2-0 Vicryl and a combination of nylon and morris for skin. The Prevena wound VAC is applied. It is fitted, customized, and the Prevena VAC is applied. René Toney compression and knee immobilizers were applied. The stat Gram stain results are obtained in light of the clinical presentation. Please refer to the notes in [facility] and in [facility] where the patient was transferred from. The removal of the components was definitely mandated with possibility of amputation discussed as well. René Toney compression and knee immobilizers were applied. Prince Castle MD
--- NOTE | 2017-02-19 16:15 | RAD ---
HISTORY: Post intubation. Technique: Single view portable semi erect @ 13:00 COMPARISON: February 19, 2017. Time of the most recent examination: 07:05 FINDINGS: LUNGS: No active pulmonary disease. PLEURA: No significant pleural effusion identified, no pneumothorax apparent. CARDIOVASCULAR: No radiographic findings to suggest acute or significant cardiovascular disease. OSSEOUS STRUCTURES: No significant abnormalities. VISUALIZED UPPER ABDOMEN: Normal. OTHER FINDINGS: Low lying endotracheal tube. The endotracheal tube tip is in the right mainstem bronchus. The tube should be retracted approximately 9 cm for optimal placement. IMPRESSION: No active pulmonary disease. Low lying endotracheal tube, the tip is situated in the distal right mainstem bronchus.
[2017-02-19] MEDS: Dextrose 5%/0.45% NS 1,000 ML IV SCH (18:03)
[2017-02-19] MEDS: Cefepime 2 GM in Dextrose 5% In Water 100 ML IVPB SCH ×2 (21:13→21:15)
[2017-02-20 05:01] LABS: BASO # 0.1 K/uL (0.0-0.2); BASO % 1.3 % (0.0-2.0); EOS # 0.2 K/uL (0.0-0.7); EOS % 2.6 % (0.0-4.0); HEMATOCRIT 28.6 % (34.0-47.0); LYMPH # 1.2 K/uL (1.0-4.3); LYMPH % 16.5 % (20.0-40.0); MEAN CELL VOLUME 98.3 fl (81.0-99.0); MEAN CORPUSCULAR HGB CONC 32.5 g/dL (33.0-37.0); MEAN PLATELET VOLUME 9.1 fl (7.2-11.7); MONO # 0.8 K/uL (0.0-0.8); MONO % 11.6 % (0.0-10.0); NEUT # 4.8 K/uL (1.8-7.0); RED CELL DISTRIBUTION WIDTH 17.7 % (11.5-14.5); WHITE BLOOD COUNT 7.1 K/uL (4.8-10.8)
[2017-02-20 05:11] LABS: BLOOD UREA NITROGEN 13 mg/dl (7-17); CALCIUM 8.8 mg/dL (8.4-10.2); CARBON DIOXIDE 23 mmol/L (22-30); CHLORIDE 110 mmol/L (98-107); GFR AFRICAN-AMERICAN > 60; GLUCOSE,RANDOM 153 mg/dL (65-105); POTASSIUM 3.7 MMOL/L (3.6-5.0); SODIUM 140 mmol/l (132-148)
[2017-02-20] MEDS: Dextrose 5%/0.45% NS 1,000 ML IV SCH (06:18)
[2017-02-20] MEDS: Cefepime 2 GM in Dextrose 5% In Water 100 ML IVPB SCH (08:23)
[2017-02-20] MEDS: Pantoprazole 40 mg EC Tab PO SCH (08:35)
[2017-02-20] MEDS: Levothyroxine 75 MCG TAB PO SCH (08:35)
[2017-02-20] MEDS: Multivitamin With Minerals Tab PO SCH (08:35)
--- NOTE | 2017-02-20 09:11 | RAD ---
HISTORY: hypercarbia COMPARISON: 02/19/2017 FINDINGS: LUNGS: Right basilar linear scar/ atelectasis. No infiltrate. PLEURA: No significant pleural effusion identified, no pneumothorax apparent. CARDIOVASCULAR: Normal. OSSEOUS STRUCTURES: No significant abnormalities. VISUALIZED UPPER ABDOMEN: Normal. OTHER FINDINGS: None. IMPRESSION: No active disease.
[2017-02-20] MEDS: Vancomycin 1 gm/NS 200 ml 1 GM/200 ML BAG IVPB SCH ×2 (09:45→21:12)
[2017-02-20] MEDS ORDERED: Sodium Chloride 0.9% 500 ML IV ONE (10:15)
--- NOTE | 2017-02-20 11:41 | CP.PCM.PN ---
Subjective - Date & Time of Evaluation Date of Evaluation: 02/20/17 Time of Evaluation: 11:20 - Subjective Subjective: NO CHEST PAIN OR SOB Objective - Vital Signs/Intake and Output Vital Signs (last 24 hours): Temp Pulse Resp BP Pulse Ox 99.4 F 68 21 78/37 L 98 02/20/17 08:00 02/20/17 10:00 02/20/17 10:00 02/20/17 10:00 02/20/17 10:00 Intake and Output: 02/20/17 02/20/17 06:59 18:59 Intake Total 1200 400 Output Total 100 Balance 1100 400 - Medications Medications: Current Medications Acetaminophen (Tylenol 325mg Tab) 650 mg PO Q6 PRN PRN Reason: Fever >100.4 F Citalopram Hydrobromide (Celexa) 10 mg PO HS [facility] Last Admin: 02/18/17 21:14 Dose: 10 mg Docusate Sodium (Colace) 100 mg PO BID [facility] Last Admin: 02/20/17 08:33 Dose: Not Given Donepezil HCl (Aricept) 10 mg PO [facility] Last Admin: 02/18/17 21:15 Dose: 10 mg Ferrous Sulfate (Feosol) 325 mg PO BID [facility] Vancomycin/Sodium Chloride (Vancocin) 1 gm in 200 mls @ 133.333 mls/hr IVPB Q12 [facility] PRN Reason: Protocol Stop: 02/22/17 21:01 Last Admin: 02/20/17 09:45 Dose: 133.333 mls/hr Cefepime HCl 2 gm/ Dextrose 50 mls @ 50 mls/hr IVPB Q12 [facility] Sodium Chloride (Sodium Chloride 0.9%) 1,000 mls @ 100 mls/hr IV .Q10H [facility] Stop: 02/21/17 10:15 Ketorolac Tromethamine (Toradol) 15 mg IVP Q6 PRN PRN Reason: Pain, Mild (1-3) Levothyroxine Sodium (Synthroid) 75 mcg PO DAILY@0630 [facility] Last Admin: 02/20/17 08:35 Dose: 75 mcg Lisinopril (Zestril) 2.5 mg PO DAILY [facility] Last Admin: 02/18/17 08:46 Dose: 2.5 mg Magnesium Hydroxide (Milk Of Magnesia) 30 ml PO Q72 PRN PRN Reason: Constipation Memantine (Namenda) 10 mg PO BID [facility] Last Admin: 02/19/17 16:27 Dose: Not Given Multivitamins/Minerals (Therapeutic-M Tab) 1 tab PO DAILY [facility] Last Admin: 02/20/17 08:35 Dose: Not Given Mupirocin (Bactroban Ointment) 1 applic TOP DAILY [facility] Last Admin: 02/18/17 09:57 Dose: 1 applic Ondansetron HCl (Zofran Inj) 4 mg IVP Q6 PRN PRN Reason: Nausea/Vomiting Last Admin: 02/20/17 09:41 Dose: 4 mg Pantoprazole Sodium (Protonix Ec Tab) 40 mg PO DAILY [facility] Last Admin: 02/20/17 08:35 Dose: Not Given Propranolol HCl (Inderal) 10 mg PO Q8H [facility] Last Admin: 02/20/17 04:20 Dose: 10 mg Ursodiol (Actigall) 300 mg PO BID [facility] Last Admin: 02/20/17 08:32 Dose: Not Given - Labs Labs: 02/20/17 04:20 02/20/17 04:20 PT 12.7 Seconds (9.8-13.1) 02/17/17 10:05 INR 1.1 (0.9-1.2) 02/17/17 10:05 APTT 30.5 Seconds (25.6-37.1) 02/19/17 05:15 - Respiratory Exam Respiratory Exam: Clear to Ausculation Bilateral - Cardiovascular Exam Cardiovascular Exam: REGULAR RHYTHM, +S1, +S2 - Additional Findings 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
--- NOTE | 2017-02-20 12:05 | CP.PCM.PN ---
Subjective - Date & Time of Evaluation Date of Evaluation: 02/20/17 Time of Evaluation: 11:30 - Subjective Subjective: Pt is now extubated and doing well Son at bedside BP low normal Pain controlled no fever Pt denies CP no SOB no cough has sl abd discomfort ? hiccups Objective - Vital Signs/Intake and Output Vital Signs (last 24 hours): Temp Pulse Resp BP Pulse Ox 99.9 F H 63 22 72/45 L 100 02/20/17 11:57 02/20/17 11:57 02/20/17 11:57 02/20/17 11:57 02/20/17 11:57 Intake and Output: 02/20/17 02/20/17 06:59 18:59 Intake Total 1200 400 Output Total 100 Balance 1100 400 - Medications Medications: Current Medications Acetaminophen (Tylenol 325mg Tab) 650 mg PO Q6 PRN PRN Reason: Fever >100.4 F Citalopram Hydrobromide (Celexa) 10 mg PO HS [facility] Last Admin: 02/18/17 21:14 Dose: 10 mg Docusate Sodium (Colace) 100 mg PO BID [facility] Last Admin: 02/20/17 08:33 Dose: Not Given Donepezil HCl (Aricept) 10 mg PO HS [facility] Last Admin: 02/18/17 21:15 Dose: 10 mg Ferrous Sulfate (Feosol) 325 mg PO BID [facility] Vancomycin/Sodium Chloride (Vancocin) 1 gm in 200 mls @ 133.333 mls/hr IVPB Q12 [facility] PRN Reason: Protocol Stop: 02/22/17 21:01 Last Admin: 02/20/17 09:45 Dose: 133.333 mls/hr Cefepime HCl 2 gm/ Dextrose 50 mls @ 50 mls/hr IVPB Q12 [facility] Sodium Chloride (Sodium Chloride 0.9%) 1,000 mls @ 100 mls/hr IV .Q10H [facility] Stop: 02/21/17 10:15 Ketorolac Tromethamine (Toradol) 15 mg IVP Q6 PRN PRN Reason: Pain, Mild (1-3) Levothyroxine Sodium (Synthroid) 75 mcg PO DAILY@0630 [facility] Last Admin: 02/20/17 08:35 Dose: 75 mcg Magnesium Hydroxide (Milk Of Magnesia) 30 ml PO Q72 PRN PRN Reason: Constipation Memantine (Namenda) 10 mg PO BID [facility] Last Admin: 02/19/17 16:27 Dose: Not Given Multivitamins/Minerals (Therapeutic-M Tab) 1 tab PO DAILY [facility] Last Admin: 02/20/17 08:35 Dose: Not Given Mupirocin (Bactroban Ointment) 1 applic TOP DAILY [facility] Last Admin: 02/18/17 09:57 Dose: 1 applic Ondansetron HCl (Zofran Inj) 4 mg IVP Q6 PRN PRN Reason: Nausea/Vomiting Last Admin: 02/20/17 09:41 Dose: 4 mg Pantoprazole Sodium (Protonix Ec Tab) 40 mg PO DAILY [facility] Last Admin: 02/20/17 08:35 Dose: Not Given Propranolol HCl (Inderal) 10 mg PO Q8H [facility] Last Admin: 02/20/17 04:20 Dose: 10 mg Ursodiol (Actigall) 300 mg PO BID [facility] Last Admin: 02/20/17 08:32 Dose: Not Given - Labs Labs: 02/20/17 04:20 02/20/17 04:20 PT 12.7 Seconds (9.8-13.1) 02/17/17 10:05 INR 1.1 (0.9-1.2) 02/17/17 10:05 APTT 30.5 Seconds (25.6-37.1) 02/19/17 05:15 - Constitutional Appears: Non-toxic, not in distress, now extubated - Head Exam Head Exam: NORMAL INSPECTION, NORMOCEPHALIC - Eye Exam Eye Exam: EOMI, Normal appearance Pupil Exam: NORMAL ACCOMODATION - ENT Exam ENT Exam: Mucous Membranes Dry, Normal External Ear Exam - Neck Exam Neck Exam: Full ROM. absent: Meningismus - Respiratory Exam Respiratory Exam: absent: Rales, Wheezes Additional comments: - Cardiovascular Exam Cardiovascular Exam: REGULAR RHYTHM, +S1, +S2 - GI/Abdominal Exam GI & Abdominal Exam: sl distended, Soft, sl hyperactive Bowel Sounds. absent: Tenderness - Extremities Exam Extremities Exam: Normal Capillary Refill. 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 Ortho and ID consulted. Pt was started on IV Vanco and Cefepime. Pt underwent Removal of Septic Right TKR and placement of Abx spacer on 02/19. Post op developed resp insufficiency, she was transferred to ICU for monitoring. Pt was extubated this am. 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 ago Status: Chronic (3) Acute respiratory insufficiency, postoperative, now resolved Status: Acute may be sec to anesthesia , analgesics Pt was not extubated post op- today , pt was extubated and doing well In ICU for close monitoring (4) Pancytopenia Status: Chronic prob sec to Cirrhosis, cannot r/o MDS Hematology consulted monitor closely Pt was transfused 1 unit PRBC post op will transfuse 1 more unit today (5) DM2 (diabetes mellitus, type 2) Status: Chronic Accucheck with coverage 6) Dementia Status: Chronic Pt is on Aricept and Namenda (7) HTN (hypertension) Status: Chronic hold Lisinopril due to low BP (8) Liver cirrhosis Status: Chronic hold Propranolol as BP low 9. Hypothyroidism cont Levothyroxine 10. Constipation start Dulcolax cont Colace CXR show increase abd gas ? ileus, will monitor (11) DVT prophylaxis Status: Acute SCD Lovenox - as recommended by Dr Gerard monitor Platelet closely due to sl thrombocytopenia
[2017-02-20] MEDS ORDERED: Bisacodyl 5mg EC Tab PO PRN (12:09)
--- NOTE | 2017-02-20 13:16 | CP.CCUPN ---
CCU Subjective - Physician Review Subjective (Free Text): Awake and alert, no distress since extubation yesterday afternoon Post-op in ICU. SPo2 100% on 3 LPM NC, doing Incentive [place] with acceptable measures. + nausea this AM, no vomiting noted, Knee drain showing dark brown drainage of approx 100 cc overnight, total output so far approx 500ml volume. On D5-half saline at 100ml/hr, was briefly hypotensive this AM but no hypoperfusion impact , denies any abd pain, had BM yesterday. Todays CXR reviewed and shows clear lung sampson with bowel distention pushing up on diaphragms, especially R side. She is passing flatus, SCDs on over LLE only. Other vitals and I/O's reviewed. ROS: unobtainable, intubated. No other pertinent negs or positives on + system review. PMSFH: Cirrhosis, HTN, Hyperlipidemia, Dementia, bed-bound, Ovarian CA, R TKR approx. 20 yrs ago. All Nursing and physician documentation reviewed to date; no new pertinent info noted relevant to current medical problems. MAJOR PROBLEMS: 1. Acute resp insuff: post-operative 2. s/p R TKR Hardware infection and removal 3. Dehydration 4. Chronic disease anemia / Pancytopenia PLAN: 1. Discuseed with PMD, who discussed with Hematolgy: will start Lovenox for DVT prx. Wacth platelet counts. 2. PRBCs if still hypotenisve. 3. Check KUB / abdominal flate plate film; continue stool softeners. laxatives prn, will give Dulcolax [place] now. 4. Empiric abx coverage noted. Repeat Vanco levels. 5. Psych meds with CELL SUPPORT OPERATOR effects: Celexa, Aricept, Namenda onhold due to excessive sedation yesterday. Could resume if needed. 6. PT eval for OOB. CCU Objective - Vital Signs / Intake & Output Vital Signs (Last 4 hours): Vital Signs Temp Pulse Resp BP Pulse Ox 02/20/17 11:57 99.9 F H 63 22 72/45 L 100 02/20/17 10:00 68 21 78/37 L 98 Intake and Output (Last 8hrs): Intake & Output 02/19/17 02/20/17 02/20/17 22:59 06:59 14:59 Intake Total 076 536 5043 Output Total 600 100 Balance -[phone] Intake: IV 300 800 300 Intake, Piggyback 100 800 Output: Drainage 600 100 Right Knee 600 100 Other: # Voids Urine, Voided 1 1 1 - Physical Exam Head: Positive for: Normocephalic Pupils: Positive for: PERRL Extroacular Muscles: Positive for: EOMI Conjunctiva: Positive for: Normal. Negative for: Icteric Mouth: Positive for: Moist Mucous Membranes Neck: Negative for: JVD Respiratory/Chest: Positive for: Clear to Auscultation. Negative for: Accessory Muscle Use, Wheezes Cardiovascular: Positive for: Regular Rate and Rhythm, Normal S1, S2, Rub. Negative for: Murmurs Abdomen: Positive for: Normal Bowel Sounds. Negative for: Tenderness, Distention Lower Extremity: Positive for: Other (R knee dressing in place. SCD on LLE. ) Neurological: Positive for: Motor Func Grossly Intact, Normal Sensory Function Psychiatric: Positive for: Alert, Normal Affect. Negative for: Agitated - Medications Active Medications: Active Medications Generic Name Dose Route Start Last Admin Trade Name Freq PRN Reason Stop Dose Admin Acetaminophen 650 mg 02/16/17 20:31 Tylenol 325mg Tab PO Q6 PRN Fever >100.4 F Acetaminophen 650 mg 02/20/17 13:00 Tylenol 650 Mg Supp [place] ONCE [facility] Bisacodyl 10 mg 02/20/17 12:17 02/20/17 12:51 Dulcolax [place] 10 mg DAILY PRN Administration Constipation Citalopram Hydrobromide 10 mg 02/17/17 22:00 02/18/17 21:14 Celexa PO 10 mg HS [facility] Administration Docusate Sodium 100 mg 02/17/17 09:00 02/20/17 08:33 Colace PO Not Given BID [facility] Donepezil HCl 10 mg 02/17/17 22:00 02/18/17 21:15 Aricept PO 10 mg HS [facility] Administration Enoxaparin Sodium 40 mg 02/21/17 09:00 Lovenox SC DAILY [facility] Protocol Ferrous Sulfate 325 mg 02/20/17 17:00 Feosol PO BID [facility] Vancomycin/Sodium Chloride 1 gm in 200 mls @ 133.333 mls/hr 02/17/17 21:00 09:45 Vancocin IVPB 02/22/17 21:01 133.333 mls/hr Q12 [facility] Administration Protocol Cefepime HCl 2 gm/ Dextrose 50 mls @ 50 mls/hr 02/20/17 21:00 IVPB Q12 [facility] Sodium Chloride 1,000 mls @ 100 mls/hr 02/20/17 10:15 Sodium Chloride 0.9% IV 02/21/17 10:15 .Q10H [facility] Ketorolac Tromethamine 15 mg 02/20/17 09:38 02/20/17 12:39 Toradol IVP 15 mg Q6 PRN Administration Pain, Mild (1-3) Levothyroxine Sodium 75 mcg 02/18/17 06:30 02/20/17 08:35 Synthroid PO 75 mcg DAILY@0630 [facility] Administration Magnesium Hydroxide 30 ml 02/17/17 10:12 Milk Of Magnesia PO Q72 PRN Constipation Memantine 10 mg 02/17/17 17:00 02/19/17 16:27 Namenda PO Not Given BID [facility] Multivitamins/Minerals 1 tab 02/18/17 09:00 02/20/17 08:35 Therapeutic-M Tab PO Not Given DAILY [facility] Mupirocin 1 applic 02/18/17 09:00 02/18/17 09:57 Bactroban Ointment TOP 1 applic DAILY [facility] Administration Ondansetron HCl 4 mg 02/20/17 09:02 02/20/17 09:41 Zofran Inj IVP 4 mg Q6 PRN Administration Nausea/Vomiting Pantoprazole Sodium 40 mg 02/17/17 09:00 02/20/17 08:35 Protonix Ec Tab PO Not Given DAILY [facility] Propranolol HCl 10 mg 02/17/17 10:15 02/20/17 04:20 Inderal PO 10 mg Q8H [facility] Administration Ursodiol 300 mg 02/17/17 17:00 02/20/17 08:32 Actigall PO Not Given BID [facility] - Patient Studies Lab Studies: Microbiology Studies 02/19/17 14:00 Gram Stain - Final Knee - Right Wound Culture - Preliminary NO GROWTH AFTER 24 HOURS 02/19/17 14:00 Gram Stain - Final Knee - Right Wound Culture - Preliminary NO GROWTH AFTER 24 HOURS 02/19/17 14:00 Gram Stain - Final Knee - Right Wound Culture - Preliminary NO GROWTH AFTER 24 HOURS 02/19/17 14:00 Gram Stain - Final Knee - Right Wound Culture - Preliminary NO GROWTH AFTER 24 HOURS 02/19/17 14:00 Gram Stain - Final Knee - Right Wound Culture - Preliminary NO GROWTH AFTER 24 HOURS 02/19/17 14:00 Gram Stain - Final Knee - Right Wound Culture - Preliminary NO GROWTH AFTER 24 HOURS 02/19/17 14:00 Gram Stain - Final Knee - Right Wound Culture - Preliminary NO GROWTH AFTER 24 HOURS 02/19/17 14:00 Gram Stain - Final Knee - Right Wound Culture - Preliminary NO GROWTH AFTER 24 HOURS 02/19/17 09:09 Gram Stain - Final Synovial Fluid Body Fluid Culture - Preliminary NO GROWTH AFTER 24 HOURS 02/19/17 09:28 Gram Stain - Final Synovial Fluid Body Fluid Culture - Preliminary NO GROWTH AFTER 24 HOURS 02/19/17 09:28 Fungal Culture - Preliminary Knee Right 02/19/17 09:30 Fungal Culture - Preliminary Knee Right 02/16/17 20:57 Blood Culture - Preliminary Blood-Venous NO GROWTH AFTER 3 DAYS 02/16/17 20:30 Blood Culture - Preliminary Blood-Venous NO GROWTH AFTER 3 DAYS Lab Studies 02/20/17 02/20/17 02/20/17 Range/Units 11:54 11:15 05:19 WBC (4.8-10.8) K/uL RBC (3.80-5.20) Mil/uL Hgb (12.0-16.0) g/dL Hct (34.0-47.0) % MCV (81.0-99.0) fl MCH (27.0-31.0) pg MCHC (33.0-37.0) g/dL RDW (11.5-14.5) % Plt Count (130-400) K/uL MPV (7.2-11.7) fl Neut % (Auto) (50.0-75.0) % Lymph % (Auto) (20.0-40.0) % [place] % (Auto) (0.0-10.0) % Eos % (Auto) (0.0-4.0) % Baso % (Auto) (0.0-2.0) % Neut # (1.8-7.0) K/uL Lymph # (1.0-4.3) K/uL [place] # (0.0-0.8) K/uL Eos # (0.0-0.7) K/uL Baso # (0.0-0.2) K/uL Sodium (132-148) mmol/l Potassium (3.6-5.0) MMOL/L Chloride (98-107) mmol/L Carbon Dioxide (22-30) mmol/L Anion Gap (10-20) BUN (7-17) mg/dl Creatinine (0.7-1.2) mg/dL Est GFR ( Amer) Est GFR (Non-Af Amer) POC Glucose (mg/dL) 124 H 189 H (65-110) mg/dL Random Glucose (65-105) mg/dL Calcium (8.4-10.2) mg/dL Folate ng/mL Blood Type O POSITIVE Antibody Screen Negative Crossmatch See Detail BBK History Checked Patient has bt 02/20/17 02/20/17 02/19/17 Range/Units 04:20 04:20 21:43 WBC 7.1 (4.8-10.8) K/uL RBC 2.91 L (3.80-5.20) Mil/uL Hgb 9.3 L (12.0-16.0) g/dL Hct 28.6 L (34.0-47.0) % MCV 98.3 (81.0-99.0) fl MCH 32.0 H (27.0-31.0) pg MCHC 32.5 L (33.0-37.0) g/dL RDW 17.7 H (11.5-14.5) % Plt Count 94 L (130-400) K/uL MPV 9.1 (7.2-11.7) fl Neut % (Auto) 68.0 (50.0-75.0) % Lymph % (Auto) 16.5 L (20.0-40.0) % [place] % (Auto) 11.6 H (0.0-10.0) % Eos % (Auto) 2.6 (0.0-4.0) % Baso % (Auto) 1.3 (0.0-2.0) % Neut # 4.8 (1.8-7.0) K/uL Lymph # 1.2 (1.0-4.3) K/uL [place] # 0.8 (0.0-0.8) K/uL Eos # 0.2 (0.0-0.7) K/uL Baso # 0.1 (0.0-0.2) K/uL Sodium 140 (132-148) mmol/l Potassium 3.7 (3.6-5.0) MMOL/L Chloride 110 H (98-107) mmol/L Carbon Dioxide 23 (22-30) mmol/L Anion Gap 11 (10-20) BUN 13 (7-17) mg/dl Creatinine 0.7 (0.7-1.2) mg/dL Est GFR ( Amer) > 60 Est GFR (Non-Af Amer) > 60 POC Glucose (mg/dL) 164 H (65-110) mg/dL Random Glucose 153 H (65-105) mg/dL Calcium 8.8 (8.4-10.2) mg/dL Folate ng/mL Blood Type Antibody Screen Crossmatch BBK History Checked 02/19/17 02/19/17 02/17/17 Range/Units 17:21 05:15 08:25 WBC (4.8-10.8) K/uL RBC (3.80-5.20) Mil/uL Hgb (12.0-16.0) g/dL Hct (34.0-47.0) % MCV (81.0-99.0) fl MCH (27.0-31.0) pg MCHC (33.0-37.0) g/dL RDW (11.5-14.5) % Plt Count (130-400) K/uL MPV (7.2-11.7) fl Neut % (Auto) (50.0-75.0) % Lymph % (Auto) (20.0-40.0) % [place] % (Auto) (0.0-10.0) % Eos % (Auto) (0.0-4.0) % Baso % (Auto) (0.0-2.0) % Neut # (1.8-7.0) K/uL Lymph # (1.0-4.3) K/uL [place] # (0.0-0.8) K/uL Eos # (0.0-0.7) K/uL Baso # (0.0-0.2) K/uL Sodium (132-148) mmol/l Potassium (3.6-5.0) MMOL/L Chloride (98-107) mmol/L Carbon Dioxide (22-30) mmol/L Anion Gap (10-20) BUN (7-17) mg/dl Creatinine (0.7-1.2) mg/dL Est GFR ( Amer) Est GFR (Non-Af Amer) POC Glucose (mg/dL) 131 H (65-110) mg/dL Random Glucose (65-105) mg/dL Calcium (8.4-10.2) mg/dL Folate 7.9 ng/mL Blood Type O POSITIVE Antibody Screen Negative Crossmatch See Detail BBK History Checked Patient has bt Laboratory Results - last 24 hr 02/17/17 02/19/17 02/19/17 08:25 05:15 17:21 WBC RBC Hgb Hct MCV MCH MCHC RDW Plt Count MPV Neut % (Auto) Lymph % (Auto) [place] % (Auto) Eos % (Auto) Baso % (Auto) Neut # Lymph # [place] # Eos # Baso # Sodium Potassium Chloride Carbon Dioxide Anion Gap BUN Creatinine Est GFR ( Amer) Est GFR (Non-Af Amer) POC Glucose (mg/dL) 131 H Random Glucose Calcium Folate 7.9 Blood Type O POSITIVE Antibody Screen Negative Crossmatch See Detail BBK History Checked Patient has bt 02/19/17 02/20/17 02/20/17 21:43 04:20 04:20 WBC 7.1 RBC 2.91 L Hgb 9.3 L Hct 28.6 L MCV 98.3 MCH 32.0 H MCHC 32.5 L RDW 17.7 H Plt Count 94 L MPV 9.1 Neut % (Auto) 68.0 Lymph % (Auto) 16.5 L [place] % (Auto) 11.6 H Eos % (Auto) 2.6 Baso % (Auto) 1.3 Neut # 4.8 Lymph # 1.2 [place] # 0.8 Eos # 0.2 Baso # 0.1 Sodium 140 Potassium 3.7 Chloride 110 H Carbon Dioxide 23 Anion Gap 11 BUN 13 Creatinine 0.7 Est GFR ( Amer) > 60 Est GFR (Non-Af Amer) > 60 POC Glucose (mg/dL) 164 H Random Glucose 153 H Calcium 8.8 Folate Blood Type Antibody Screen Crossmatch BBK History Checked 02/20/17 02/20/17 02/20/17 05:19 11:15 11:54 WBC RBC Hgb Hct MCV MCH MCHC RDW Plt Count MPV Neut % (Auto) Lymph % (Auto) [place] % (Auto) Eos % (Auto) Baso % (Auto) Neut # Lymph # [place] # Eos # Baso # Sodium Potassium Chloride Carbon Dioxide Anion Gap BUN Creatinine Est GFR ( Amer) Est GFR (Non-Af Amer) POC Glucose (mg/dL) 189 H 124 H Random Glucose Calcium Folate Blood Type O POSITIVE Antibody Screen Negative Crossmatch See Detail BBK History Checked Patient has bt Fingerstick Blood Sugar Results: 124 Critical Care Progress Note - Nutrition Nutrition: Nutrition Category Date Time Status Dysphagia/Modified Consistency Diet [DIET] Diets 02/19/17 Dinner Active
[2017-02-20] MEDS: Sodium Chloride 0.9% 1,000 ML IV SCH ×2 (13:24→23:25)
[2017-02-20] MEDS ORDERED: Enoxaparin 40 mg Syringe SC STA (13:42)
--- NOTE | 2017-02-20 14:21 | CP.PCM.CON ---
History of Present Illness - History of Present Illness History of Present Illness: Rachel Smith is an 86 year old female with an extensive past medical history which includes HTN, CHF, DM, Ovarian Ca, and Cirrhosis who underwent removal of an infected right TKR and insertion of a spacer yesterday. A wound vac was applied by Dr. Castle at the conclusion of the procedure. Because of a delayed extubation, she was admitted to the ICU. PE: Resting comfortably. T = 99.4. Wound vac functioning well with a knee immobilizer in place. PLAN: Will view the wound on Friday when the wound vac is changed. Recommend conservative care only at the present time. Jose Dickerson M.D. Past Patient History - Tetanus Immunizations Tetanus Immunization: Unknown - Past Medical History & Family History Past Medical History?: Yes - Past Social History Smoking Status: Never Smoked - CARDIAC Hx Cardiac Disorders: Yes Hx Congestive Heart Failure: Yes Hx Hypercholesterolemia: Yes Hx Hypertension: Yes - PULMONARY Hx Respiratory Disorders: Yes Hx Pneumonia: Yes - NEUROLOGICAL Hx Dementia: Yes - HEENT Hx HEENT Problems: No - RENAL Hx Chronic Kidney Disease: Yes - ENDOCRINE/METABOLIC Hx Endocrine Disorders: Yes Hx Diabetes Mellitus Type 2: Yes Hx Hypothyroidism: Yes - HEMATOLOGICAL/ONCOLOGICAL Hx Blood Disorders: Yes Hx Cancer: Yes (Neoplasm colon) - INTEGUMENTARY Hx Dermatological Problems: No - MUSCULOSKELETAL/RHEUMATOLOGICAL Hx Falls: No - GASTROINTESTINAL Hx Liver Failure: Yes (liver cirrhosis) Other/Comment: gi hemorrhage/abdominal mass /bleeding esophageal varices - GENITOURINARY/GYNECOLOGICAL Hx Genitourinary Disorders: Yes Hx Ovarian Cancer: Yes (malignant ovarian tumor) Hx Urinary Tract Infection: Yes - PSYCHIATRIC Hx Substance Use: No - SURGICAL HISTORY Hx Surgeries: Yes Hx Orthopedic Surgery: Yes (rt knee replacement 20 yrs ago) - ANESTHESIA Hx Anesthesia: Yes Hx Anesthesia Reactions: No Meds Allergies/Adverse Reactions: Allergies Allergy/AdvReac Type Severity Reaction Status Date / Time No Known Allergies Allergy Verified 05/23/16 11:21 - Medications Medications: Current Medications Acetaminophen (Tylenol 325mg Tab) 650 mg PO Q6 PRN PRN Reason: Fever >100.4 F Acetaminophen (Tylenol 650 Mg Supp) 650 mg [place] ONCE [facility]EN Last Admin: 02/20/17 13:25 Dose: 650 mg Bisacodyl (Dulcolax) 10 mg [place] DAILY PRN PRN Reason: Constipation Last Admin: 02/20/17 12:51 Dose: 10 mg Citalopram Hydrobromide (Celexa) 10 mg PO HS [facility] Last Admin: 02/18/17 21:14 Dose: 10 mg Docusate Sodium (Colace) 100 mg PO BID [facility] Last Admin: 02/20/17 08:33 Dose: Not Given Donepezil HCl (Aricept) 10 mg PO HS [facility] Last Admin: 02/18/17 21:15 Dose: 10 mg Enoxaparin Sodium (Lovenox) 40 mg SC DAILY [facility] PRN Reason: Protocol Ferrous Sulfate (Feosol) 325 mg PO BID [facility] Vancomycin/Sodium Chloride (Vancocin) 1 gm in 200 mls @ 133.333 mls/hr IVPB Q12 [facility] PRN Reason: Protocol Stop: 02/22/17 21:01 Last Admin: 02/20/17 09:45 Dose: 133.333 mls/hr Cefepime HCl 2 gm/ Dextrose 50 mls @ 50 mls/hr IVPB Q12 [facility] Sodium Chloride (Sodium Chloride 0.9%) 1,000 mls @ 100 mls/hr IV .Q10H [facility] Stop: 02/21/17 10:15 Last Admin: 02/20/17 13:24 Dose: 100 mls/hr Ketorolac Tromethamine (Toradol) 15 mg IVP Q6 PRN PRN Reason: Pain, Mild (1-3) Last Admin: 02/20/17 12:39 Dose: 15 mg Levothyroxine Sodium (Synthroid) 75 mcg PO DAILY@0630 [facility] Last Admin: 02/20/17 08:35 Dose: 75 mcg Magnesium Hydroxide (Milk Of Magnesia) 30 ml PO Q72 PRN PRN Reason: Constipation Memantine (Namenda) 10 mg PO BID [facility] Last Admin: 02/19/17 16:27 Dose: Not Given Multivitamins/Minerals (Therapeutic-M Tab) 1 tab PO DAILY [facility] Last Admin: 02/20/17 08:35 Dose: Not Given Mupirocin (Bactroban Ointment) 1 applic TOP DAILY [facility] Last Admin: 02/18/17 09:57 Dose: 1 applic Ondansetron HCl (Zofran Inj) 4 mg IVP Q6 PRN PRN Reason: Nausea/Vomiting Last Admin: 02/20/17 09:41 Dose: 4 mg Pantoprazole Sodium (Protonix Ec Tab) 40 mg PO DAILY [facility] Last Admin: 02/20/17 08:35 Dose: Not Given Propranolol HCl (Inderal) 10 mg PO Q8H [facility] Last Admin: 02/20/17 04:20 Dose: 10 mg Ursodiol (Actigall) 300 mg PO BID [facility] Last Admin: 02/20/17 08:32 Dose: Not Given Results - Vital Signs Recent Vital Signs: Last Vital Signs Temp 99.0 F 02/20/17 14:00 Pulse 64 02/20/17 14:00 Resp 21 02/20/17 14:00 BP 110/46 L 02/20/17 14:00 Pulse Ox 100 02/20/17 14:00 - Labs Result Diagrams: 02/20/17 04:20 02/20/17 04:20 Labs: Laboratory Results - last 24 hr 02/17/17 02/19/17 02/19/17 08:25 17:21 21:43 WBC RBC Hgb Hct MCV MCH MCHC RDW Plt Count MPV Neut % (Auto) Lymph % (Auto) [place] % (Auto) Eos % (Auto) Baso % (Auto) Neut # Lymph # [place] # Eos # Baso # Sodium Potassium Chloride Carbon Dioxide Anion Gap BUN Creatinine Est GFR ( Amer) Est GFR (Non-Af Amer) POC Glucose (mg/dL) 131 H 164 H Random Glucose Calcium Blood Type O POSITIVE Antibody Screen Negative Crossmatch See Detail BBK History Checked Patient has bt 02/20/17 02/20/17 02/20/17 04:20 04:20 05:19 WBC 7.1 RBC 2.91 L Hgb 9.3 L Hct 28.6 L MCV 98.3 MCH 32.0 H MCHC 32.5 L RDW 17.7 H Plt Count 94 L MPV 9.1 Neut % (Auto) 68.0 Lymph % (Auto) 16.5 L [place] % (Auto) 11.6 H Eos % (Auto) 2.6 Baso % (Auto) 1.3 Neut # 4.8 Lymph # 1.2 [place] # 0.8 Eos # 0.2 Baso # 0.1 Sodium 140 Potassium 3.7 Chloride 110 H Carbon Dioxide 23 Anion Gap 11 BUN 13 Creatinine 0.7 Est GFR ( Amer) > 60 Est GFR (Non-Af Amer) > 60 POC Glucose (mg/dL) 189 H Random Glucose 153 H Calcium 8.8 Blood Type Antibody Screen Crossmatch BBK History Checked 02/20/17 02/20/17 11:15 11:54 WBC RBC Hgb Hct MCV MCH MCHC RDW Plt Count MPV Neut % (Auto) Lymph % (Auto) [place] % (Auto) Eos % (Auto) Baso % (Auto) Neut # Lymph # [place] # Eos # Baso # Sodium Potassium Chloride Carbon Dioxide Anion Gap BUN Creatinine Est GFR ( Amer) Est GFR (Non-Af Amer) POC Glucose (mg/dL) 124 H Random Glucose Calcium Blood Type O POSITIVE Antibody Screen Negative Crossmatch See Detail BBK History Checked Patient has bt
--- NOTE | 2017-02-20 17:16 | CP.PCM.PN ---
Subjective - Date & Time of Evaluation Date of Evaluation: 02/20/17 Time of Evaluation: 05:00 - Subjective Subjective: S- pt comfortable PD #1 - s/p component removal R knee Objective - Vital Signs/Intake and Output Vital Signs (last 24 hours): Temp Pulse Resp BP Pulse Ox 98.2 F 61 19 106/48 L 100 02/20/17 16:00 02/20/17 16:00 02/20/17 16:00 02/20/17 16:00 02/20/17 16:00 Intake and Output: 02/20/17 02/20/17 06:59 18:59 Intake Total 1200 1444 Output Total 100 Balance 1100 1444 - Medications Medications: Current Medications Acetaminophen (Tylenol 325mg Tab) 650 mg PO Q6 PRN PRN Reason: Fever >100.4 F Acetaminophen (Tylenol 650 Mg Supp) 650 mg [place] ONCE [facility] Last Admin: 02/20/17 13:25 Dose: 650 mg Bisacodyl (Dulcolax) 10 mg [place] DAILY PRN PRN Reason: Constipation Last Admin: 02/20/17 12:51 Dose: 10 mg Citalopram Hydrobromide (Celexa) 10 mg PO HS [facility] Last Admin: 02/18/17 21:14 Dose: 10 mg Docusate Sodium (Colace) 100 mg PO BID [facility] Last Admin: 02/20/17 16:40 Dose: Not Given Donepezil HCl (Aricept) 10 mg PO HS [facility] Last Admin: 02/18/17 21:15 Dose: 10 mg Enoxaparin Sodium (Lovenox) 40 mg SC DAILY [facility] PRN Reason: Protocol Ferrous Sulfate (Feosol) 325 mg PO BID [facility] Last Admin: 02/20/17 16:40 Dose: Not Given Vancomycin/Sodium Chloride (Vancocin) 1 gm in 200 mls @ 133.333 mls/hr IVPB Q12 [facility] PRN Reason: Protocol Stop: 02/22/17 21:01 Last Admin: 02/20/17 09:45 Dose: 133.333 mls/hr Cefepime HCl 2 gm/ Dextrose 50 mls @ 50 mls/hr IVPB Q12 [facility] Sodium Chloride (Sodium Chloride 0.9%) 1,000 mls @ 100 mls/hr IV .Q10H [facility] Stop: 02/21/17 10:15 Last Admin: 02/20/17 13:24 Dose: 100 mls/hr Ketorolac Tromethamine (Toradol) 15 mg IVP Q6 PRN PRN Reason: Pain, Mild (1-3) Last Admin: 02/20/17 12:39 Dose: 15 mg Levothyroxine Sodium (Synthroid) 75 mcg PO DAILY@0630 [facility] Last Admin: 02/20/17 08:35 Dose: 75 mcg Magnesium Hydroxide (Milk Of Magnesia) 30 ml PO Q72 PRN PRN Reason: Constipation Memantine (Namenda) 10 mg PO BID [facility] Last Admin: 02/19/17 16:27 Dose: Not Given Multivitamins/Minerals (Therapeutic-M Tab) 1 tab PO DAILY [facility] Last Admin: 02/20/17 08:35 Dose: Not Given Mupirocin (Bactroban Ointment) 1 applic TOP DAILY [facility] Last Admin: 02/18/17 09:57 Dose: 1 applic Ondansetron HCl (Zofran Inj) 4 mg IVP Q6 PRN PRN Reason: Nausea/Vomiting Last Admin: 02/20/17 09:41 Dose: 4 mg Pantoprazole Sodium (Protonix Ec Tab) 40 mg PO DAILY [facility] Last Admin: 02/20/17 08:35 Dose: Not Given Propranolol HCl (Inderal) 10 mg PO Q8H [facility] Last Admin: 02/20/17 10:15 Dose: Not Given Ursodiol (Actigall) 300 mg PO BID [facility] Last Admin: 02/20/17 16:40 Dose: Not Given - Labs Labs: 02/20/17 04:20 02/20/17 04:20 PT 12.7 Seconds (9.8-13.1) 02/17/17 10:05 INR 1.1 (0.9-1.2) 02/17/17 10:05 APTT 30.5 Seconds (25.6-37.1) 02/19/17 05:15 - Additional Findings Additional findings: Obnjective afebrile VSS systemic wnl Musculoskekltal stance/gait- defrred R knee immobilizer intact wound vac intact Assessment and Plan - Assessment and Plan (Free Text) Assessment: A- s/p removal prosthesis and insertion of abio impreganted spacer P- Dr archuleta consult noted and apprexciated orthopedically stable
[2017-02-20 21:40] LABS: HEMATOCRIT 30.5 % (34.0-47.0); MEAN CELL VOLUME 96.7 fl (81.0-99.0); MEAN CORPUSCULAR HEMOGLOBIN 31.6 pg (27.0-31.0); MEAN CORPUSCULAR HGB CONC 32.7 g/dL (33.0-37.0); RED CELL DISTRIBUTION WIDTH 17.2 % (11.5-14.5); WHITE BLOOD COUNT 6.8 K/uL (4.8-10.8)
[2017-02-21 05:18] LABS: HEMATOCRIT 33.5 % (34.0-47.0); MEAN CELL VOLUME 98.3 fl (81.0-99.0); MEAN CORPUSCULAR HEMOGLOBIN 31.5 pg (27.0-31.0); RED CELL DISTRIBUTION WIDTH 17.4 % (11.5-14.5); WHITE BLOOD COUNT 6.9 K/uL (4.8-10.8)
[2017-02-21 05:29] LABS: BLOOD UREA NITROGEN 16 mg/dl (7-17); CARBON DIOXIDE 21 mmol/L (22-30); CHLORIDE 113 mmol/L (98-107); GFR AFRICAN-AMERICAN > 60; GLUCOSE,RANDOM 80 mg/dL (65-105); POTASSIUM 3.4 MMOL/L (3.6-5.0); SODIUM 142 mmol/l (132-148)
[2017-02-21] MEDS: Levothyroxine 75 MCG TAB PO SCH (06:31)
[2017-02-21] MEDS ORDERED: Potassium Chloride 20 mEq/15 ml LIQ UD PO ONE (08:24)
--- NOTE | 2017-02-21 08:33 | CP.PCM.DIS ---
Provider - Provider Date of Admission: 02/16/17 19:06 Attending physician: Sarwat Candelaria MD Consults: ortho consult plastic surgery consult ID consult cardiology consult hematology consult Time Spent in preparation of Discharge (in minutes): 20 Hospital Course - Lab Results Lab Results: Micro Results 02/19/17 15:00 Nose MRSA Culture (Admit) - Final MRSA DETECTED 02/16/17 20:57 Blood-Venous Blood Culture - Preliminary NO GROWTH AFTER 4 DAYS 02/16/17 20:30 Blood-Venous Blood Culture - Preliminary NO GROWTH AFTER 4 DAYS 02/19/17 09:28 Other: Please Indicate Mycobacterial Culture - Preliminary 02/19/17 09:30 Other: Please Indicate Mycobacterial Culture - Preliminary 02/19/17 14:00 Knee - Right Gram Stain - Final 02/19/17 14:00 Knee - Right Wound Culture - Preliminary NO GROWTH AFTER 24 HOURS 02/19/17 14:00 Knee - Right Gram Stain - Final 02/19/17 14:00 Knee - Right Wound Culture - Preliminary NO GROWTH AFTER 24 HOURS 02/19/17 14:00 Knee - Right Gram Stain - Final 02/19/17 14:00 Knee - Right Wound Culture - Preliminary NO GROWTH AFTER 24 HOURS 02/19/17 14:00 Knee - Right Gram Stain - Final 02/19/17 14:00 Knee - Right Wound Culture - Preliminary NO GROWTH AFTER 24 HOURS 02/19/17 14:00 Knee - Right Gram Stain - Final 02/19/17 14:00 Knee - Right Wound Culture - Preliminary NO GROWTH AFTER 24 HOURS 02/19/17 14:00 Knee - Right Gram Stain - Final 02/19/17 14:00 Knee - Right Wound Culture - Preliminary NO GROWTH AFTER 24 HOURS 02/19/17 14:00 Knee - Right Gram Stain - Final 02/19/17 14:00 Knee - Right Wound Culture - Preliminary NO GROWTH AFTER 24 HOURS 02/19/17 14:00 Knee - Right Gram Stain - Final 02/19/17 14:00 Knee - Right Wound Culture - Preliminary NO GROWTH AFTER 24 HOURS 02/19/17 09:09 Synovial Fluid Gram Stain - Final 02/19/17 09:09 Synovial Fluid Body Fluid Culture - Preliminary NO GROWTH AFTER 24 HOURS 02/19/17 09:28 Synovial Fluid Gram Stain - Final 02/19/17 09:28 Synovial Fluid Body Fluid Culture - Preliminary NO GROWTH AFTER 24 HOURS 02/19/17 09:28 Knee Right Fungal Culture - Preliminary 02/19/17 09:30 Knee Right Fungal Culture - Preliminary 02/17/17 09:32 Urine,Catheterized Urine Culture - Final No Growth (<1,000 CFU/ML) Most Recent Lab Values WBC 6.9 K/uL (4.8-10.8) 02/21/17 04:25 RBC 3.41 Mil/uL (3.80-5.20) L 02/21/17 04:25 Hgb 10.7 g/dL (12.0-16.0) L 02/21/17 04:25 Hct 33.5 % (34.0-47.0) L 02/21/17 04:25 MCV 98.3 fl (81.0-99.0) 02/21/17 04:25 MCH 31.5 pg (27.0-31.0) H 02/21/17 04:25 MCHC 32.0 g/dL (33.0-37.0) L 02/21/17 04:25 RDW 17.4 % (11.5-14.5) H 02/21/17 04:25 Plt Count 90 K/uL (130-400) L 02/21/17 04:25 Manual Plt Count 99 K/uL (130-400) L 02/17/17 12:13 MPV 9.1 fl (7.2-11.7) 02/20/17 04:20 Neut % (Auto) 68.0 % (50.0-75.0) 02/20/17 04:20 Lymph % (Auto) 16.5 % (20.0-40.0) L 02/20/17 04:20 Pershing % (Auto) 11.6 % (0.0-10.0) H 02/20/17 04:20 Eos % (Auto) 2.6 % (0.0-4.0) 02/20/17 04:20 Baso % (Auto) 1.3 % (0.0-2.0) 02/20/17 04:20 Neut # 4.8 K/uL (1.8-7.0) 02/20/17 04:20 Lymph # 1.2 K/uL (1.0-4.3) 02/20/17 04:20 Pershing # 0.8 K/uL (0.0-0.8) 02/20/17 04:20 Eos # 0.2 K/uL (0.0-0.7) 02/20/17 04:20 Baso # 0.1 K/uL (0.0-0.2) 02/20/17 04:20 Retic Count 2.6 % (0.5-1.5) H 02/19/17 06:17 PT 12.7 Seconds (9.8-13.1) 02/17/17 10:05 INR 1.1 (0.9-1.2) 02/17/17 10:05 APTT 30.5 Seconds (25.6-37.1) 02/19/17 05:15 Sodium 142 mmol/l (132-148) 02/21/17 04:25 Potassium 3.4 MMOL/L (3.6-5.0) L 02/21/17 04:25 Chloride 113 mmol/L (98-107) H 02/21/17 04:25 Carbon Dioxide 21 mmol/L (22-30) L 02/21/17 04:25 Anion Gap 11 (-20) 02/21/17 04:25 BUN 16 mg/dl (7-17) 02/21/17 04:25 Creatinine 0.8 mg/dL (0.7-1.2) 02/21/17 04:25 Est GFR ( Amer) > 60 02/21/17 04:25 Est GFR (Non-Af Amer) > 60 02/21/17 04:25 POC Glucose (mg/dL) 77 mg/dL (65-110) 02/21/17 06:16 Random Glucose 80 mg/dL (65-105) 02/21/17 04:25 Calcium 9.0 mg/dL (8.4-10.2) 02/21/17 04:25 Ferritin 71.4 ng/Ml (11.1-264.0) 02/19/17 05:15 Total Bilirubin 0.5 mg/dl (0.2-1.3) 02/17/17 05:15 AST 47 U/L (14-36) H 02/17/17 05:15 ALT 39 U/L (9-52) 02/17/17 05:15 Alkaline Phosphatase 180 U/L (38-126) H 02/17/17 05:15 Total Protein 6.1 G/DL (6.3-8.2) L 02/17/17 05:15 Albumin 2.7 g/dL (3.5-5.0) L D 02/17/17 05:15 Globulin 3.4 gm/dL (2.2-3.9) 02/17/17 05:15 Albumin/Globulin Ratio 0.8 (1.0-2.1) L 02/17/17 05:15 Vitamin B12 722 pg/mL (239-931) 02/19/17 05:15 Folate 7.9 ng/mL 02/19/17 05:15 Urine Color Yellow (YELLOW) 02/17/17 09:32 Urine Clarity Clear (Clear) 02/17/17 09:32 Urine pH 6.0 (5.0-8.0) 02/17/17 09:32 Ur Specific [place] 1.011 (1.003-1.030) 02/17/17 09:32 Urine Protein Negative mg/dL (NEGATIVE) 02/17/17 09:32 Urine Glucose (UA) Neg mg/dL (Normal) 02/17/17 09:32 Urine Ketones Negative mg/dL (NEGATIVE) 02/17/17 09:32 Urine Blood Negative (NEGATIVE) 02/17/17 09:32 Urine Nitrate Negative (NEGATIVE) 02/17/17 09:32 Urine Bilirubin Negative (NEGATIVE) 02/17/17 09:32 Urine Urobilinogen 0.2-1.0 mg/dL (0.2-1.0) 02/17/17 09:32 Ur Leukocyte Esterase Neg Alethea/uL (Negative) 02/17/17 09:32 Urine RBC (Auto) 3 /hpf (0-3) 02/17/17 09:32 Urine Microscopic WBC 1 /hpf (0-5) 02/17/17 09:32 Fluid Type Synovial fluid 02/19/17 09:28 Synovial WBC 89.0 /mm3 (0.0-150.0) 02/19/17 09:28 Synovial RBC 9851.0 /mm3 (0.0-0.0) H 02/19/17 09:28 Synovial Neutrophils 19.0 % (0-0) H 02/19/17 09:28 Synovial Lymphocytes 69.0 % (0-0) H 02/19/17 09:28 Synov Monos/Macrophage 12 % (0-0) H 02/19/17 09:28 Synovial Fluid Comment Moderately bloody 02/19/17 09:28 Vancomycin Trough 18.1 ug/mL (5.0-10.0) H 02/17/17 19:03 Blood Type O POSITIVE 02/20/17 11:15 Antibody Screen Negative 02/20/17 11:15 Crossmatch See Detail 02/20/17 11:15 BBK History Checked Patient has bt 02/20/17 11:15 - Hospital Course Hospital Course: 86 y/o lady , [facility] resident, with Hx of Dementia , Ovarian CA, HTN, Cirrhosis, DM, Pancytopenia and hx of Right TKR done 20 yrs ago , was transferred from [facility] per family request due to Infection of Right Prosthetic joint and open wound .Ortho and ID consulted. Pt was started on IV Vanco and Cefepime. Pt underwent Removal of Septic Right TKR and placement of Abx spacer on 02/19 and wound vac placement. Post op developed resp insufficiency, she was transferred to ICU for monitoring.Pt was extubated and doing well. Currently patient is hemodynamically stable. Cleared by ortho for discharge back to [place] with wound vac in place. Plastic surgery Dr. Dickerson was consulted and will follow up patient after removal of wound vac . patient to follow up with Dr. Castle in 1 week Discussed with ID , Dr. Saeed.Patient to be discharged on PO Zyvox for 2 weeks with close monitoring of platelet count since she has chronic thrombocytopenia Discussed with hematoklogy Dr. Gerard and cleared patient to be started on lovenox for DVT porophylaxis 1. Infection of prosthetic right knee joint Acute s/p Removal of Septic TKR and placement of Antibiotic Spacer Wound Vac in place. Keep wound vac for [address] Castle consulted , performed surgery and will follow up upon discharge Received IV Cefepime and Vanco while in hospital . Will discharge on Po Zyvox for 2 weeks to follow up with plastic surgeon Dr. Dickerson upon discharge Continue DVT prophylaxis with lovenox as per hematology 2. 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 Acute respiratory insufficiency, postoperative, now resolved Acute may be sec to anesthesia , analgesics and was monitored in ICU g 4. Pancytopenia Chronic prob sec to Cirrhosis, cannot r/o MDS Hematology consulted, Dr. Gerard Pt was transfused 2 unit PRBC post op 5. DM2 (diabetes mellitus, type 2) Chronic Accucheck with coverage 6. Dementia Chronic Pt is on Aricept and Namenda 7. HTN (hypertension) Chronic held Lisinopril due to low BP 8. Liver cirrhosis Chronic held Propranolol as BP low 9. Hypothyroidism cont Levothyroxine 10. Constipation started Dulcolax, colace and given fleet enema 11.DVT prophylaxis Acute SCD Lovenox - as recommended by Dr Gerard monitor Platelet closely due to sl thrombocytopenia Discharge Exam - Head Exam Head Exam: NORMAL INSPECTION, NORMOCEPHALIC - Eye Exam Eye Exam: EOMI, Normal appearance, PERRL - ENT Exam ENT Exam: Mucous Membranes Moist - Neck Exam Neck exam: Full Rom, Normal Inspection - Respiratory Exam Respiratory Exam: Clear to PA & Lateral, NORMAL BREATHING PATTERN. absent: Wheezes, Respiratory Distress - Cardiovascular Exam Cardiovascular Exam: REGULAR RHYTHM, RRR, +S1, +S2. absent: JVD - GI/Abdominal Exam GI & Abdominal Exam: Normal Bowel Sounds. absent: Distended, Guarding, Rebound - Rectal Exam Rectal Exam: Deferred - Extremities Exam Extremities exam: normal capillary refill, pedal pulses present Additional comments: right knee dressing in place with wound vac - Neurological Exam Neurological exam: Alert, CN II-XII Intact Additional comments: demented - Psychiatric Exam Psychiatric exam: Flat Affect - Skin Skin Exam: Dry, Warm Discharge Plan - Follow Up Plan Condition: STABLE Disposition: TRANSF TO SNF Patient education suggested?: Yes Additional Instructions: make a follow up appointment to see Dr. Darlyn Garcia (Ortho) in 1 week make a follow up appointment to see Dr. Patsy Dickerson (Plastic Surgeon) on Friday () for wound vac dressing change. wants dressing change 2x/week every Tuesdays and Fridays. [phone] Referrals: Prince Castle III, MD [Family Provider] - Jose Dickerson MD [Staff Provider] -
[2017-02-21] MEDS ORDERED: Enoxaparin 40 mg Syringe SC SCH (09:00)
[2017-02-21] MEDS: Vancomycin 1 gm/NS 200 ml 1 GM/200 ML BAG IVPB SCH (09:26)
--- NOTE | 2017-02-21 09:30 | CP.PCM.PN ---
Subjective - Date & Time of Evaluation Date of Evaluation: 02/21/17 Time of Evaluation: 08:00 - Subjective Subjective: NO CHEST PAIN Objective - Vital Signs/Intake and Output Vital Signs (last 24 hours): Temp Pulse Resp BP Pulse Ox 98.5 F 80 20 124/76 100 02/21/17 07:50 02/21/17 07:50 02/21/17 07:50 02/21/17 07:50 02/21/17 07:50 Intake and Output: 02/21/17 02/21/17 06:59 18:59 Intake Total 1250 200 Output Total 12 Balance 1238 200 - Medications Medications: Current Medications Acetaminophen (Tylenol 325mg Tab) 650 mg PO Q6 PRN PRN Reason: Fever >100.4 F Acetaminophen (Tylenol 650 Mg Supp) 650 mg TX ONCE [facility] Last Admin: 02/20/17 13:25 Dose: 650 mg Bisacodyl (Dulcolax) 10 mg TX DAILY PRN PRN Reason: Constipation Last Admin: 02/20/17 12:51 Dose: 10 mg Citalopram Hydrobromide (Celexa) 10 mg PO HS [facility] Last Admin: 02/18/17 21:14 Dose: 10 mg Docusate Sodium (Colace) 100 mg PO BID [facility] Last Admin: 02/20/17 16:40 Dose: Not Given Donepezil HCl (Aricept) 10 mg PO HS [facility] Last Admin: 02/18/17 21:15 Dose: 10 mg Enoxaparin Sodium (Lovenox) 40 mg SC DAILY [facility] PRN Reason: Protocol Last Admin: 02/21/17 08:37 Dose: 40 mg Ferrous Sulfate (Feosol) 325 mg PO BID [facility] Last Admin: 02/20/17 16:40 Dose: Not Given Vancomycin/Sodium Chloride (Vancocin) 1 gm in 200 mls @ 133.333 mls/hr IVPB Q12 CAREN PRN Reason: Protocol Stop: 02/22/17 21:01 Last Admin: 02/20/17 21:12 Dose: 133.333 mls/hr Cefepime HCl 2 gm/ Dextrose 50 mls @ 50 mls/hr IVPB Q12 [facility] Last Admin: 02/21/17 08:10 Dose: 50 mls/hr Sodium Chloride (Sodium Chloride 0.9%) 1,000 mls @ 100 mls/hr IV .Q10H [facility] Stop: 02/21/17 10:15 Last Admin: 02/20/17 23:25 Dose: 100 mls/hr Ketorolac Tromethamine (Toradol) 15 mg IVP Q6 PRN PRN Reason: Pain, Mild (1-3) Last Admin: 02/20/17 12:39 Dose: 15 mg Levothyroxine Sodium (Synthroid) 75 mcg PO DAILY@0630 [facility] Last Admin: 02/21/17 06:31 Dose: 75 mcg Magnesium Hydroxide (Milk Of Magnesia) 30 ml PO Q72 PRN PRN Reason: Constipation Memantine (Namenda) 10 mg PO BID [facility] Last Admin: 02/19/17 16:27 Dose: Not Given Multivitamins/Minerals (Therapeutic-M Tab) 1 tab PO DAILY [facility] Last Admin: 02/20/17 08:35 Dose: Not Given Mupirocin (Bactroban Ointment) 1 applic TOP DAILY [facility] Last Admin: 02/18/17 09:57 Dose: 1 applic Ondansetron HCl (Zofran Inj) 4 mg IVP Q6 PRN PRN Reason: Nausea/Vomiting Last Admin: 02/21/17 08:37 Dose: 4 mg Pantoprazole Sodium (Protonix Ec Tab) 40 mg PO DAILY [facility] Last Admin: 02/20/17 08:35 Dose: Not Given Propranolol HCl (Inderal) 10 mg PO Q8H [facility] Last Admin: 02/20/17 10:15 Dose: Not Given Ursodiol (Actigall) 300 mg PO BID [facility] Last Admin: 02/20/17 16:40 Dose: Not Given - Labs Labs: 02/21/17 04:25 02/21/17 04:25 PT 12.7 Seconds (9.8-13.1) 02/17/17 10:05 INR 1.1 (0.9-1.2) 02/17/17 10:05 APTT 30.5 Seconds (25.6-37.1) 02/19/17 05:15 - Respiratory Exam Respiratory Exam: Clear to Ausculation Bilateral - Cardiovascular Exam Cardiovascular Exam: REGULAR RHYTHM, +S1, +S2 Assessment and Plan - Assessment and Plan (Free Text) Assessment: S/P REMOVAL OF INFECTED RIGHT KNEE HARDWARE HYPERTENSION CIRRHOSIS OF THE LIVER Plan: THE PATIENT IS ON ANTIBIOTICS, LOVENOX AND PROPRANOLOL LISINOPRIL IS ON HOLD FOR NOW BLOOD PRESSURE WAS LOW POST-OP
[2017-02-21] MEDS: Pantoprazole 40 mg EC Tab PO SCH (14:35)
[2017-02-21] MEDS: Multivitamin With Minerals Tab PO SCH (14:36)
[2017-02-21 14:40] VITALS: PULSE 84; O2SAT 99
[2017-02-21 16:12] VITALS: BP 130/59; RESP 22; TEMP 98.6
== END 2017-02-21 19:20 | DRG 463 ==
LOC: H.MEDSURG1 19:06 → H.ICU/CCU 02-19 13:51
PROC: 3E0234Z Introduction of Serum, Toxoid and Vaccine into Muscle, Percutaneous Approach (ICD-10-PCS; 2017-02-17)
PROC: 02HV33Z Insertion of Infusion Device into Superior Vena Cava, Percutaneous Approach (ICD-10-PCS; 2017-02-17)
PROC: 0QBG0ZX Excision of Right Tibia, Open Approach, Diagnostic (ICD-10-PCS; 2017-02-19)
PROC: 0SQC0ZZ Repair Right Knee Joint, Open Approach (ICD-10-PCS; 2017-02-19)
PROC: 3E0T3BZ Introduction of Anesthetic Agent into Peripheral Nerves and Plexi, Percutaneous Approach (ICD-10-PCS; 2017-02-19)
PROC: 3E0T3BZ Introduction of Anesthetic Agent into Peripheral Nerves and Plexi, Percutaneous Approach (ICD-10-PCS; 2017-02-19)
PROC: 0SHC08Z Insertion of Spacer into Right Knee Joint, Open Approach (ICD-10-PCS; 2017-02-19)
PROC: 30233N1 Transfusion of Nonautologous Red Blood Cells into Peripheral Vein, Percutaneous Approach (ICD-10-PCS; 2017-02-19)
PROC: 0SPC0JZ Removal of Synthetic Substitute from Right Knee Joint, Open Approach (ICD-10-PCS; principal; 2017-02-19 07:45)
PROC: 0QTD0ZZ Resection of Right Patella, Open Approach (ICD-10-PCS; 2017-02-19 07:45)
PROC: 0SBC0ZZ Excision of Right Knee Joint, Open Approach (ICD-10-PCS; 2017-02-19 07:45)
DX: T84.53XA Infection and inflammatory reaction due to internal right knee prosthesis, initial encounter (principal); J95.2 Acute pulmonary insufficiency following nonthoracic surgery; D61.818 Other pancytopenia; T81.31XA Disruption of external operation (surgical) wound, not elsewhere classified, initial encounter; J44.9 Chronic obstructive pulmonary disease, unspecified; T84.022A Instability of internal right knee prosthesis, initial encounter; F03.90 Unspecified dementia, unspecified severity, without behavioral disturbance, psychotic disturbance, mood disturbance, and anxiety; C56.9 Malignant neoplasm of unspecified ovary; E86.0 Dehydration; I10 Essential (primary) hypertension; K74.60 Unspecified cirrhosis of liver; E03.9 Hypothyroidism, unspecified; Z23 Encounter for immunization; Z96.651 Presence of right artificial knee joint; Y83.1 Surgical operation with implant of artificial internal device as the cause of abnormal reaction of the patient, or of later complication, without mention of misadventure at the time of the procedure; E78.5 Hyperlipidemia, unspecified; E63.9 Nutritional deficiency, unspecified; E78.00 Pure hypercholesterolemia, unspecified; K59.00 Constipation, unspecified; I95.81 Postprocedural hypotension; E11.9 Type 2 diabetes mellitus without complications; M65.9 Synovitis and tenosynovitis, unspecified; L98.429 Non-pressure chronic ulcer of back with unspecified severity

== ENCOUNTER 2017-03-02 18:13 | Inpatient (IN) | payer MEDICARE, MEDICAID ==
--- NOTE | 2017-03-02 18:21 | ED PDOC ---
HPI: Wound Care - HPI Time Seen by Provider: 03/02/17 18:15 Chief Complaint (Nursing): Wound Check Chief Complaint (Provider): Wound Check History Per: Patient, EMS, Other (Longterm Staff/ Dr. Dickerson) Additional Complaint(s): 86 yo female with history of CHF, Hypothyroidism, HLD, Dementia, HTN, Abdominal Mass, Malignant Ovarian Tumor and Liver Cirrhosis, sent to ED from Longterm because right knee surgical site noted to be swollen, reddened and slightly oozing some pus in [place]IZ[place]ET. alf staff reports that knee was bleeding incessantly. She also continued to complain of pain on the right knee but denied having fever or chills. As per history, her right knee was first operated for right TKR 20 yrs ago and was brought in to [facility] for revision because the knee has a crater exposing the prosthetic material and oozing serou- sanguinous fluid. Hardware removed earlier in February, by Dr. Castle, and Spacer in place since 02/20/17. At this time, no active bleeding. Mild serous drainage noted on dressing. TKR initially preformed due to severe DJD. Patient has been non-ambulatory since that time. Past Medical History Reviewed: Historical Data, Nursing Documentation, Vital Signs Vital Signs: Last Vital Signs Temp 97.4 F L 03/02/17 18:14 Pulse 90 03/02/17 18:14 Resp 16 03/02/17 18:14 BP 123/84 03/02/17 18:14 Pulse Ox 93 L 03/02/17 18:14 - Medical History PMH: Arthritis, CHF, Dementia, Fractures, HTN, Hypercholesterolemia, Hyperlipidemia, Hypothyroidism, Pneumonia, Chronic Kidney Disease - Surgical History Other surgeries: R TKR - Family History Family History: States: No Known Family Hx, Unknown Family Hx - Living Arrangements Living Arrangements: Longterm/Assist Lvng - Social History Current smoker - smoking cessation education provided: No Alcohol: None Drugs: Denies - Home Medications Home Medications: Ambulatory Orders Medication Instructions Recorded Acetaminophen [Tylenol 325mg tab] 650 mg PO Q6H PRN 05/23/16 Acetaminophen [Tylenol 325mg tab] 650 mg PO Q6H PRN 05/23/16 Citalopram [celeXA] 10 mg PO HS 05/23/16 Iron Polysaccharide [Ferrex-150] 150 mg PO DAILY 05/23/16 Magnesium Hydroxide [Milk Of 30 ml PO Q72 PRN 05/23/16 Magnesia] Pantoprazole Sodium [Protonix] 40 mg PO Q12H 05/23/16 Ursodiol [Marta] 250 mg PO BID 05/23/16 Donepezil [Aricept] 10 mg PO HS 12/10/16 Levothyroxine [Synthroid] 75 mcg PO DAILY 12/10/16 Memantine [Namenda] 10 mg PO BID 12/10/16 Multimineral/Multivitamin 1 tab PO DAILY 12/10/16 [Therapeutic-M Tab] Mupirocin 2% Ointment [Bactroban 1 appl TOP DAILY 12/10/16 Ointment] Propranolol [Inderal] 10 mg PO Q8H 12/10/16 traMADol [Ultram] 50 mg PO Q6 PRN tab 12/13/16 traMADol [Ultram] 100 mg PO Q6 PRN tab 12/13/16 Acetaminophen [Tylenol 325mg tab] 650 mg PO Q6 PRN tab 02/21/17 Acetaminophen [Tylenol 650 mg Supp] 650 mg WA ONCE sup 02/21/17 Bisacodyl [Dulcolax] 10 mg WA DAILY PRN sup 02/21/17 Docusate [Colace] 100 mg PO BID cap 02/21/17 Enoxaparin [Lovenox] 40 mg SC DAILY syr 02/21/17 Linezolid [Zyvox] 600 mg PO Q12 #28 tab 02/21/17 Pantoprazole [Protonix EC Tab] 40 mg PO DAILY ect 02/21/17 - Allergies Allergies/Adverse Reactions: Allergies Allergy/AdvReac Type Severity Reaction Status Date / Time No Known Allergies Allergy Verified 05/23/16 11:21 Review of Systems ROS Statement: Except As Marked, All Systems Reviewed And Found Negative Skin: Positive for: Other (possible surgical site infection) Physical Exam - Reviewed Nursing Documentation Reviewed: Yes Vital Signs Reviewed: Yes - Physical Exam Appears: Positive for: Well, Non-toxic, No Acute Distress Head Exam: Positive for: ATRAUMATIC, NORMAL INSPECTION, NORMOCEPHALIC Skin: Positive for: Normal Color, Warm, DRY Eye Exam: Positive for: EOMI, Normal appearance, PERRL ENT: Positive for: Normal ENT Inspection Neck: Positive for: Normal, Painless ROM Cardiovascular/Chest: Positive for: Regular Rate, Rhythm Respiratory: Positive for: CNT, Normal Breath Sounds Gastrointestinal/Abdominal: Positive for: Normal Exam, Bowel Sounds, Soft Back: Positive for: Normal Inspection Extremity: Positive for: Other (Right knee with [address] to incision site, mild surrounding erytrhema, ~ 5 cm ulcerated area, black incentive, [address] no active drainage at this time) Neurologic/Psych: Positive for: Alert, Oriented - ECG O2 Sat by Pulse Oximetry: 93 Medical Decision Making Medical Decision Making: Pt aferbile upon arrival to ED. IV access established and diagnostics ordered. Case discussed with Dr. Dickerson upon Pt's arrival. Arrangements made for admission to hospitalist Dr. Saeed, ID, consulted and case discussed. IV Antibiotics started after blood and wound cultures obtained and sent ED MDSr. Noriega, aware Disposition - Clinical Impression Clinical Impression: Wound dehiscence, Encounter for wound re-check - Patient ED Disposition Is Patient to be Admitted: Yes - Disposition Disposition Time: 18:53 Condition: STABLE Forms: [facility] (Kyrgyz) - POA Present On Arrival: Surgical Site Infection
[2017-03-02 18:59] LABS: BASO # 0.1 K/uL (0.0-0.2); BASO % 0.9 % (0.0-2.0); EOS # 0.2 K/uL (0.0-0.7); HEMATOCRIT 34.8 % (34.0-47.0); LYMPH # 1.4 K/uL (1.0-4.3); LYMPH % 21.9 % (20.0-40.0); MEAN CELL VOLUME 97.4 fl (81.0-99.0); MEAN CORPUSCULAR HEMOGLOBIN 32.6 pg (27.0-31.0); MEAN CORPUSCULAR HGB CONC 33.4 g/dL (33.0-37.0); MEAN PLATELET VOLUME 8.4 fl (7.2-11.7); MONO # 0.6 K/uL (0.0-0.8); MONO % 8.5 % (0.0-10.0); NEUT # 4.3 K/uL (1.8-7.0); NEUT % 65.7 % (50.0-75.0); RED CELL DISTRIBUTION WIDTH 17.4 % (11.5-14.5); WHITE BLOOD COUNT 6.5 K/uL (4.8-10.8)
[2017-03-02] MEDS ORDERED: Magnesium Hydroxide Susp 30 ml UD PO PRN (19:06)
[2017-03-02 19:09] LABS: ALB/GLOB RATIO 0.8 (1.0-2.1); ALKALINE PHOSPHATASE 179 U/L (38-126); ALT/SGPT 37 U/L (9-52); AST/SGOT 62 U/L (14-36); BILIRUBIN,TOTAL 0.6 mg/dl (0.2-1.3); BLOOD UREA NITROGEN 23 mg/dl (7-17); CALCIUM 9.7 mg/dL (8.4-10.2); CARBON DIOXIDE 28 mmol/L (22-30); CHLORIDE 106 mmol/L (98-107); GFR AFRICAN-AMERICAN > 60; GLUCOSE,RANDOM 105 mg/dL (65-105); SODIUM 142 mmol/l (132-148); TOTAL PROTEIN 6.7 G/DL (6.3-8.2)
[2017-03-02 19:18] LABS: VENOUS BLOOD GAS BASE EXCESS 5.8 mmol/L (0.0-2.0); VENOUS BLOOD GAS PCO2 44 mmHg (40-60); VENOUS BLOOD PH 7.45 (7.32-7.43)
--- NOTE | 2017-03-02 19:44 | CP.PCM.HP ---
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 The patient was transferred from [facility] on 02/16/2017 to [facility]. During her admission here at that time she had Removal of Septic TKR and placement of antibiotic spacer on 02/20/2017 by orthopedics, Dr. Castle. Wound vac was also placed. The patient was then discharged to the halfway on 02/21/2017. According to halfway reports, the patients knee continued to be erythematous and edematous and continued to bleed. Due to concern for infection , the patient was transferred back to the ED today. Here in the ED, the knee was noted to have no active bleeding. There was mild serous drainage noted on her dressing. She is noted to be hemodynamically stable on admission. Laboratory results show WBC of 6.5, Hg 11.7, platelet count of 105. Chemistry panel is remarkable for a BUN of 23, Cr of 0.9, AST of 62, Alkaline poh of 179, Albumin of 2.9. The patient is to be admitted for IV antibiotics, with orthopedic consultation with Dr. Castle, ID consultation with Dr. Saeed, and Plastics consultation with Dr. Dickerson. Patient is demented and unable to give a review of systems. Present on Admission - Present on Admission Any Indicators Present on Admission: No Review of Systems - Review of Systems Systems not reviewed;Unavailable: Dementia Past Patient History - Infectious Disease Hx of Infectious Diseases: None - Tetanus Immunizations Tetanus Immunization: Unknown - Past Medical History & Family History Past Medical History?: Yes - Past Social History Alcohol: None Drugs: Denies - CARDIAC Hx Congestive Heart Failure: Yes Hx Hypercholesterolemia: Yes Hx Hypertension: Yes - PULMONARY Hx Pneumonia: Yes - NEUROLOGICAL Hx Dementia: Yes - HEENT Hx HEENT Problems: No - RENAL Hx Chronic Kidney Disease: Yes - ENDOCRINE/METABOLIC Hx Hypothyroidism: Yes - HEMATOLOGICAL/ONCOLOGICAL Hx Blood Disorders: Yes Hx Cancer: Yes (Neoplasm colon) - INTEGUMENTARY Hx Dermatological Problems: No - MUSCULOSKELETAL/RHEUMATOLOGICAL Hx Arthritis: Yes Hx Fractures: Yes - GASTROINTESTINAL Hx Liver Failure: Yes (liver cirrhosis) Other/Comment: gi hemorrhage/abdominal mass /bleeding esophageal varices - GENITOURINARY/GYNECOLOGICAL Hx Genitourinary Disorders: Yes Hx Ovarian Cancer: Yes (malignant ovarian tumor) Hx Urinary Tract Infection: Yes - PSYCHIATRIC Hx Psychophysiologic Disorder: Yes Hx Substance Use: No - SURGICAL HISTORY Hx Surgeries: Yes Hx Orthopedic Surgery: Yes (rt knee replacement 20 yrs ago) - ANESTHESIA Hx Anesthesia: Yes Hx Anesthesia Reactions: No Meds Allergies/Adverse Reactions: Allergies Allergy/AdvReac Type Severity Reaction Status Date / Time No Known Allergies Allergy Verified 05/23/16 11:21 Physical Exam - Additional Findings Additional findings: Physical exam: Constitutional- cooperative, awake, demented Head- NCAT, PERRL Eye- PERRL, normal accommodation ENT- normal exam, MMM. Neck- normal inspection, supple, no JVD Respiratory- CTAB, no wheezes rales rhonchi Cardiovascular- RRR, +S1, +S2 no MRG GI/Abdominal- normal bowel sounds, soft, no mass, no hsm Skin- warm, dry Extremities Exam- right knee with morris in place, erythema around surgical site, no bleeding noted, scant serosanguinous drainage. normal capillary refill , Pedal pulses intact bilaterally Neurological Exam- alert, stable gait Psych- normal mood, normal affect Results - Vital Signs Recent Vital Signs: Last Vital Signs Temp 97.4 F L 03/02/17 18:14 Pulse 93 H 03/02/17 18:44 Resp 16 03/02/17 18:14 BP 123/84 03/02/17 18:14 Pulse Ox 93 L 03/02/17 18:53 - Labs Result Diagrams: 03/02/17 18:56 03/02/17 18:56 Labs: Laboratory Results - last 24 hr 03/02/17 03/02/17 03/02/17 18:56 18:56 19:10 WBC 6.5 RBC 3.58 L Hgb 11.7 L Hct 34.8 MCV 97.4 MCH 32.6 H MCHC 33.4 RDW 17.4 H Plt Count 105 L MPV 8.4 Neut % (Auto) 65.7 Lymph % (Auto) 21.9 Green % (Auto) 8.5 Eos % (Auto) 3.0 Baso % (Auto) 0.9 Neut # 4.3 Lymph # 1.4 Green # 0.6 Eos # 0.2 Baso # 0.1 pO2 50 VBG pH 7.45 H VBG pCO2 44 VBG HCO3 29.2 VBG Total CO2 32.0 H VBG O2 Sat (Calc) 92.8 H VBG Base Excess 5.8 H VBG Potassium 4.0 Glucose 108 H Lactate 2.2 H FiO2 21.0 Sodium 142 140.0 Potassium 4.0 Chloride 106 107.0 Carbon Dioxide 28 Anion Gap 13 BUN 23 H Creatinine 0.9 Est GFR ( Amer) > 60 Est GFR (Non-Af Amer) 59 Random Glucose 105 Calcium 9.7 Total Bilirubin 0.6 AST 62 H D ALT 37 Alkaline Phosphatase 179 H Total Protein 6.7 Albumin 2.9 L Globulin 3.8 Albumin/Globulin Ratio 0.8 L Venous Blood Potassium 4.0 Assessment & Plan - Assessment and Plan (Free Text) Plan: 1) Infection of right knee joint - s/p Removal of Septic EKR and placement of antibiotic spacer on 02/20/2017 - Dr. Castle on consultation for orthopedics - Dr. Dickerson on consultation for plastic surgery - Dr. Saeed on consultation for ID- recommends Vanomycin and Ertapenem which will be given 2) History of TKR of right knee 20 years ago - Chronic 3) DM2 - Chronic Accucheck with coverage 4) Dementia - continue Aricept and Namenda 5) Hypertension - Chronic 6) Liver cirrhosis - continue Propranolol 7) Hypothyroidism - continue Levothyroxine 8) Constipation - chronic - Continue Colace, dulcolax 9) DVT prophylaxis - Heparin
[2017-03-02] MEDS ORDERED: Vancomycin 1 g Inj ONE (20:11)
[2017-03-03 02:18] VITALS: BMI 26.4
[2017-03-03 06:16] LABS: BLOOD UREA NITROGEN 24 mg/dl (7-17); CALCIUM 9.5 mg/dL (8.4-10.2); CARBON DIOXIDE 29 mmol/L (22-30); CHLORIDE 107 mmol/L (98-107); GFR AFRICAN-AMERICAN > 60; GLUCOSE,RANDOM 102 mg/dL (65-105); HEMATOCRIT 33.1 % (34.0-47.0); MEAN CELL VOLUME 99.8 fl (81.0-99.0); MEAN CORPUSCULAR HEMOGLOBIN 32.8 pg (27.0-31.0); MEAN CORPUSCULAR HGB CONC 32.9 g/dL (33.0-37.0); POTASSIUM 3.9 MMOL/L (3.6-5.0); RED CELL DISTRIBUTION WIDTH 17.7 % (11.5-14.5); SODIUM 143 mmol/l (132-148); WHITE BLOOD COUNT 7.8 K/uL (4.8-10.8)
[2017-03-03] MEDS: Levothyroxine 75 MCG TAB PO SCH (08:52)
[2017-03-03] MEDS: Pantoprazole 40 mg EC Tab PO SCH (08:52)
[2017-03-03] MEDS: Multivitamin With Minerals Tab PO SCH (08:53)
[2017-03-03] MEDS ORDERED: Enoxaparin 40 mg Syringe SC SCH (09:00)
--- NOTE | 2017-03-03 09:22 | RAD ---
PROCEDURE: CHEST RADIOGRAPH, 1 VIEW HISTORY: med screening COMPARISON: 02/20/2017 FINDINGS: LUNGS: Linear scar/atelectasis at right base. No infiltrate. PLEURA: No pneumothorax or pleural fluid seen. CARDIOVASCULAR: Normal. OSSEOUS STRUCTURES: No significant abnormalities. VISUALIZED UPPER ABDOMEN: Normal. OTHER FINDINGS: None. IMPRESSION: Right basilar linear scar/ atelectasis. No other significant abnormality.
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
--- NOTE | 2017-03-03 11:30 | CP.PCM.PN ---
Subjective - Date & Time of Evaluation Date of Evaluation: 03/03/17 Time of Evaluation: 10:45 - Subjective Subjective: Pt is afebrile denies CP no SOB no CARRERA mild abd discomfort and distention very mild right knee pain on ROM Objective - Vital Signs/Intake and Output Vital Signs (last 24 hours): Temp Pulse Resp BP Pulse Ox 98.6 F 75 19 93/56 L 100 03/03/17 08:00 03/03/17 08:11 03/03/17 08:00 03/03/17 08:00 03/03/17 08:00 Intake and Output: 03/03/17 03/03/17 06:59 18:59 Intake Total 70 Output Total 2 Balance 68 - Medications Medications: Current Medications Acetaminophen (Tylenol 325mg Tab) 650 mg PO Q6 PRN PRN Reason: Fever >100.4 F Acetaminophen (Tylenol 325mg Tab) 650 mg PO Q6H PRN PRN Reason: temp >101 Acetaminophen (Tylenol 325mg Tab) 650 mg PO Q6H PRN PRN Reason: Pain, Mild (1-3) Bisacodyl (Dulcolax) 10 mg [place] DAILY PRN PRN Reason: Constipation Citalopram Hydrobromide (Celexa) 10 mg PO HS [facility] Last Admin: 03/02/17 23:33 Dose: 10 mg Docusate Sodium (Colace) 100 mg PO BID [facility] Last Admin: 03/03/17 08:51 Dose: Not Given Donepezil HCl (Aricept) 10 mg PO HS [facility] Last Admin: 03/02/17 23:33 Dose: 10 mg Enoxaparin Sodium (Lovenox) 40 mg [place] DAILY [facility] PRN Reason: Protocol Last Admin: 03/03/17 08:49 Dose: 40 mg Ferrous Sulfate (Feosol) 325 mg PO DAILY [facility] Last Admin: 03/03/17 08:48 Dose: 325 mg Vancomycin HCl 1 gm/ Sodium (Chloride) 250 mls @ 166.667 mls/hr IV Q12 [facility] PRN Reason: Protocol Last Admin: 03/03/17 08:59 Dose: 166.667 mls/hr Meropenem 500 mg/ Sodium (Chloride) 100 mls @ 100 mls/hr IVPB Q8 [facility] PRN Reason: Protocol Levothyroxine Sodium (Synthroid) 75 mcg PO DAILY [facility] Last Admin: 03/03/17 08:52 Dose: 75 mcg Magnesium Hydroxide (Milk Of Magnesia) 30 ml PO Q72 PRN PRN Reason: Constipation Memantine (Namenda) 10 mg PO BID [facility] Last Admin: 03/03/17 08:49 Dose: 10 mg Multivitamins/Minerals (Therapeutic-M Tab) 1 tab PO DAILY [facility] Last Admin: 03/03/17 08:53 Dose: 1 tab Mupirocin (Bactroban Ointment) 1 applic TOP DAILY [facility] Last Admin: 03/03/17 08:51 Dose: 1 applic Pantoprazole Sodium (Protonix Ec Tab) 40 mg PO DAILY [facility] Last Admin: 03/03/17 08:52 Dose: 40 mg Propranolol HCl (Inderal) 10 mg PO Q8H [facility] Last Admin: 03/03/17 03:16 Dose: 10 mg Tramadol HCl (Ultram) 50 mg PO Q6 PRN PRN Reason: Pain, moderate (4-7) Tramadol HCl (Ultram) 100 mg PO Q6 PRN PRN Reason: Pain, severe (8-10) Ursodiol (Actigall) 300 mg PO BID [facility] Last Admin: 03/03/17 08:52 Dose: 300 mg - Labs Labs: 03/03/17 05:05 03/03/17 05:05 - Constitutional Appears: No Acute Distress, Chronically Ill - Head Exam Head Exam: NORMAL INSPECTION, NORMOCEPHALIC - Eye Exam Eye Exam: EOMI, Normal appearance Pupil Exam: NORMAL ACCOMODATION - ENT Exam ENT Exam: Mucous Membranes Dry, Normal External Ear Exam - Neck Exam Neck Exam: Full ROM. absent: Meningismus - Respiratory Exam Respiratory Exam: NORMAL BREATHING PATTERN. absent: Respiratory Distress - Cardiovascular Exam Cardiovascular Exam: REGULAR RHYTHM, +S1, +S2 - GI/Abdominal Exam GI & Abdominal Exam: Distended, Soft, Tenderness, Normal Bowel Sounds - Extremities Exam Extremities Exam: Normal Capillary Refill. 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 During her last admission here , she had Removal of Septic TKR and placement of antibiotic spacer on 02/20/2017 by orthopedics, Dr. Castle. Wound vac was also placed. The patient was then discharged to the retirement on 02/21/2017. According to retirement reports, the patients knee continued to be erythematous and edematous and continued to bleed. Due to concern for infection , the patient was transferred back to the ED. In the ED, th knee was noted to have no active bleeding. There was mild serous drainage noted on her dressing. She is noted to be hemodynamically stable on admission. The patient was admitted for IV antibiotics, with orthopedic consultation with Dr. Castle, ID consultation with Dr. Lomas, and Plastics consultation with Dr. Dickerson. 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 Small Wound Dehiscence with Serosanguinous drainage - plastic Surgery consulted - Dr Dickerson rec Silvadene cream (4) Anemia/Thrombocytopenia Status: Chronic prob sec to Cirrhosis, cannot r/o MDS monitor (5) DM2 (diabetes mellitus, type 2) Status: Chronic Accucheck with coverage 6) Dementia Status: Chronic Pt is on Namenda (7) HTN (hypertension) Status: Chronic hold Lisinopril and Inderal due to low BP (8) Liver cirrhosis Status: Chronic hold Propranolol as BP low 9. Hypothyroidism cont Levothyroxine (10) DVT prophylaxis Status: Acute SCD Lovenox monitor Platelet closely due to sl thrombocytopenia
[2017-03-03] MEDS: Meropenem 500 MG in Sodium Chloride 0.9% 100 ML IVPB SCH ×2 (11:56→17:39)
--- NOTE | 2017-03-03 12:11 | CARD ---
APPROVED REPORT EKG Measurement Heart [id number] <Conclusion> Normal sinus rhythm Normal ECG
--- NOTE | 2017-03-03 14:53 | CP.PCM.CON ---
History of Present Illness - History of Present Illness History of Present Illness: Rachel Caraballo is an 86 year old female who was admitted from [facility] yesterday due persistent drainage from the suture line over the right knee after having undergone removal of a total knee prosthesis and insertion of a spacer. Her past medical history is extensive suffering from Ovarian Ca, HTN, Cirrhosis, and D.M. PE: T = 98,7 WBC = 7.8, H/H = 10.9/31.1. Examination of the right leg does not demonstrate any active bleeding or drainage. There's a 1.5 cm open wound anterior to the mid-staple line. There is also superficial eschar present anterior to the inferior-most portion of the staple line. IMP: Partial wound dehiscence over the spacer. RECOMMENDATION: Conservative care only at this time. Cleanse the wound and staple line with NSS and apply a Silvadene Occlusive Dressing daily. Thank you, Jose Dickerson M.D. Past Patient History - Infectious Disease Hx of Infectious Diseases: None - Tetanus Immunizations Tetanus Immunization: Unknown - Past Medical History & Family History Past Medical History?: Yes - Past Social History Smoking Status: Never Smoked - CARDIAC Hx Congestive Heart Failure: Yes Hx Hypercholesterolemia: Yes Hx Hypertension: Yes - PULMONARY Hx Pneumonia: Yes - NEUROLOGICAL Hx Alzheimer's Disease: Yes Hx Dementia: Yes - HEENT Hx HEENT Problems: No - RENAL Hx Chronic Kidney Disease: Yes - ENDOCRINE/METABOLIC Hx Diabetes Mellitus Type 2: Yes Hx Hypothyroidism: Yes - HEMATOLOGICAL/ONCOLOGICAL Hx Blood Disorders: Yes Hx AIDS: No Hx Cancer: Yes (Neoplasm colon) Hx Cirrhosis: Yes Hx Human Immunodeficiency Virus (HIV): No - INTEGUMENTARY Hx Dermatological Problems: No - MUSCULOSKELETAL/RHEUMATOLOGICAL Hx Arthritis: Yes Hx Degenerative Joint Disease: Yes Hx Falls: Yes (X 1) Hx Fractures: Yes - GASTROINTESTINAL Hx Liver Failure: Yes (liver cirrhosis) Other/Comment: gi hemorrhage/abdominal mass /bleeding esophageal varices - GENITOURINARY/GYNECOLOGICAL Hx Genitourinary Disorders: Yes Hx Ovarian Cancer: Yes (malignant ovarian tumor) Hx Urinary Tract Infection: Yes - PSYCHIATRIC Hx Psychophysiologic Disorder: Yes Hx Substance Use: No - SURGICAL HISTORY Hx Surgeries: Yes Hx Orthopedic Surgery: Yes (rt knee replacement 20 yrs ago) - ANESTHESIA Hx Anesthesia: Yes Hx Anesthesia Reactions: No Hx Malignant Hyperthermia: No Has any member of the family had a problem w/ anesthesia?: No Meds Allergies/Adverse Reactions: Allergies Allergy/AdvReac Type Severity Reaction Status Date / Time No Known Allergies Allergy Verified 05/23/16 11:21 - Medications Medications: Current Medications Acetaminophen (Tylenol 325mg Tab) 650 mg PO Q6 PRN PRN Reason: Fever >100.4 F Acetaminophen (Tylenol 325mg Tab) 650 mg PO Q6H PRN PRN Reason: temp >101 Acetaminophen (Tylenol 325mg Tab) 650 mg PO Q6H PRN PRN Reason: Pain, Mild (1-3) Bisacodyl (Dulcolax) 10 mg [place] DAILY PRN PRN Reason: Constipation Citalopram Hydrobromide (Celexa) 10 mg PO HS [facility] Last Admin: 03/02/17 23:33 Dose: 10 mg Docusate Sodium (Colace) 100 mg PO BID [facility] Last Admin: 03/03/17 08:51 Dose: Not Given Donepezil HCl (Aricept) 10 mg PO [facility] Last Admin: 03/02/17 23:33 Dose: 10 mg Enoxaparin Sodium (Lovenox) 40 mg SC DAILY [facility] PRN Reason: Protocol Last Admin: 03/03/17 08:49 Dose: 40 mg Ferrous Sulfate (Feosol) 325 mg PO DAILY [facility] Last Admin: 03/03/17 08:48 Dose: 325 mg Vancomycin HCl 1 gm/ Sodium (Chloride) 250 mls @ 166.667 mls/hr IV Q12 [facility] PRN Reason: Protocol Last Admin: 03/03/17 08:59 Dose: 166.667 mls/hr Meropenem 500 mg/ Sodium (Chloride) 100 mls @ 100 mls/hr IVPB Q8 [facility] PRN Reason: Protocol Last Admin: 03/03/17 11:56 Dose: 100 mls/hr Levothyroxine Sodium (Synthroid) 75 mcg PO DAILY [facility] Last Admin: 03/03/17 08:52 Dose: 75 mcg Magnesium Hydroxide (Milk Of Magnesia) 30 ml PO Q72 PRN PRN Reason: Constipation Memantine (Namenda) 10 mg PO BID [facility] Last Admin: 03/03/17 08:49 Dose: 10 mg Multivitamins/Minerals (Therapeutic-M Tab) 1 tab PO DAILY [facility] Last Admin: 03/03/17 08:53 Dose: 1 tab Mupirocin (Bactroban Ointment) 1 applic TOP DAILY [facility] Last Admin: 03/03/17 08:51 Dose: 1 applic Pantoprazole Sodium (Protonix Ec Tab) 40 mg PO DAILY [facility] Last Admin: 03/03/17 08:52 Dose: 40 mg Propranolol HCl (Inderal) 10 mg PO Q8H [facility] Last Admin: 03/03/17 12:04 Dose: Not Given Tramadol HCl (Ultram) 50 mg PO Q6 PRN PRN Reason: Pain, moderate (4-7) Tramadol HCl (Ultram) 100 mg PO Q6 PRN PRN Reason: Pain, severe (8-10) Ursodiol (Actigall) 300 mg PO BID [facility] Last Admin: 03/03/17 08:52 Dose: 300 mg Results - Vital Signs Recent Vital Signs: Last Vital Signs Temp 98.7 F 03/03/17 12:00 Pulse 73 03/03/17 12:04 Resp 19 03/03/17 12:00 BP 92/51 L 03/03/17 12:04 Pulse Ox 100 03/03/17 12:00 - Labs Result Diagrams: 03/03/17 05:05 03/03/17 05:05 Labs: Laboratory Results - last 24 hr 03/02/17 03/02/17 03/02/17 18:56 18:56 19:10 WBC 6.5 RBC 3.58 L Hgb 11.7 L Hct 34.8 MCV 97.4 MCH 32.6 H MCHC 33.4 RDW 17.4 H Plt Count 105 L MPV 8.4 Neut % (Auto) 65.7 Lymph % (Auto) 21.9 Gulf % (Auto) 8.5 Eos % (Auto) 3.0 Baso % (Auto) 0.9 Neut # 4.3 Lymph # 1.4 Gulf # 0.6 Eos # 0.2 Baso # 0.1 pO2 50 VBG pH 7.45 H VBG pCO2 44 VBG HCO3 29.2 VBG Total CO2 32.0 H VBG O2 Sat (Calc) 92.8 H VBG Base Excess 5.8 H VBG Potassium 4.0 Glucose 108 H Lactate 2.2 H FiO2 21.0 Sodium 142 140.0 Potassium 4.0 Chloride 106 107.0 Carbon Dioxide 28 Anion Gap 13 BUN 23 H Creatinine 0.9 Est GFR ( Amer) > 60 Est GFR (Non-Af Amer) 59 POC Glucose (mg/dL) Random Glucose 105 Calcium 9.7 Total Bilirubin 0.6 AST 62 H D ALT 37 Alkaline Phosphatase 179 H Total Protein 6.7 Albumin 2.9 L Globulin 3.8 Albumin/Globulin Ratio 0.8 L Venous Blood Potassium 4.0 03/02/17 03/03/17 03/03/17 22:57 05:05 05:05 WBC 7.8 RBC 3.31 L Hgb 10.9 L Hct 33.1 L MCV 99.8 H D MCH 32.8 H MCHC 32.9 L RDW 17.7 H Plt Count 90 L MPV Neut % (Auto) Lymph % (Auto) Gulf % (Auto) Eos % (Auto) Baso % (Auto) Neut # Lymph # Gulf # Eos # Baso # pO2 VBG pH VBG pCO2 VBG HCO3 VBG Total CO2 VBG O2 Sat (Calc) VBG Base Excess VBG Potassium Glucose Lactate FiO2 Sodium 143 Potassium 3.9 Chloride 107 Carbon Dioxide 29 Anion Gap 10 BUN 24 H Creatinine 0.8 Est GFR ( Amer) > 60 Est GFR (Non-Af Amer) > 60 POC Glucose (mg/dL) 119 H Random Glucose 102 Calcium 9.5 Total Bilirubin AST ALT Alkaline Phosphatase Total Protein Albumin Globulin Albumin/Globulin Ratio Venous Blood Potassium
[2017-03-03] MEDS: Silver Sulfadiazine 1% Cream (20 gm) TOP SCH (16:29)
[2017-03-03] MEDS ORDERED: Sucralfate 1 gm/10 ml Oral Susp UD PO ONE (17:12)
[2017-03-03] MEDS ORDERED: Meropenem 500 MG in Sodium Chloride 0.9% 100 ML IVPB SCH (18:40)
--- NOTE | 2017-03-03 19:49 | CP.PCM.PN ---
Subjective - Date & Time of Evaluation Date of Evaluation: 03/03/17 Time of Evaluation: 19:48 - Subjective Subjective: I D NOTE PATIENT KNOWN TO ME FROM PREVIOUS ADMISSION RX c VANCOMYCIN/MAXIPEME ADVISED LAST NIGHT Objective - Vital Signs/Intake and Output Vital Signs (last 24 hours): Temp Pulse Resp BP Pulse Ox 97.4 F L 80 20 98/60 L 100 03/03/17 16:00 03/03/17 18:51 03/03/17 18:35 03/03/17 18:51 03/03/17 18:35 Intake and Output: 03/03/17 03/04/17 18:59 06:59 Intake Total 1310 Output Total 3 Balance 1307 - Medications Medications: Current Medications Acetaminophen (Tylenol 325mg Tab) 650 mg PO Q6 PRN PRN Reason: Fever >100.4 F Acetaminophen (Tylenol 325mg Tab) 650 mg PO Q6H PRN PRN Reason: temp >101 Acetaminophen (Tylenol 325mg Tab) 650 mg PO Q6H PRN PRN Reason: Pain, Mild (1-3) Bisacodyl (Dulcolax) 10 mg [place] DAILY PRN PRN Reason: Constipation Citalopram Hydrobromide (Celexa) 10 mg PO HS [facility] Last Admin: 03/02/17 23:33 Dose: 10 mg Docusate Sodium (Colace) 100 mg PO BID [facility] Last Admin: 03/03/17 16:44 Dose: Not Given Enoxaparin Sodium (Lovenox) 40 mg [place] DAILY [facility] PRN Reason: Protocol Last Admin: 03/03/17 08:49 Dose: 40 mg Ferrous Sulfate (Feosol) 325 mg PO DAILY [facility] Last Admin: 03/03/17 08:48 Dose: 325 mg Vancomycin HCl 1 gm/ Sodium (Chloride) 250 mls @ 166.667 mls/hr IV Q12 [facility] PRN Reason: Protocol Last Admin: 03/03/17 08:59 Dose: 166.667 mls/hr Meropenem 500 mg/ Sodium (Chloride) 100 mls @ 100 mls/hr IVPB Q8 [facility] PRN Reason: Protocol Last Admin: 03/03/17 17:39 Dose: 100 mls/hr Dextrose/Sodium Chloride (Dextrose 5%-0.9% Ns 500 Ml) 1,000 mls @ 50 mls/hr IV .Q20H [facility] Stop: 03/04/17 14:44 Last Admin: 03/03/17 19:05 Dose: 50 mls/hr Lactobacillus Acidophilus (Bacid Acidophilus) 1 cap PO BID [facility] Levothyroxine Sodium (Synthroid) 75 mcg PO DAILY [facility] Last Admin: 03/03/17 08:52 Dose: 75 mcg Magnesium Hydroxide (Milk Of Magnesia) 30 ml PO Q72 PRN PRN Reason: Constipation Memantine (Namenda) 10 mg PO BID [facility] Last Admin: 03/03/17 16:45 Dose: 10 mg Multivitamins/Minerals (Therapeutic-M Tab) 1 tab PO DAILY [facility] Last Admin: 03/03/17 08:53 Dose: 1 tab Pantoprazole Sodium (Protonix Ec Tab) 40 mg PO DAILY [facility] Last Admin: 03/03/17 08:52 Dose: 40 mg Propranolol HCl (Inderal) 10 mg PO Q8H [facility] Last Admin: 03/03/17 18:51 Dose: Not Given Silver Sulfadiazine (Silvadene 1% 20 Gm) 1 ea TOP DAILY [facility] Last Admin: 03/03/17 16:29 Dose: 1 applic Tramadol HCl (Ultram) 50 mg PO Q6 PRN PRN Reason: Pain, moderate (4-7) Tramadol HCl (Ultram) 100 mg PO Q6 PRN PRN Reason: Pain, severe (8-10) Ursodiol (Actigall) 300 mg PO BID [facility] Last Admin: 03/03/17 16:31 Dose: 300 mg - Labs Labs: 03/03/17 05:05 03/03/17 05:05
[2017-03-04 05:41] LABS: HEMATOCRIT 32.2 % (34.0-47.0); MEAN CELL VOLUME 101.5 fl (81.0-99.0); MEAN CORPUSCULAR HEMOGLOBIN 33.1 pg (27.0-31.0); MEAN CORPUSCULAR HGB CONC 32.6 g/dL (33.0-37.0); RED CELL DISTRIBUTION WIDTH 18.3 % (11.5-14.5); WHITE BLOOD COUNT 5.8 K/uL (4.8-10.8)
[2017-03-04] MEDS: Lactobacillus Acidophilus 500 MU Cap PO SCH ×2 (08:32→16:27)
[2017-03-04] MEDS: Multivitamin With Minerals Tab PO SCH (08:33)
[2017-03-04] MEDS: Silver Sulfadiazine 1% Cream (20 gm) TOP SCH (08:35)
[2017-03-04] MEDS: Pantoprazole 40 mg EC Tab PO SCH (08:35)
[2017-03-04] MEDS: Levothyroxine 75 MCG TAB PO SCH (08:37)
--- NOTE | 2017-03-04 11:07 | CP.CCUPN ---
<Chris Gonzalez - Last Filed: 03/04/17 11:48> CCU Subjective - Physician Review Subjective (Free Text): 03/04/17 11:03 Patient seen and examined at bedside this morning. Patient NAD but complains of mild abdominal discomfort and right knee pain. Right knee cleaned and re- wrapped this morning. Patient tolerating PO and voiding freely. Patient denies headaches, chest pain, SOB, nausea, vomiting, or fever. Critical Care Time Spent (in minutes): 35 CCU Objective - Vital Signs / Intake & Output Vital Signs (Last 4 hours): Vital Signs Temp Pulse Resp BP Pulse Ox 03/04/17 09:00 90 30 H 118/52 L 100 03/04/17 08:00 99.1 F 73 21 132/60 100 Intake and Output (Last 8hrs): Intake & Output 03/03/17 03/04/17 03/04/17 22:59 06:59 14:59 Intake Total 1410 460 640 Output Total 3 Balance 1407 460 640 Intake: IV 100 400 100 Intake, Piggyback 450 300 Oral 860 60 240 Output: Urine/Stool Mix 3 - Physical Exam Head: Positive for: Atraumatic, Normocephalic Pupils: Positive for: PERRL Extroacular Muscles: Positive for: EOMI Conjunctiva: Positive for: Normal Ears: Positive for: Normal Mouth: Positive for: Dry Neck: Positive for: Normal Range of Motion. Negative for: Meningeal Signs Respiratory/Chest: Positive for: Clear to Auscultation. Negative for: Respiratory Distress, Accessory Muscle Use, Tachypneic Cardiovascular: Positive for: Regular Rate and Rhythm, Normal S1, S2. Negative for: Tachycardic, Bradycardic Abdomen: Positive for: Tenderness, Distention, Normal Bowel Sounds Upper Extremity: Positive for: Normal Inspection, Normal ROM Lower Extremity: Positive for: Normal Inspection, Other (right knee wrapped, clean, and dry). Negative for: CALF TENDERNESS, Swelling Neurological: Positive for: GCS=15, Speech Normal Skin: Positive for: Warm, Dry, Normal Color Psychiatric: Positive for: Alert - Medications Active Medications: Active Medications Generic Name Dose Route Start Last Admin Trade Name Freq PRN Reason Stop Dose Admin Acetaminophen 650 mg 03/02/17 19:10 Tylenol 325mg Tab PO Q6 PRN Fever >100.4 F Acetaminophen 650 mg 03/02/17 19:10 Tylenol 325mg Tab PO Q6H PRN temp >101 Acetaminophen 650 mg 03/02/17 19:10 Tylenol 325mg Tab PO Q6H PRN Pain, Mild (1-3) Ascorbic Acid 500 mg 03/04/17 17:00 Vitamin C 500 Mg Tab PO BID CAREN Bisacodyl 10 mg 03/02/17 19:06 Dulcolax [place] DAILY PRN Constipation Citalopram Hydrobromide 10 mg 03/02/17 22:00 03/03/17 21:58 Celexa PO 10 mg HS CAREN Administration Docusate Sodium 100 mg 03/03/17 09:00 03/04/17 10:15 Colace PO Not Given BID CAREN Ferrous Sulfate 325 mg 03/03/17 09:00 03/04/17 08:34 Feosol PO 325 mg DAILY CAREN Administration Vancomycin HCl 1 gm/ Sodium 250 mls @ 166.667 mls/hr 03/02/17 18:40 03/04/17 08:37 Chloride IV 166.667 mls/hr Q12 CAREN Administration Protocol Dextrose/Sodium Chloride 1,000 mls @ 50 mls/hr 03/03/17 18:45 03/03/17 19:05 Dextrose 5%-0.9% Ns 500 Ml IV 03/04/17 14:44 50 mls/hr .Q20H CAREN Administration Cefepime HCl 2 gm/ Dextrose 50 mls @ 50 mls/hr 03/04/17 09:00 03/04/17 09:36 IV 50 mls/hr Q12 CAREN Administration Protocol Lactobacillus Acidophilus 1 cap 03/04/17 09:00 03/04/17 08:32 Bacid Acidophilus PO 1 cap BID CAREN Administration Levothyroxine Sodium 75 mcg 03/03/17 09:00 03/04/17 08:37 Synthroid PO 75 mcg DAILY CAREN Administration Magnesium Hydroxide 30 ml 03/02/17 19:06 Milk Of Magnesia PO Q72 PRN Constipation Megestrol Acetate 400 mg 03/05/17 09:00 Megace PO DAILY CAREN Memantine 10 mg 03/03/17 09:00 03/04/17 08:33 Namenda PO 10 mg BID CAREN Administration Multivitamins/Minerals 1 tab 03/03/17 09:00 03/04/17 08:33 Therapeutic-M Tab PO 1 tab DAILY CAREN Administration Pantoprazole Sodium 40 mg 03/03/17 09:00 03/04/17 08:35 Protonix Ec Tab PO 40 mg DAILY CAREN Administration Propranolol HCl 10 mg 03/02/17 19:15 03/03/17 18:51 Inderal PO Not Given Q8H CAREN Silver Sulfadiazine 1 ea 03/03/17 15:15 03/04/17 08:35 Silvadene 1% 20 Gm TOP 1 applic DAILY CAREN Administration Tramadol HCl 50 mg 03/02/17 19:06 Ultram PO Q6 PRN Pain, moderate (4-7) Tramadol HCl 100 mg 03/02/17 19:06 Ultram PO Q6 PRN Pain, severe (8-10) Ursodiol 300 mg 03/03/17 09:00 03/04/17 08:32 Actigall PO 300 mg BID CAREN Administration - Patient Studies Lab Studies: Microbiology Studies 03/02/17 Unknown MRSA Culture (Admit) - Final Naris MRSA NOT DETECTED 03/02/17 19:00 Gram Stain - Final Knee - Right Wound Culture - Preliminary NO GROWTH AFTER 24 HOURS 03/02/17 19:05 Blood Culture - Preliminary Blood-Venous NO GROWTH AFTER 24 HOURS 03/02/17 18:56 Blood Culture - Preliminary Blood-Venous NO GROWTH AFTER 24 HOURS Lab Studies 03/04/17 03/03/17 Range/Units 04:20 14:20 WBC 5.8 (4.8-10.8) K/uL RBC 3.17 L (3.80-5.20) Mil/uL Hgb 10.5 L (12.0-16.0) g/dL Hct 32.2 L (34.0-47.0) % MCV 101.5 H (81.0-99.0) fl MCH 33.1 H (27.0-31.0) pg MCHC 32.6 L (33.0-37.0) g/dL RDW 18.3 H (11.5-14.5) % Plt Count 66 L D (130-400) K/uL C. difficile Ag & Toxin Negative (NEGATIVE) Laboratory Results - last 24 hr 03/03/17 03/04/17 14:20 04:20 WBC 5.8 RBC 3.17 L Hgb 10.5 L Hct 32.2 L MCV 101.5 H MCH 33.1 H MCHC 32.6 L RDW 18.3 H Plt Count 66 L D C. difficile Ag & Toxin Negative Fingerstick Blood Sugar Results: 119 Review of Systems - Review of Systems All systems: reviewed and no additional remarkable complaints except - Constitutional Constitutional: absent: Fever, Chills, Sweats - EENT Eyes: absent: Change in Vision - Cardiovascular Cardiovascular: absent: Chest Pain, Palpitations - Respiratory Respiratory: absent: Cough, Dyspnea, Hemoptysis - Gastrointestinal Gastrointestinal: Abdominal Pain. 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 Plan: Infection of prosthetic right knee joint - s/p recent removal of Septic TKR and placement of Antibiotic Spacer 02/20/2017 - started on vanc and meropenem in ED - DC'ed meropenem - hemodynamically stable with no signs of sepsis - WBC 5.8 - IVF D5-NS @ 50mL/hr - vancomycin 1 gm IV Q12 day 3 - cefepime 2 gm IV Q12 day 1 - tylenol 650 mg PO Q6 prn for fever and pain - follow up vanc trough - Orthopaedic consult, Dr Castle - Plastic Surgery, Dr. Dickerson, recommendations appreciated - ID consult, Dr Saeed, recommendations appreciated Pain management - tylenol 650 mg PO prn for mild pain - tramadol 50 mg PO Q6 prn for moderate pain - tramadol 100 mg PO Q6 prn for severe pain Small Wound Dehiscence with Serosanguinous drainage - clean wound and staple line w/ NSS - silvadene 1% TOP daily w/ occlusive dressing Anemia/Thrombocytopenia - most likely secondary to cirrhosis, cannot r/o MDS - ferrous sulfate 325 mg PO daily - continue to monitor CBC Constipation - bisacodyl 10 mg [place] prn - magnesium hydroxide 30 mL PO Q72 prn - colace 100 mg PO BID DM type 2 - Accucheck with coverage Dementia - Memantine 10 mg PO BID Depression - citalopram 10 mg PO HS HTN - hold Lisinopril and Inderal due to low BP Liver cirrhosis - ursodiol 300 mg PO BID - hold inderal BP low Hypothyroidism - Levothyroxine 75 mcg PO daily Diet - Pureed thin diet w/ assistance for all feeds - megace 400 mg PO daily for appetite - vitamin C 500 mg PO BID Prophylactic measures - SCD - lactobacillus 1 CAP PO BID - pantoprazole 40 mg PO daily <ChidifCarlos - Last Filed: 03/04/17 14:21> CCU Objective - Vital Signs / Intake & Output Vital Signs (Last 4 hours): Vital Signs Temp Pulse Resp BP Pulse Ox 03/04/17 12:22 99.4 F 82 24 124/64 100 03/04/17 11:40 88 140/60 Intake and Output (Last 8hrs): Intake & Output 03/03/17 03/04/17 03/04/17 22:59 06:59 14:59 Intake Total 1410 460 640 Output Total 3 Balance 1407 460 640 Intake: IV 100 400 100 Intake, Piggyback 450 300 Oral 860 60 240 Output: Urine/Stool Mix 3 - Medications Active Medications: Active Medications Generic Name Dose Route Start Last Admin Trade Name Freq PRN Reason Stop Dose Admin Acetaminophen 650 mg 03/02/17 19:10 Tylenol 325mg Tab PO Q6 PRN Fever >100.4 F Acetaminophen 650 mg 03/02/17 19:10 Tylenol 325mg Tab PO Q6H PRN temp >101 Acetaminophen 650 mg 03/02/17 19:10 Tylenol 325mg Tab PO Q6H PRN Pain, Mild (1-3) Ascorbic Acid 500 mg 03/04/17 17:00 Vitamin C 500 Mg Tab PO BID CAREN Bisacodyl 10 mg 03/02/17 19:06 Dulcolax [place] DAILY PRN Constipation Citalopram Hydrobromide 10 mg 03/02/17 22:00 03/03/17 21:58 Celexa PO 10 mg HS CAREN Administration Docusate Sodium 100 mg 03/03/17 09:00 03/04/17 10:15 Colace PO Not Given BID CAREN Ferrous Sulfate 325 mg 03/03/17 09:00 03/04/17 08:34 Feosol PO 325 mg DAILY CAREN Administration Vancomycin HCl 1 gm/ Sodium 250 mls @ 166.667 mls/hr 03/02/17 18:40 03/04/17 08:37 Chloride IV 166.667 mls/hr Q12 CAREN Administration Protocol Dextrose/Sodium Chloride 1,000 mls @ 50 mls/hr 03/03/17 18:45 03/03/17 19:05 Dextrose 5%-0.9% Ns 500 Ml IV 03/04/17 14:44 50 mls/hr .Q20H CAREN Administration Cefepime HCl 2 gm/ Dextrose 50 mls @ 50 mls/hr 03/04/17 09:00 03/04/17 09:36 IV 50 mls/hr Q12 CAREN Administration Protocol Lactobacillus Acidophilus 1 cap 03/04/17 09:00 03/04/17 08:32 Bacid Acidophilus PO 1 cap BID CAREN Administration Levothyroxine Sodium 75 mcg 03/03/17 09:00 03/04/17 08:37 Synthroid PO 75 mcg DAILY CAREN Administration Magnesium Hydroxide 30 ml 03/02/17 19:06 Milk Of Magnesia PO Q72 PRN Constipation Megestrol Acetate 400 mg 03/05/17 09:00 Megace PO DAILY CAREN Memantine 10 mg 03/03/17 09:00 03/04/17 08:33 Namenda PO 10 mg BID CAREN Administration Multivitamins/Minerals 1 tab 03/03/17 09:00 03/04/17 08:33 Therapeutic-M Tab PO 1 tab DAILY CAREN Administration Pantoprazole Sodium 40 mg 03/03/17 09:00 03/04/17 08:35 Protonix Ec Tab PO 40 mg DAILY CAREN Administration Propranolol HCl 10 mg 03/02/17 19:15 03/04/17 11:40 Inderal PO 10 mg Q8H CAREN Administration Silver Sulfadiazine 1 ea 03/03/17 15:15 03/04/17 08:35 Silvadene 1% 20 Gm TOP 1 applic DAILY CAREN Administration Tramadol HCl 50 mg 03/02/17 19:06 Ultram PO Q6 PRN Pain, moderate (4-7) Tramadol HCl 100 mg 03/02/17 19:06 Ultram PO Q6 PRN Pain, severe (8-10) Ursodiol 300 mg 03/03/17 09:00 03/04/17 08:32 Actigall PO 300 mg BID CAREN Administration - Patient Studies Lab Studies: Microbiology Studies 03/02/17 Unknown MRSA Culture (Admit) - Final Naris MRSA NOT DETECTED 03/02/17 19:00 Gram Stain - Final Knee - Right Wound Culture - Preliminary NO GROWTH AFTER 24 HOURS 03/02/17 19:05 Blood Culture - Preliminary Blood-Venous NO GROWTH AFTER 24 HOURS 03/02/17 18:56 Blood Culture - Preliminary Blood-Venous NO GROWTH AFTER 24 HOURS Lab Studies 03/04/17 03/03/17 Range/Units 04:20 14:20 WBC 5.8 (4.8-10.8) K/uL RBC 3.17 L (3.80-5.20) Mil/uL Hgb 10.5 L (12.0-16.0) g/dL Hct 32.2 L (34.0-47.0) % MCV 101.5 H (81.0-99.0) fl MCH 33.1 H (27.0-31.0) pg MCHC 32.6 L (33.0-37.0) g/dL RDW 18.3 H (11.5-14.5) % Plt Count 66 L D (130-400) K/uL C. difficile Ag & Toxin Negative (NEGATIVE) Laboratory Results - last 24 hr 03/03/17 03/04/17 14:20 04:20 WBC 5.8 RBC 3.17 L Hgb 10.5 L Hct 32.2 L MCV 101.5 H MCH 33.1 H MCHC 32.6 L RDW 18.3 H Plt Count 66 L D C. difficile Ag & Toxin Negative Critical Care Progress Note - Nutrition Nutrition: Nutrition Category Date Time Status Pureed [Dysphagia/Modified Consistency Diet] [DIET] Diets 03/03/17 Dinner Active Attending/Attestation - Attestation I have personally seen and examined this patient.: Yes I have fully participated in the care of the patient.: Yes I have reviewed all pertinent clinical information: Yes Notes (Text): 03/04/17 14:10 The patient was Seen/interviewed and examined by me at the bedside during ICU round, Medical records reviewed and Management issues were discussed and formulated with the house staff. I have reviewed all the relevant clinical, laboratory, hemodynamic, radiographic data and medications Pain issues, skin care, head of the bed elevation, glycemic control were addressed. I concur with resident's assessment and plan of care as transcribed in Dr. Gonzalez note. Patient is 86 Y/O F with PMHx of Arthritis, CHF, Dementia, Fractures, HTN, Hypercholesterolemia, Hyperlipidemia, Hypothyroidism, Pneumonia, and Chronic Kidney Disease Admitted for management of Infection of prosthetic right knee joint S/p recent Removal of Septic TKR and placement of Antibiotic Spacer Continue IV Meropenem and Vanco, Pain control, hydrations, DVT prophylaxis. Clinically improving, Afebrile Full code
--- NOTE | 2017-03-04 11:46 | CP.PCM.PN ---
Subjective - Date & Time of Evaluation Date of Evaluation: 03/04/17 Time of Evaluation: 11:15 - Subjective Subjective: No fever denies CP no SOB abdominal distention with ascites ( pt has hx of Cirrhosis and Ovarian Cancer) tolerated PO diet- ate all her food this breakfast accdg to [employer] Knee pain controlled - pain mostly when she is being turned Objective - Vital Signs/Intake and Output Vital Signs (last 24 hours): Temp Pulse Resp BP Pulse Ox 99.1 F 88 20 140/60 99 03/04/17 08:00 03/04/17 11:40 03/04/17 10:00 03/04/17 11:40 03/04/17 10:00 Intake and Output: 03/04/17 03/04/17 06:59 18:59 Intake Total 560 640 Balance 560 640 - Medications Medications: Current Medications Acetaminophen (Tylenol 325mg Tab) 650 mg PO Q6 PRN PRN Reason: Fever >100.4 F Acetaminophen (Tylenol 325mg Tab) 650 mg PO Q6H PRN PRN Reason: temp >101 Acetaminophen (Tylenol 325mg Tab) 650 mg PO Q6H PRN PRN Reason: Pain, Mild (1-3) Ascorbic Acid (Vitamin C 500 Mg Tab) 500 mg PO BID [facility] Bisacodyl (Dulcolax) 10 mg [place] DAILY PRN PRN Reason: Constipation Citalopram Hydrobromide (Celexa) 10 mg PO HS [facility] Last Admin: 03/03/17 21:58 Dose: 10 mg Docusate Sodium (Colace) 100 mg PO BID [facility] Last Admin: 03/04/17 10:15 Dose: Not Given Ferrous Sulfate (Feosol) 325 mg PO DAILY [facility] Last Admin: 03/04/17 08:34 Dose: 325 mg Vancomycin HCl 1 gm/ Sodium (Chloride) 250 mls @ 166.667 mls/hr IV Q12 CAREN PRN Reason: Protocol Last Admin: 03/04/17 08:37 Dose: 166.667 mls/hr Dextrose/Sodium Chloride (Dextrose 5%-0.9% Ns 500 Ml) 1,000 mls @ 50 mls/hr IV .Q20H [facility] Stop: 03/04/17 14:44 Last Admin: 03/03/17 19:05 Dose: 50 mls/hr Cefepime HCl 2 gm/ Dextrose 50 mls @ 50 mls/hr IV Q12 CAREN PRN Reason: Protocol Last Admin: 03/04/17 09:36 Dose: 50 mls/hr Lactobacillus Acidophilus (Bacid Acidophilus) 1 cap PO BID [facility] Last Admin: 03/04/17 08:32 Dose: 1 cap Levothyroxine Sodium (Synthroid) 75 mcg PO DAILY [facility] Last Admin: 03/04/17 08:37 Dose: 75 mcg Magnesium Hydroxide (Milk Of Magnesia) 30 ml PO Q72 PRN PRN Reason: Constipation Megestrol Acetate (Megace) 400 mg PO DAILY [facility] Memantine (Namenda) 10 mg PO BID [facility] Last Admin: 03/04/17 08:33 Dose: 10 mg Multivitamins/Minerals (Therapeutic-M Tab) 1 tab PO DAILY [facility] Last Admin: 03/04/17 08:33 Dose: 1 tab Pantoprazole Sodium (Protonix Ec Tab) 40 mg PO DAILY [facility] Last Admin: 03/04/17 08:35 Dose: 40 mg Propranolol HCl (Inderal) 10 mg PO Q8H [facility] Last Admin: 03/04/17 11:40 Dose: 10 mg Silver Sulfadiazine (Silvadene 1% 20 Gm) 1 ea TOP DAILY [facility] Last Admin: 03/04/17 08:35 Dose: 1 applic Tramadol HCl (Ultram) 50 mg PO Q6 PRN PRN Reason: Pain, moderate (4-7) Tramadol HCl (Ultram) 100 mg PO Q6 PRN PRN Reason: Pain, severe (8-10) Ursodiol (Actigall) 300 mg PO BID [facility] Last Admin: 03/04/17 08:32 Dose: 300 mg - Labs Labs: 03/04/17 04:20 03/03/17 05:05 - Constitutional Appears: No Acute Distress, Chronically Ill - Head Exam Head Exam: NORMAL INSPECTION, NORMOCEPHALIC - Eye Exam Eye Exam: EOMI, Normal appearance Pupil Exam: NORMAL ACCOMODATION - ENT Exam ENT Exam: Mucous Membranes Dry, Normal External Ear Exam - Neck Exam Neck Exam: Full ROM. absent: Meningismus - Respiratory Exam Respiratory Exam: NORMAL BREATHING PATTERN. absent: Respiratory Distress - Cardiovascular Exam Cardiovascular Exam: REGULAR RHYTHM, +S1, +S2 - GI/Abdominal Exam GI & Abdominal Exam: Distended, Soft, Tenderness, Normal Bowel Sounds - Extremities Exam Extremities Exam: Normal Capillary Refill. 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 During her last admission here , she had Removal of Septic TKR and placement of antibiotic spacer on 02/20/2017 by orthopedics, Dr. Castle. Wound vac was also placed. [facility]. According to [facility]entiary reports, the patients knee continued to be erythematous and edematous and continued to bleed. Due to concern for infection , the patient was transferred back to the ED. In the ED, th knee was noted to have no active bleeding. There was mild serous drainage noted on her dressing. She is noted to be hemodynamically stable on admission. The patient was admitted for IV antibiotics, with orthopedic consultation with Dr. Castle, ID consultation with Dr. Saeed, and Plastics consultation with Dr. Dickerson. (1) Infection of prosthetic right knee joint, Status: SubAcute s/p recent Removal of Septic TKR and placement of Antibiotic Spacer Ortho - Dr Castle ID consulted : Dr saeed cont IV Cefepime and Vanco Pain mgt PT consult DVT proph (2) History of total replacement of right knee 20 yrs ago Status: Chronic 3. Small Wound Dehiscence with Serosanguinous drainage - plastic Surgery consulted - Dr Dickerson rec Silvadene cream and wound dressing - will continue to monitor wound (4) Anemia/Thrombocytopenia Status: Chronic prob sec to Cirrhosis, cannot r/o MDS monitor (5) DM2 (diabetes mellitus, type 2) Status: Chronic Accucheck with coverage 6) Dementia Status: Chronic Pt is on Namenda (7) HTN (hypertension) Status: Chronic hold Lisinopril and Inderal due to low BP (8) Liver cirrhosis Status: Chronic hold Propranolol as BP low 9. Hypothyroidism cont Levothyroxine (10) DVT prophylaxis Status: Acute SCD Lovenox monitor Platelet closely due to sl thrombocytopenia
[2017-03-05 05:20] LABS: BLOOD UREA NITROGEN 24 mg/dl (7-17); CALCIUM 8.4 mg/dL (8.4-10.2); CARBON DIOXIDE 28 mmol/L (22-30); CHLORIDE 108 mmol/L (98-107); GFR AFRICAN-AMERICAN > 60; GLUCOSE,RANDOM 87 mg/dL (65-105); SODIUM 141 mmol/l (132-148)
[2017-03-05] MEDS: Silver Sulfadiazine 1% Cream (20 gm) TOP SCH ×2 (05:28→08:41)
[2017-03-05 05:30] LABS: BASO # 0.1 K/uL (0.0-0.2); BASO % 1.3 % (0.0-2.0); EOS # 0.2 K/uL (0.0-0.7); EOS % 3.1 % (0.0-4.0); HEMATOCRIT 30.2 % (34.0-47.0); LYMPH # 1.2 K/uL (1.0-4.3); LYMPH % 22.3 % (20.0-40.0); MEAN CELL VOLUME 102.1 fl (81.0-99.0); MEAN CORPUSCULAR HEMOGLOBIN 32.7 pg (27.0-31.0); MEAN PLATELET VOLUME 10.4 fl (7.2-11.7); MONO # 0.7 K/uL (0.0-0.8); MONO % 13.4 % (0.0-10.0); NEUT # 3.2 K/uL (1.8-7.0); NEUT % 59.9 % (50.0-75.0); NRBC % 0.3 % (0.0-0.0); RED CELL DISTRIBUTION WIDTH 18.3 % (11.5-14.5); WHITE BLOOD COUNT 5.4 K/uL (4.8-10.8)
[2017-03-05 06:09] VITALS: O2SAT 100
--- NOTE | 2017-03-05 07:20 | CP.PCM.DIS ---
Provider - Provider Date of Admission: 03/02/17 18:43 Attending physician: Geovanni Delcid DO Consults: plastic surgery consult Id consult Time Spent in preparation of Discharge (in minutes): 15 Hospital Course - Lab Results Lab Results: Micro Results 03/02/17 19:05 Blood-Venous Blood Culture - Preliminary NO GROWTH AFTER 48 HOURS 03/02/17 18:56 Blood-Venous Blood Culture - Preliminary NO GROWTH AFTER 48 HOURS 03/02/17 Unknown Naris MRSA Culture (Admit) - Final MRSA NOT DETECTED 03/02/17 19:00 Knee - Right Gram Stain - Final 03/02/17 19:00 Knee - Right Wound Culture - Preliminary NO GROWTH AFTER 24 HOURS Most Recent Lab Values WBC 5.4 K/uL (4.8-10.8) 03/05/17 04:25 RBC 2.96 Mil/uL (3.80-5.20) L 03/05/17 04:25 Hgb 9.7 g/dL (12.0-16.0) L 03/05/17 04:25 Hct 30.2 % (34.0-47.0) L 03/05/17 04:25 MCV 102.1 fl (81.0-99.0) H 03/05/17 04:25 MCH 32.7 pg (27.0-31.0) H 03/05/17 04:25 MCHC 32.0 g/dL (33.0-37.0) L 03/05/17 04:25 RDW 18.3 % (11.5-14.5) H 03/05/17 04:25 Plt Count 81 K/uL (130-400) L 03/05/17 04:25 MPV 10.4 fl (7.2-11.7) 03/05/17 04:25 Neut % (Auto) 59.9 % (50.0-75.0) 03/05/17 04:25 Lymph % (Auto) 22.3 % (20.0-40.0) 03/05/17 04:25 [place] % (Auto) 13.4 % (0.0-10.0) H 03/05/17 04:25 Eos % (Auto) 3.1 % (0.0-4.0) 03/05/17 04:25 Baso % (Auto) 1.3 % (0.0-2.0) 03/05/17 04:25 Neut # 3.2 K/uL (1.8-7.0) 03/05/17 04:25 Lymph # 1.2 K/uL (1.0-4.3) 03/05/17 04:25 [place] # 0.7 K/uL (0.0-0.8) 03/05/17 04:25 Eos # 0.2 K/uL (0.0-0.7) 03/05/17 04:25 Baso # 0.1 K/uL (0.0-0.2) 03/05/17 04:25 pO2 50 mm/Hg (30-55) 03/02/17 19:10 VBG pH 7.45 (7.32-7.43) H 03/02/17 19:10 VBG pCO2 44 mmHg (40-60) 03/02/17 19:10 VBG HCO3 29.2 mmol/L 03/02/17 19:10 VBG Total CO2 32.0 mmol/L (22-28) H 03/02/17 19:10 VBG O2 Sat (Calc) 92.8 % (40-65) H 03/02/17 19:10 VBG Base Excess 5.8 mmol/L (0.0-2.0) H 03/02/17 19:10 VBG Potassium 4.0 mmol/L (3.6-5.2) 03/02/17 19:10 Sodium 140.0 mmol/L (132-148) 03/02/17 19:10 Chloride 107.0 mmol/L (98-107) 03/02/17 19:10 Glucose 108 mg/dL (65-105) H 03/02/17 19:10 Lactate 2.2 mmol/L (0.7-2.1) H 03/02/17 19:10 FiO2 21.0 % 03/02/17 19:10 Sodium 141 mmol/l (132-148) 03/05/17 04:25 Potassium 4.0 MMOL/L (3.6-5.0) 03/05/17 04:25 Chloride 108 mmol/L (98-107) H 03/05/17 04:25 Carbon Dioxide 28 mmol/L (22-30) 03/05/17 04:25 Anion Gap 9 (10-20) L 03/05/17 04:25 BUN 24 mg/dl (7-17) H 03/05/17 04:25 Creatinine 0.8 mg/dL (0.7-1.2) 03/05/17 04:25 Est GFR ( Amer) > 60 03/05/17 04:25 Est GFR (Non-Af Amer) > 60 03/05/17 04:25 POC Glucose (mg/dL) 119 mg/dL (65-110) H 03/02/17 22:57 Random Glucose 87 mg/dL (65-105) 03/05/17 04:25 Calcium 8.4 mg/dL (8.4-10.2) 03/05/17 04:25 Total Bilirubin 0.6 mg/dl (0.2-1.3) 03/02/17 18:56 AST 62 U/L (14-36) H D 03/02/17 18:56 ALT 37 U/L (9-52) 03/02/17 18:56 Alkaline Phosphatase 179 U/L (38-126) H 03/02/17 18:56 Total Protein 6.7 G/DL (6.3-8.2) 03/02/17 18:56 Albumin 2.9 g/dL (3.5-5.0) L 03/02/17 18:56 Globulin 3.8 gm/dL (2.2-3.9) 03/02/17 18:56 Albumin/Globulin Ratio 0.8 (1.0-2.1) L 03/02/17 18:56 Venous Blood Potassium 4.0 mmol/L (3.6-5.2) 03/02/17 19:10 C. 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 During her last admission here , she had Removal of Septic TKR and placement of antibiotic spacer on 02/20/2017 by orthopedics, Dr. Castle. Wound vac was also placed. The patient was then discharged to the halfway on 02/21/2017. According to halfway reports, the patients knee continued to be erythematous and edematous and continued to bleed. Due to concern for infection , the patient was transferred back to the ED. In the ED, the knee was noted to have no active bleeding. There was mild serous drainage noted on her dressing. She is noted to be hemodynamically stable on admission. The patient was admitted for IV antibiotics, with orthopedic consultation with Dr. Castle, ID consultation with Dr. Saeed, and Plastics consultation with Dr. Dickerson.As per consultants patient can be discharged back to OR with no wound vac on IV antibiotics Continue neal bandage wrapping to Right knee 1. Infection of prosthetic right knee joint, SubAcute s/p recent Removal of Septic TKR and placement of Antibiotic Spacer Ortho - Dr Castle ID consulted : Dr Saeed cont IV Cefepime and Vanco x 3 weeks Pain mgt DVT proph 2. 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 Small Wound Dehiscence with Serosanguinous drainage plastic Surgery consulted Dr Dickerson rec Silvadene cream and wound dressing no wound vac needed 4.Anemia/Thrombocytopenia Chronic prob sec to Cirrhosis, cannot r/o MDS monitor 5.DM2 (diabetes mellitus, type 2) Chronic Accucheck with coverage 6. Dementia Chronic Pt is on Namenda 7. HTN (hypertension) Chronic hold Lisinopril and Inderal due to low BP 8. Liver cirrhosis Chronic hold Propranolol as BP low 9. Hypothyroidism cont Levothyroxine 10 DVT prophylaxis SCD Lovenox monitor Platelet closely due to sl thrombocytopenia Discharge Exam - Head Exam Head Exam: ATRAUMATIC, NORMAL INSPECTION, NORMOCEPHALIC - Eye Exam Eye Exam: EOMI, PERRL Pupil Exam: NORMAL ACCOMODATION - ENT Exam ENT Exam: Mucous Membranes Moist, Normal Exam - Neck Exam Neck exam: Full Rom, Normal Inspection - Respiratory Exam Respiratory Exam: Clear to PA & Lateral, NORMAL BREATHING PATTERN. absent: Rhonchi, Wheezes, Respiratory Distress - Cardiovascular Exam Cardiovascular Exam: REGULAR RHYTHM, RRR, +S1, +S2. absent: JVD - GI/Abdominal Exam GI & Abdominal Exam: Normal Bowel Sounds, Soft. absent: Distended, Guarding, Rebound, Tenderness - Rectal Exam Rectal Exam: Deferred - Extremities Exam Additional comments: right knee dressing in place - Neurological Exam Neurological exam: Alert, CN II-XII Intact - Psychiatric Exam Psychiatric exam: Normal Affect - Skin Skin Exam: Dry, Normal Color, Warm Discharge Plan - Follow Up Plan Condition: STABLE Disposition: TRANSF TO SNF Patient education suggested?: Yes Additional Instructions: Continue silvadene and wound dressing to right knee Referrals: Jose Dickerson MD [Staff Provider] - Prince Castle III, MD [Staff Provider] -
[2017-03-05] MEDS: Levothyroxine 75 MCG TAB PO SCH (08:33)
[2017-03-05] MEDS: Lactobacillus Acidophilus 500 MU Cap PO SCH (08:33)
[2017-03-05] MEDS: Pantoprazole 40 mg EC Tab PO SCH (08:33)
[2017-03-05] MEDS: Multivitamin With Minerals Tab PO SCH (08:34)
[2017-03-05] MEDS ORDERED: Megestrol Acetate 40 mg/ml Cup PO SCH (09:00)
[2017-03-05 14:15] VITALS: BP 119/48; PULSE 74; RESP 16
[2017-03-05 16:13] VITALS: TEMP 97.6
== END 2017-03-05 16:25 | DRG 560 ==
LOC: H.ER 18:13 → H.ERHOLD 18:43 → H.ICU/CCU 21:19
PROVIDERS: ADMIT Internal Medicine; ATTEND Internal Medicine
DX: T84.53XA Infection and inflammatory reaction due to internal right knee prosthesis, initial encounter (principal); R18.8 Other ascites; T81.31XA Disruption of external operation (surgical) wound, not elsewhere classified, initial encounter; I13.0 Hypertensive heart and chronic kidney disease with heart failure and stage 1 through stage 4 chronic kidney disease, or unspecified chronic kidney disease; I50.9 Heart failure, unspecified; E11.22 Type 2 diabetes mellitus with diabetic chronic kidney disease; D69.59 Other secondary thrombocytopenia; G30.9 Alzheimer's disease, unspecified; F02.80 Dementia in other diseases classified elsewhere, unspecified severity, without behavioral disturbance, psychotic disturbance, mood disturbance, and anxiety; E03.9 Hypothyroidism, unspecified; Y83.1 Surgical operation with implant of artificial internal device as the cause of abnormal reaction of the patient, or of later complication, without mention of misadventure at the time of the procedure; E78.5 Hyperlipidemia, unspecified; N18.9 Chronic kidney disease, unspecified; K74.60 Unspecified cirrhosis of liver; K59.00 Constipation, unspecified; E78.00 Pure hypercholesterolemia, unspecified; M19.90 Unspecified osteoarthritis, unspecified site; D64.9 Anemia, unspecified; Z85.43 Personal history of malignant neoplasm of ovary